=== PATIENT | female | born 1950 | race Caucasian/White ===

== ENCOUNTER 2016-10-19 13:45 | Inpatient (IN) | payer BC ==
[2016-10-19] VITALS (14 sets, daily range): BP systolic 127–164; BP diastolic 66–77; PULSE 88–107; RESP 15–28; TEMP 98.2–99.7; O2SAT 79–98
[~2016-10-19] VITALS: Ht 160 cm; Wt 41.5 kg
[~2016-10-19 13:45] MED LIST: ALBU1AER INH; ASPI81 PO; CALCTAB75 PO; DUONI NEB; HYDR12.56 PO; LEVA750T PO; PRED5 PO; PROT40TA PO; SPIRCAP INH; SYMB80AE INH; TAB-TAB PO; TOPR25TA2 PO
--- NOTE | 2016-10-19 14:00 | PD ---
HPI Chief Complaint: Respiratory Distress Time Seen by Provider: 14:00 Travel History International Travel<30 days: No Contact w/Intl Traveler<30days: No Traveled to known affect area: No History of Present Illness HPI 66-year-old female came to the emergency room brought by her with history of shortness of breath that is progressively worsening for past couple days. Patient requires 4 L of oxygen at home. When she came into the triage with her 4 L of oxygen her oxygen saturation was 65%. Patient appeared to be in significant distress and unable to speak. She was brought back emergently. When I went to see her she was on nonrebreather mask and oxygen saturation was in the low 90s. No history of chest pain or fevers or chills. Rest of the vital signs were within normal limit. [facility] Past Medical History Narrative Medical List of her past medical, surgical, social and family history was reviewed from the nursing note. Arthritis: Yes (back and neck) Asthma: Yes Autoimmune Disease: No Anxiety: No Depression: No Heart Rhythm Problems: No Cancer: No Cardiovascular Problems: Yes High Cholesterol: No Chest Pain: No Congestive Heart Failure: No COPD: Yes (3 L NC AT HOME) Cerebrovascular Accident: No Diabetes: No Endocrine: No Genitourinary: No Headaches: Yes (EVERY NOW ANS THEN) Hypertension: Yes Immune Disorder: No Musculoskeletal: Yes Neurologic: No Psychiatric: No Reproductive: No Respiratory: Yes Migraines: No Myocardial Infarction: Yes (8-10 YEARS AGO) Seizures: No Sleep Apnea: No Thyroid Disease: No Dilation and Curettage (D&C): Yes Tubal Ligation: Yes Past Surgical History Abdominal Surgery: No Cardiac Surgery: No Ear Surgery: No Endocrine Surgery: No Eye Surgery: No Genitourinary Surgery: No Gynecologic Surgery: Yes (D&C) Oral Surgery: No Thoracic Surgery: No Social History Alcohol Use: No Tobacco Use: No Substance Use: No Allergies-Medications (Allergen,Severity, Reaction): Coded Allergies: Bactrim (Verified Allergy, Severe, 10/19/15) Comments List of her allergies reviewed from the nursing note. Reported Meds & Prescriptions Reported Meds & Active Scripts Active Reported Mucinex D Maximum Strength (Pseudoephedrine-Guaifenesin) 120-1,200 Mg Tab Unknown Dose Mucinex Congestion & Cough (Qnfhegbgzhuzu-SO-Ahgyvhdunfm Liq) 2.5-5-100 Mg/5 Ml Liq Vitamin C (Ascorbic Acid) 250 Mg Chew 250 Mg CHEW BID Multi Vitamin Daily (Multiple Vitamin) 1 Tab Tab 1 Tab PO DAILY Probiotic (Lactobacillus Acidophilus) 1 Cap Cap 1 Cap PO BID Aspirin 81 (Aspirin) 81 Mg Tabdr 81 Mg PO DAILY Cipro (Ciprofloxacin HCl) 500 Mg Tab 500 Mg PO BID Metoprolol Tartrate 50 Mg Tab 50 Mg PO BID Symbicort Inh (Budesonide/Formoterol Fumarate) 160-4.5 Mcg/Act Aero 2 Puff INH Q12HR Proair Hfa 8.5 GM Inh (Albuterol Sulfate) 90 Mcg/Act Aer 2 Puff INH Q4-6H PRN 108 mcg/actuation Tobramycin Neb (Tobramycin) 300 Mg/5 Ml Neb 300 Mg NEB TID Sodium Chloride 1 Gm Tab 1 Gm PO BID Sodium Chloride 1 Gm Tab 1 Gm PO BID Spiriva Handihaler (Tiotropium Inh) 18 Mcg Cap 18 Mcg INH DAILY 1 capsule = 18 mcg Albuterol Neb (Albuterol Sulfate) 2.5 Mg/3 Ml Neb 2.5 Mg NEB TID NEB PRN Narrative Medication List of her home medications reviewed from the nursing note. Review of Systems Except as stated in HPI: all other systems reviewed are Neg Physical Exam Narrative GENERAL: Awake, alert, anxious, significant respiratory distress SKIN: Focused skin assessment warm/dry. HEAD: Atraumatic. Normocephalic. EYES: Pupils equal and round. No scleral icterus. No injection or drainage. ENT: No nasal bleeding or discharge. Mucous membranes pink and moist. NECK: Trachea midline. No JVD. CARDIOVASCULAR: Regular rate and rhythm. No murmur appreciated. RESPIRATORY: Respiratory distress with accessory muscles used, tachypnea, significantly diminished air entry bilaterally GASTROINTESTINAL: Abdomen soft, non-tender, nondistended. Hepatic and splenic margins not palpable. MUSCULOSKELETAL: No obvious deformities. No clubbing. No cyanosis. No edema. NEUROLOGICAL: Awake and alert. No obvious cranial nerve deficits. Motor grossly within normal limits. Normal speech. PSYCHIATRIC: Appropriate mood and affect; insight and judgment normal. Data Data Last Documented VS Vital Signs Date Time Temp Pulse Resp B/P Pulse Ox O2 Delivery O2 Flow Rate FiO2 10/19/16 16:11 93 75 10/19/16 16:00 96 28 158/67 BiPAP 10/19/16 14:12 15 10/19/16 13:50 98.2 Orders Albuterol-Ipratropium Neb (Duoneb Neb) (10/19/16 14:08) Complete Blood Count With Diff (10/19/16 14:13) Basic Metabolic Panel (Bmp) (10/19/16 14:13) B-Type Natriuretic Peptide (10/19/16 14:13) Prothrombin Time / Inr (Pt) (10/19/16 14:13) Magnesium (Mg) (10/19/16 14:13) Troponin I (10/19/16 14:13) Urinalysis - C+S If Indicated (10/19/16 14:13) Iv Access Insert/Monitor (10/19/16 14:13) Electrocardiogram (10/19/16 14:13) Ecg Monitoring (10/19/16 14:13) Oximetry (10/19/16 14:13) Oxygen Administration (10/19/16 14:13) Chest, Single Ap (10/19/16 14:13) Sodium Chloride 0.9% Flush (Ns Flush) (10/19/16 14:15) Methylprednisolone So Succ Inj (Solumedr (10/19/16 14:15) Albuterol-Ipratropium Neb (Duoneb Neb) (10/19/16 14:15) Arterial Blood Gas (Abg) (10/19/16 ) Resp Bipap / Cpap Non Invas Vt (10/19/16 ) Arterial Blood Gas (Abg) (10/19/16 15:20) Arterial Blood Gas (Abg) (10/19/16 17:00) Furosemide Inj (Lasix Inj) (10/19/16 16:00) Admit Order (Ed Use Only) (10/19/16 16:45) Labs Laboratory Tests Test 10/19/16 10/19/16 10/19/16 10/19/16 14:10 14:20 15:39 16:20 Blood Gas Puncture Site RT RADIAL RT RADIAL Blood Gas Patient Temperature 98.6 98.6 Blood Gas HCO3 46 mmol/L 46 mmol/L Blood Gas Base Excess 18.4 mmol/L 18.6 mmol/L Blood Gas Oxygen Saturation 93 % 87 % Arterial Blood pH 7.28 7.30 Arterial Blood Partial 101 mmHg 96 mmHg Pressure CO2 Arterial Blood Partial 85 mmHG 62 mmHG Pressure O2 Arterial Blood Oxygen Content 14.0 Vol % 12.3 Vol % Arterial Blood 2.0 % 2.0 % Carboxyhemoglobin Arterial Blood Methemoglobin 0.6 % 0.5 % Blood Gas Hemoglobin 10.6 G/DL 9.9 G/DL Oxygen Delivery Device MASK BiPAP Blood Gas Liter Flow 8 L/M White Blood Count 9.5 TH/MM3 Red Blood Count 4.71 MIL/MM3 Hemoglobin 12.9 GM/DL Hematocrit 41.9 % Mean Corpuscular Volume 89.0 FL Mean Corpuscular Hemoglobin 27.3 PG Mean Corpuscular Hemoglobin 30.7 % Concent Red Cell Distribution Width 16.4 % Platelet Count 155 TH/MM3 Mean Platelet Volume 8.2 FL Neutrophils (%) (Auto) 81.6 % Lymphocytes (%) (Auto) 12.0 % Monocytes (%) (Auto) 4.8 % Eosinophils (%) (Auto) 1.3 % Basophils (%) (Auto) 0.3 % Neutrophils # (Auto) 7.8 TH/MM3 Lymphocytes # (Auto) 1.1 TH/MM3 Monocytes # (Auto) 0.5 TH/MM3 Eosinophils # (Auto) 0.1 TH/MM3 Basophils # (Auto) 0.0 TH/MM3 CBC Comment DIFF FINAL Differential Comment Prothrombin Time 10.1 SEC Prothromb Time International 0.9 RATIO Ratio Sodium Level 143 MEQ/L Potassium Level 4.6 MEQ/L Chloride Level 97 MEQ/L Carbon Dioxide Level GREATER THAN 45.0 MEQ/L Anion Gap 1 MEQ/L Blood Urea Nitrogen 20 MG/DL Creatinine 0.55 MG/DL Estimat Glomerular Filtration 111 ML/MIN Rate Random Glucose 111 MG/DL Calcium Level 9.7 MG/DL Magnesium Level 2.4 MG/DL Troponin I LESS THAN 0.02 NG/ML B-Type Natriuretic Peptide 143 PG/ML Blood Gas Ventilator Setting Blood Gas Inspired Oxygen 50 % Urine Color YELLOW Urine Turbidity CLEAR Urine pH 5.5 Urine Specific [place] 1.023 Urine Protein 30 mg/dL Urine Glucose (UA) NEG mg/dL Urine Ketones 10 mg/dL Urine Occult Blood NEG Urine Nitrite NEG Urine Bilirubin NEG Urine Urobilinogen LESS THAN 2.0 MG/DL Urine Leukocyte Esterase SMALL Urine RBC 4 /hpf Urine WBC 5 /hpf Urine Squamous Epithelial 1 /hpf Cells Urine Bacteria RARE /hpf Urine Hyaline Casts 3 /lpf Urine Mucus FEW /lpf Microscopic Urinalysis Comment CULT NOT INDICATED MDM Medical Decision Making Medical Screen Exam Complete: Yes Emergency Medical Condition: Yes Medical Record Reviewed: Yes Interpretation(s) Twelve-lead EKG was reviewed by me. Normal sinus rhythm, normal axis, nonspecific ST-T wave changes. Heart rate of 89 bpm. Differential Diagnosis COPD exacerbation, pneumonia, pleural effusion, congestive heart failure Narrative Course 4:08 PM patient received duo nebs 3 and IV Solu-Medrol. I put her on a BiPAP based on the initial blood gas which showed significant respiratory acidosis. Blood test results came back and she does have chronic CO2 retention from what it's looks like. Repeat blood gas after being on the BiPAP for 45 minutes or more showed slight improvement. I've made setting changes on the BiPAP and the FiO2 has been increased from 50% to 70%. A repeat blood gas is pending. Chest x-ray suggestive of COPD and some pleural effusion. I've given her 40 mg of IV Lasix. Awaiting for the aquarist to call back to admit her. Critical Care Narrative Aggregate critical care time was 60 minutes. Time to perform other separately billable procedures was not included in the critical care time. My time did not include minutes spent treating any other patients simultaneously or on activities that did not directly contribute to the patient's treatment. The services I provided to this patient were to treat and/or prevent clinically significant deterioration that could result in: Severe respiratory distress, BiPAP, DuoNeb I provided critical care services requiring my management, as noted below: Chart data review, documentation time, medication orders and management, vital sign assessments/reviewing monitor data, ordering and reviewing lab tests, ordering and interpreting/reviewing x-rays and diagnostic studies, care of the patient and discussion of the patient with the admitting physicians. Procedures EKG Prior to Arrival: No Diagnosis Primary Impression: Respiratory distress Additional Impressions: COPD exacerbation Hypoxia Pleural effusion Admitting Information Admitting Physician Requests: Mojgan Turner MD Oct 19, 2016 14:00
[2016-10-19] MEDS ORDERED: RESP: ALBUTEROL 2.5 MG/IPRATROPIUM 0.5 MG NEB (SCH) ONE (14:08)
[2016-10-19] MEDS ORDERED: CIPR-9 PO (14:11)
[2016-10-19] MEDS ORDERED: SODI1TAB PO (14:11)
[2016-10-19] MEDS ORDERED: ASPI-110 PO (14:11)
[2016-10-19] MEDS ORDERED: LACTCAP8 PO (14:11)
[2016-10-19] MEDS ORDERED: MUCI120T (14:11)
[2016-10-19] MEDS ORDERED: METO50TA PO (14:11)
[2016-10-19] MEDS ORDERED: ALBUAER3 INH (14:11)
[2016-10-19] MEDS ORDERED: MULT1TAB46 PO (14:11)
[2016-10-19] MEDS ORDERED: TOBR1NEB NEB (14:11)
[2016-10-19] MEDS ORDERED: VITA250C3 CHEW (14:11)
[2016-10-19] MEDS ORDERED: ALBU0.08 NEB (14:11)
[2016-10-19] MEDS ORDERED: SPIRCAP INH (14:11)
[2016-10-19] MEDS ORDERED: SYMB160A INH (14:11)
[2016-10-19] MEDS ORDERED: PHEN1LIQ (14:11)
[2016-10-19] MEDS ORDERED: SODIUM CHLORIDE 0.9% FLUSH 10 ML FLUSH IVF PRN (14:15)
[2016-10-19] MEDS ORDERED: methylPREDNISolone SOD SUCC 125 MG/2 ML VIAL IVP ONE (14:15)
[2016-10-19] MEDS: RESP: ALBUTEROL 2.5 MG/IPRATROPIUM 0.5 MG NEB (SCH) INH ×5 (14:15→23:11)
[2016-10-19 14:18] LABS: BLOOD GAS BASE EXCESS 18.4 mmol/L (-2-2); BLOOD GAS HCO3 46 mmol/L (22-26); BLOOD GAS METHEMOGLOBIN 0.6 % (0-2); BLOOD GAS O2 HGB SATURATION 93 % (90-100); BLOOD GAS PCO2 101 mmHg (38-42); BLOOD GAS PO2 85 mmHG (61-120); BLOOD GAS TOTAL HGB 10.6 G/DL (12.0-16.0); CRITICAL VALUE YES; DRAW SITE RT RADIAL; LITER FLOW 8 L/M; NUMBER OF ARTERIAL PUNCTURES 1; OXYGEN DEVICE MASK; STAT YES; TEMP CORR TO 98.6; ULNAR PULSE PRESENT
[2016-10-19 14:47] LABS: INTERNATIONAL NORMALIZED RATIO 0.9 RATIO; PROTHROMBIN TIME - PATIENT 10.1 SEC (9.8-11.6)
[2016-10-19 14:50] LABS: BLOOD UREA NITROGEN 20 MG/DL (7-18); CHLORIDE 97 MEQ/L (98-107); GLOMERULAR FILTRATION RATE 111 ML/MIN (>89); MAGNESIUM 2.4 MG/DL (1.5-2.5); POTASSIUM 4.6 MEQ/L (3.5-5.1); SODIUM (NA) 143 MEQ/L (136-145)
[2016-10-19 14:53] LABS: AUTOMATED NEUTROPHIL # 7.8 TH/MM3 (1.8-7.7); BASOPHIL % 0.3 % (0.0-2.0); EOSINOPHIL # 0.1 TH/MM3 (0-0.4); EOSINOPHIL % 1.3 % (0.0-4.0); HEMATOCRIT 41.9 % (35.0-46.0); HEMO FLAGS DIFF FINAL; LYMPHOCYTE # 1.1 TH/MM3 (1.0-4.8); MEAN CORPUSCULAR HEMOGLOBIN 27.3 PG (27.0-34.0); MEAN CORPUSCULAR HGB CONC 30.7 % (32.0-36.0); MONO % 4.8 % (0.0-8.0); NEUT % 81.6 % (16.0-70.0); PLATELET COUNT 155 TH/MM3 (150-450); RED BLOOD COUNT 4.71 MIL/MM3 (4.00-5.30); RED CELL DISTRIBUTION WIDTH 16.4 % (11.6-17.2); WHITE BLOOD COUNT 9.5 TH/MM3 (4.0-11.0)
--- NOTE | 2016-10-19 15:00 | RADRPT ---
EXAM DATE/TIME: 10/19/2016 14:34 [facility] COMPARISON: CHEST SINGLE AP, October 23, 2015, 8:50. INDICATIONS : Shortness of breath. MEDICAL HISTORY : Hypertension. Emphysema. Myocardial infarction. COPD SURGICAL HISTORY : None. ENCOUNTER: Initial ACUITY: 1 day PAIN SCORE: 0/10 LOCATION: Bilateral chest FINDINGS: Haziness and interstitial prominence has developed in the lungs. There are bilateral effusions with s mall to moderate moderate accumulation on the right and small effusion on the left. Heart is mildly enlarged. Bibasilar airspace disease is noted. CONCLUSION: COPD with underlying pulmonary congestion, basilar airspace disease and bilateral pleural effusions. Misbah Anand MD on October 19, 2016 at 14:56 Board Certified Radiologist. This report was verified electronically.
[2016-10-19 15:28] LABS: ANION GAP 1 MEQ/L (5-15); BICARBONATE GREATER THAN 45.0 MEQ/L (21.0-32.0)
[2016-10-19] MEDS ORDERED: FUROSEMIDE 40 MG/4 ML VIAL IV PUSH ONE (16:00)
[2016-10-19 16:09] LABS: BLOOD GAS BASE EXCESS 18.6 mmol/L (-2-2); BLOOD GAS HCO3 46 mmol/L (22-26); BLOOD GAS METHEMOGLOBIN 0.5 % (0-2); BLOOD GAS O2 HGB SATURATION 87 % (90-100); BLOOD GAS OXYGEN CONTENT 12.3 Vol % (12.0-20.0); BLOOD GAS PCO2 96 mmHg (38-42); BLOOD GAS PO2 62 mmHG (61-120); BLOOD GAS TOTAL HGB 9.9 G/DL (12.0-16.0); TEMP CORR TO 98.6
[2016-10-19 16:10] LABS: CRITICAL VALUE YES; DRAW SITE RT RADIAL; FIO2 50 %; NUMBER OF ARTERIAL PUNCTURES 1; OXYGEN DEVICE BiPAP; STAT NO; ULNAR PULSE PRESENT
[2016-10-19 16:39] LABS: BACTERIA, URINE RARE /hpf; BLOOD, URINE NEG (NEG); COMMENT (UR) CULT NOT INDICATED; CULTURE IF INDICATED CULT NOT INDICATED; GLUCOSE,URINE NEG (NEG); HYALINE CAST, URINE 3 /lpf (RARE); KETONE, URINE 10 mg/dL (NEG); MUCUS URINE FEW /lpf (OCC); NITRITE,URINE NEG (NEG); PH, URINE 5.5 (5.0-8.5); SQUAMOUS EPITHELIAL CELL URINE 1 /hpf (0-5); URINE COLOR YELLOW (YELLW/STRAW)
[2016-10-19 17:17] LABS: BLOOD GAS BASE EXCESS 20.6 mmol/L (-2-2); BLOOD GAS CARBOXYHEMOGLOBIN 1.9 % (0-4); BLOOD GAS HCO3 48 mmol/L (22-26); BLOOD GAS METHEMOGLOBIN 0.6 % (0-2); BLOOD GAS O2 HGB SATURATION 94 % (90-100); BLOOD GAS OXYGEN CONTENT 14.3 Vol % (12.0-20.0); BLOOD GAS PCO2 96 mmHg (38-42); BLOOD GAS PO2 87 mmHG (61-120); BLOOD GAS TOTAL HGB 10.7 G/DL (12.0-16.0); CRITICAL VALUE YES; OXYGEN DEVICE BiPAP; TEMP CORR TO 98.6
[2016-10-19 17:18] LABS: DRAW SITE RT RADIAL; FIO2 75 %; NUMBER OF ARTERIAL PUNCTURES 1; STAT NO; ULNAR PULSE PRESENT
--- NOTE | 2016-10-19 17:44 | HHI.HP ---
[facility] Service Critical Care Medicine Primary Care Physician Patricia Acuña MD Admission Diagnosis respiratory distress, hypoxia, respiratory acidosis Diagnosis: (1) Acute exacerbation of chronic obstructive pulmonary disease (COPD) Diagnosis: Principal (2) Atypical pneumonia Diagnosis: Principal (3) Chronic respiratory failure with hypoxia Diagnosis: Principal (4) Hypertension Diagnosis: Principal (5) CAD (coronary artery disease) Diagnosis: Principal (6) Vertical strabismus, left eye Diagnosis: Principal (7) Osteoarthritis Diagnosis: Principal (8) History of myocardial infarction Diagnosis: Principal Chief Complaint: Shortness of breath 2 weeks Travel History International Travel<30 Days: No Contact w/Intl Traveler <30 Da: No Traveled to Known Affected Are: No History of Present Illness 66-year-old female. Date of admission 10/19/2016. Past medical history includes chronic respiratory failure on 3-4 L nasal cannula at home and follows with Dr. Knapp for pulmonology. Past medical history as includes osteoarthritis, history of coronary disease status post [place] 10 years ago and hypertension. Patient resists the [facility] with a two-week history of increasing shortness of breath, sputum production/green to white. No hemoptysis. Review of Systems Constitutional: COMPLAINS OF: Fatigue, Weight loss, DENIES: Weight gain Endocrine: DENIES: Polydipsia, Polyuria Eyes: DENIES: Eye pain, Vision loss Ears, nose, mouth, throat: COMPLAINS OF: Hearing loss, DENIES: Tinnitus Respiratory: COMPLAINS OF: Cough, Sputum production, Shortness of breath, DENIES: Apneas, Wheezing Cardiovascular: DENIES: Chest pain, Lower Extremity Edema Gastrointestinal: COMPLAINS OF: Abdominal pain, Nausea, Vomiting, DENIES: Constipation, Diarrhea, Difficulty Swallowing Genitourinary: DENIES: Urinary incontinence, Urgency Musculoskeletal: DENIES: Joint pain, Joint Swelling Integumentary: DENIES: Pruritus Hematologic/lymphatic: DENIES: Bruising Immunologic/allergic: DENIES: Eczema Neurologic: DENIES: Abnormal gait, Headache Psychiatric: COMPLAINS OF: Anxiety, DENIES: Confusion, Mood changes Past Family Social History Allergies: Coded Allergies: Bactrim (Verified Allergy, Severe, 10/19/15) Past Medical History Left eye strabismus Osteoarthritis Obstructive lung disease Chronic respiratory failure on 3-4 L nasal cannula Coronary artery disease History of myocardial infarction Hypertension Past Surgical History D&C Tubal ligation Reported Medications Mucinex D Maximum Strength (Pseudoephedrine-Guaifenesin) 120-1,200 Mg Tab Unknown Dose Mucinex Congestion & Cough (Aaiovjzpwudfz-WU-Xnpguutaotx Liq) 2.5-5-100 Mg/5 Ml Liq Vitamin C (Ascorbic Acid) 250 Mg Chew 250 Mg CHEW BID Multi Vitamin Daily (Multiple Vitamin) 1 Tab Tab 1 Tab PO DAILY Probiotic (Lactobacillus Acidophilus) 1 Cap Cap 1 Cap PO BID Aspirin 81 (Aspirin) 81 Mg Tabdr 81 Mg PO DAILY Cipro (Ciprofloxacin HCl) 500 Mg Tab 500 Mg PO BID Metoprolol Tartrate 50 Mg Tab 50 Mg PO BID Symbicort Inh (Budesonide/Formoterol Fumarate) 160-4.5 Mcg/Act Aero 2 Puff INH Q12HR Proair Hfa 8.5 GM Inh (Albuterol Sulfate) 90 Mcg/Act Aer 2 Puff INH Q4-6H PRN 108 mcg/actuation Tobramycin Neb (Tobramycin) 300 Mg/5 Ml Neb 300 Mg NEB TID Sodium Chloride 1 Gm Tab 1 Gm PO BID Sodium Chloride 1 Gm Tab 1 Gm PO BID Spiriva Handihaler (Tiotropium Inh) 18 Mcg Cap 18 Mcg INH DAILY 1 capsule = 18 mcg Albuterol Neb (Albuterol Sulfate) 2.5 Mg/3 Ml Neb 2.5 Mg NEB TID NEB PRN Active Ordered Medications Reviewed in EMR Family History Father with prostate cancer with metastases to the bone Mother with brain cancer Social History No tobacco history. nO Alcohol or IV drug use Physical Exam Vital Signs Vital Signs Date Time Temp Pulse Resp B/P Pulse Ox O2 Delivery O2 Flow Rate FiO2 10/19/16 17:00 94 28 154/67 93 BiPAP 50 10/19/16 16:11 93 75 10/19/16 16:00 96 28 158/67 94 BiPAP 50 10/19/16 15:00 90 28 155/66 95 BiPAP 10/19/16 14:38 96 50 10/19/16 14:27 95 BiPAP 50 10/19/16 14:12 88 15 164/72 91 Non-Rebreather 15 10/19/16 13:56 20 68 Nasal Cannula 4 10/19/16 13:56 92 Non-Rebreather 10/19/16 13:56 94 Non-Rebreather 15 10/19/16 13:50 98.2 90 20 127/70 79 Room Air Physical Exam GENERAL: 66-year-old female, currently clear currently resting in bed on BiPAP SKIN: Warm and dry. No rash HEAD: Atraumatic. Normocephalic. EYES: Pupils equal and round about 3 mm bilaterally and reactive. No scleral icterus. No injection or drainage. ENT: No nasal bleeding or discharge. Mucous membranes pink and moist. NECK: Trachea midline. No JVD. CARDIOVASCULAR: Regular rate and rhythm. S1, S2. No S4. Without murmur RESPIRATORY: Ms. breath sounds throughout. Positive straight extremities. Few crackles patient bases bilaterally.. GASTROINTESTINAL: Abdomen soft, non-tender, scaphoid. Hypoactive bowel sounds. MUSCULOSKELETAL: Extremities trace nonpitting lower extremity edema. Negative Homans sign. No obvious deformities. NEUROLOGICAL: Awake and alert. No obvious cranial nerve deficits. Motor grossly within normal limits. Five out of 5 muscle strength in the arms and legs. Normal speech. PSYCHIATRIC: Appropriate mood and affect; insight and judgment normal. Laboratory Laboratory Tests Test 10/19/16 10/19/16 10/19/16 10/19/16 14:10 14:20 15:39 16:20 Blood Gas Puncture Site RT RADIAL RT RADIAL Blood Gas Patient Temperature 98.6 98.6 Blood Gas HCO3 46 46 Blood Gas Base Excess 18.4 18.6 Blood Gas Oxygen Saturation 93 87 Arterial Blood pH 7.28 7.30 Arterial Blood Partial 101 96 Pressure CO2 Arterial Blood Partial 85 62 Pressure O2 Arterial Blood Oxygen Content 14.0 12.3 Arterial Blood 2.0 2.0 Carboxyhemoglobin Arterial Blood Methemoglobin 0.6 0.5 Blood Gas Hemoglobin 10.6 9.9 Oxygen Delivery Device MASK BiPAP Blood Gas Liter Flow 8 White Blood Count 9.5 Red Blood Count 4.71 Hemoglobin 12.9 Hematocrit 41.9 Mean Corpuscular Volume 89.0 Mean Corpuscular Hemoglobin 27.3 Mean Corpuscular Hemoglobin 30.7 Concent Red Cell Distribution Width 16.4 Platelet Count 155 Mean Platelet Volume 8.2 Neutrophils (%) (Auto) 81.6 Lymphocytes (%) (Auto) 12.0 Monocytes (%) (Auto) 4.8 Eosinophils (%) (Auto) 1.3 Basophils (%) (Auto) 0.3 Neutrophils # (Auto) 7.8 Lymphocytes # (Auto) 1.1 Monocytes # (Auto) 0.5 Eosinophils # (Auto) 0.1 Basophils # (Auto) 0.0 CBC Comment DIFF FINAL Differential Comment Prothrombin Time 10.1 Prothromb Time International 0.9 Ratio Sodium Level 143 Potassium Level 4.6 Chloride Level 97 Carbon Dioxide Level GREATER THAN 45.0 Anion Gap 1 Blood Urea Nitrogen 20 Creatinine 0.55 Estimat Glomerular Filtration 111 Rate Random Glucose 111 Calcium Level 9.7 Magnesium Level 2.4 Troponin I LESS THAN 0.02 B-Type Natriuretic Peptide 143 Blood Gas Ventilator Setting Blood Gas Inspired Oxygen 50 Urine Color YELLOW Urine Turbidity CLEAR Urine pH 5.5 Urine Specific [place] 1.023 Urine Protein 30 Urine Glucose (UA) NEG Urine Ketones 10 Urine Occult Blood NEG Urine Nitrite NEG Urine Bilirubin NEG Urine Urobilinogen LESS THAN 2.0 Urine Leukocyte Esterase SMALL Urine RBC 4 Urine WBC 5 Urine Squamous Epithelial 1 Cells Urine Bacteria RARE Urine Hyaline Casts 3 Urine Mucus FEW Microscopic Urinalysis Comment CULT NOT INDICATED Test 10/19/16 17:02 Blood Gas Puncture Site RT RADIAL Blood Gas Patient Temperature 98.6 Blood Gas HCO3 48 Blood Gas Base Excess 20.6 Blood Gas Oxygen Saturation 94 Arterial Blood pH 7.32 Arterial Blood Partial 96 Pressure CO2 Arterial Blood Partial 87 Pressure O2 Arterial Blood Oxygen Content 14.3 Arterial Blood 1.9 Carboxyhemoglobin Arterial Blood Methemoglobin 0.6 Blood Gas Hemoglobin 10.7 Oxygen Delivery Device BiPAP Blood Gas Ventilator Setting Blood Gas Inspired Oxygen 75 Result Diagram: 10/19/16 1420 10/19/16 1420 Imaging Last Impressions Chest X-Ray 10/19/16 1413 Signed Impressions: Service Date/Time: October 14:34 - CONCLUSION: COPD with underlying pulmonary congestion, basilar airspace disease and bilateral pleural effusions. Misbah Anand MD Assessment and Plan Assessment and Plan Neuro/Psych: Acetaminophen for fever [place]/morphine for pain management CV: Coronary artery disease Hypertension Continue metoprolol 50 mill grams by mouth twice a day for essential hypertension 2-D echocardiogram ordered. Troponin less than 0.02 EKG reveals no signs of acute ST elevation. There is left axis deviation/mild LVH appreciated Resp Acute on chronic respiratory failure History of obstructive lung disease. No smoking history. Alpha-1 anti-trypsin workup negative Currently on BiPAP 16/80 at 50% Wean FiO2 to keep saturations around [address] knapp/pulmonology Bronchodilator therapy every 6 hours and albuterol every 2 hours when necessary dyspnea Follow-up chest images AM. GI: Nausea/vomiting LFT/lipase pending Currently nothing by mouth Protonix for GI prophylaxis Alyssa-Colace twice a day for bowel regimen : Coffman catheter if indicated for accurate I's and O's in a critically ill patient Endo: Sliding-scale insulin with Accu-Cheks to maintain euglycemia/low regimen Renal: Creatinine currently within normal limits Accurate I's and O's Monitor urine output closely Heme: CBC essentially within normal limits Recheck in a.m. ID: Day 1 cefepime/Zithromax and vancomycin for community-acquired pneumonia/ICU per [facility] protocol Previously on ciprofloxacin and Terramycin aerosols twice a day Blood cultures 2, urine Legionella pneumococcal/influenza in sputum all pending Previously on tobramycin aerosols and ciprofloxacin MSK: PT to evaluate and treat FEN: Replace electrolytes as clinically indicated Access - Peripheral IV. Central line if indicated Prophylaxis - GI - Protonix - DVT - SCD/heparin subcutaneous Critical Care: The total critical care time was 55 minutes. Time to perform other separately billable procedures was not included in the critical care time. Code Status Full code Discussed Condition With Dr. Shelton/ED physician and patient. at bedside Care plan discussed all questions answered. Problem Qualifiers (1) Hypertension: Qualified Code: I10 - Essential hypertension (2) CAD (coronary artery disease): Qualified Code: I25.10 - Coronary artery disease involving pauma heart without angina pectoris, unspecified vessel or lesion type (3) Osteoarthritis: Qualified Code: M19.90 - Osteoarthritis, unspecified osteoarthritis type, unspecified site Han Alvarez MD Oct 19, 2016 17:44
[2016-10-19] MEDS ORDERED: BISACODYL 10 MG SUPP RECTAL PRN (17:45)
[2016-10-19] MEDS ORDERED: LACTULOSE SYRUP 20 GM/30 ML CUP PO PRN (17:45)
[2016-10-19] MEDS ORDERED: MAGNESIUM HYDROXIDE SUSP 30 ML CUP PO PRN (17:45)
[2016-10-19] MEDS ORDERED: CHLORHEXIDINE GLUCONATE 2 % 1 PACK (2 CLOTHS) TOP PRN (17:45)
[2016-10-19] MEDS ORDERED: RESP: ALBUTEROL 2.5 MG/3 ML NEB (PRN) INH (17:45)
[2016-10-19] MEDS ORDERED: SODIUM CHLORIDE 0.9% FLUSH 10 ML FLUSH IV FLUSH PRN (17:45)
[2016-10-19] MEDS ORDERED: MORPHINE SULFATE 4 MG/ML INJ IV PRN (17:45)
[2016-10-19] MEDS ORDERED: Vancomycin Consult Pharmacy 1 EA OTHER SCH (17:45)
[2016-10-19] MEDS ORDERED: MISCELLANEOUS NURSING INFORMATION XX SCH (17:45)
[2016-10-19] MEDS ORDERED: SENNOSIDES 8.6 MG TAB PO PRN (17:45)
[2016-10-19] MEDS ORDERED: ONDANSETRON HCL 4 MG/2 ML VIAL IV PRN (17:45)
[2016-10-19] MEDS: SODIUM CHLOR 0.9% 1000 ML INJ 1,000 ML IV SCH (18:49)
[2016-10-19] MEDS: ARTIFICIAL TEARS OPTH SOLN 15 ML BTL EACH EYE SCH (18:51)
--- NOTE | 2016-10-19 19:21 | RADRPT ---
EXAM DATE/TIME: 10/19/2016 18:51 [facility] COMPARISON: No previous studies available for comparison. INDICATIONS : Bilateral leg edema. MEDICAL HISTORY : Myocardial infarction. Osteoporosis. Emphysema. COPD. Asthma. Sputum production. Dyspnea. Abdominal p ain. HTN. Arthritis. Anxiety. Shingles. SURGICAL HISTORY : Tubal ligation. D&C. ENCOUNTER: Initial ACUITY: 1 day PAIN SCORE: 0/10 LOCATION: Bilateral leg. TECHNIQUE: Venous ultrasound of the left and right leg was performed from the inguinal ligament to the proximal calf. Real-time, color Doppler and spectral tracing, compression and augmentation techniques were us ed. FINDINGS: RIGHT LEG: There is normal compressibility of the deep venous system from the inguinal region to the proximal ca lf. No echogenic clot is seen in the lumen of the common femoral, femoral, popliteal, and posterior tibial veins. There is a normal response of the venous system to proximal and distal augmentation an d respiration. LEFT LEG: There is normal compressibility of the deep venous system from the inguinal region to the proximal ca lf. No echogenic clot is seen in the lumen of the common femoral, femoral, popliteal, and posterior tibial veins. There is a normal response of the venous system to proximal and distal augmentation an d respiration. CONCLUSION: No DVT of either lower extremity. Negro Rodrigez MD on October 19, 2016 at 19:19 Board Certified Radiologist. This report was verified electronically.
[2016-10-19] MEDS: CEFEPIME INJ 2,000 MG in SODIUM CHLORIDE 0.9% INJ 100 ML IV SCH (19:31)
[2016-10-19] MEDS: VANCOMYCIN INJ 750 MG in SODIUM CHLOR 0.9% 250 ML INJ 250 ML IV SCH (19:53)
[2016-10-19] MEDS: BUDESONIDE-FORMOTEROL 160/4.5 MCG INHALER INH SCH (21:00)
[2016-10-19] MEDS: ENOXAPARIN SODIUM 40 MG/0.4 ML SYRINGE SQ SCH (21:32)
[2016-10-19] MEDS: DOCUSATE SODIUM 50 MG/SENNA 8.6 MG TAB PO SCH (21:32)
[2016-10-19] MEDS: AZITHROMYCIN INJ 500 MG in SODIUM CHLOR 0.9% 250 ML INJ 250 ML IV SCH (21:32)
[2016-10-19] MEDS: METOPROLOL TARTRATE 50 MG TAB PO SCH (21:32)
[2016-10-19] MEDS: CHLORHEXIDINE GLUCONATE 2 % 1 PACK (2 CLOTHS) TOP SCH (21:33)
[2016-10-19] MEDS: SODIUM CHLORIDE 0.9% FLUSH 10 ML FLUSH IV FLUSH SCH (21:38)
[2016-10-20] VITALS (19 sets, daily range): BP systolic 116–141; BP diastolic 54–69; PULSE 77–96; RESP 20–30; TEMP 98.1–98.7; O2SAT 89–100
[2016-10-20 01:00] LABS: INDIRECT BILIRUBIN 0.3 MG/DL (0.0-0.8); TOTAL BILIRUBIN ADULT 0.4 MG/DL (0.2-1.0)
[2016-10-20] MEDS ORDERED: methylPREDNISolone SOD SUCC 40 MG/1 ML VIAL IV SCH (02:00)
[2016-10-20] MEDS: RESP: ALBUTEROL 2.5 MG/IPRATROPIUM 0.5 MG NEB (SCH) INH ×3 (03:17→11:04)
[2016-10-20] MEDS: CEFEPIME INJ 2,000 MG in SODIUM CHLORIDE 0.9% INJ 100 ML IV SCH ×3 (03:40→18:49)
[2016-10-20 05:12] LABS: AUTOMATED NEUTROPHIL # 5.8 TH/MM3 (1.8-7.7); BASOPHIL % 0.1 % (0.0-2.0); HEMATOCRIT 30.3 % (35.0-46.0); LYMPHOCYTE # 0.6 TH/MM3 (1.0-4.8); MEAN CORPUSCULAR HEMOGLOBIN 27.1 PG (27.0-34.0); MEAN CORPUSCULAR HGB CONC 30.9 % (32.0-36.0); MONO % 4.4 % (0.0-8.0); NEUT % 86.5 % (16.0-70.0); PLATELET COUNT 97 TH/MM3 (150-450); RED BLOOD COUNT 3.45 MIL/MM3 (4.00-5.30); RED CELL DISTRIBUTION WIDTH 15.5 % (11.6-17.2); WHITE BLOOD COUNT 6.7 TH/MM3 (4.0-11.0)
[2016-10-20 05:13] LABS: HEMO FLAGS AUTO DIFF
[2016-10-20 05:25] LABS: APTT (PATIENT) 28.9 SEC (24.3-30.1); PROTHROMBIN TIME - PATIENT 11.1 SEC (9.8-11.6)
[2016-10-20 05:43] LABS: ALKALINE PHOSPHATASE 64 U/L (45-117); ALT (GPT) 16 U/L (10-53); AST (GOT) 9 U/L (15-37); BLOOD UREA NITROGEN 20 MG/DL (7-18); CHLORIDE 97 MEQ/L (98-107); GLOMERULAR FILTRATION RATE 156 ML/MIN (>89); MAGNESIUM 2.1 MG/DL (1.5-2.5); POTASSIUM 4.4 MEQ/L (3.5-5.1); SODIUM (NA) 145 MEQ/L (136-145); TOTAL BILIRUBIN ADULT 0.3 MG/DL (0.2-1.0)
[2016-10-20 05:53] LABS: ANION GAP 3 MEQ/L (5-15); BICARBONATE GREATER THAN 45.0 MEQ/L (21.0-32.0)
[2016-10-20 06:04] LABS: SCAN/DIFF AUTO DIFF CONFIRMED
[2016-10-20] MEDS: SODIUM CHLOR 0.9% 1000 ML INJ 1,000 ML IV SCH ×2 (06:36→17:42)
--- NOTE | 2016-10-20 06:53 | HHI.CCPN ---
Subjective Remarks/Hospital Course 66-year-old female. Date of admission 10/19/2016. Past medical history includes chronic respiratory failure on 3-4 L nasal cannula at home and follows with Dr. Knapp for pulmonology. Past medical history as includes osteoarthritis, history of coronary disease status post NC 10 years ago and hypertension. Patient presents to the [facility] ED with a two-week history of increasing shortness of breath, sputum production/green to white. No hemoptysis. She presented to the ED. Initially placed on BiPAP and noted to have an elevated PCO2 greater than 100. After adjustments PCO2 remained above 95 however the patient was awake and alert and oriented to person place time and year. Decision was made to monitor. Subjective 10/20: Afebrile. Taken off BiPAP earlier this evening in currently on 4 L nasal cannula. States she feels subjectively improved. Continues to have cough productive of white sputum. Objective Vital Signs Date Time Temp Pulse Resp B/P Pulse Ox O2 Delivery O2 Flow Rate FiO2 10/20/16 05:00 88 24 134/61 91 10/20/16 04:00 98.6 10/20/16 02:00 Nasal Cannula 5.00 10/19/16 19:30 40 Intake and Output 10/19/16 10/19/16 10/20/16 08:00 16:00 00:00 Intake Total 736 ml Output Total 100 ml Balance 636 ml Result Diagram: 10/20/16 0452 10/20/16 0452 Other Results Microbiology Date/Time Procedure Status Source Growth 10/19/16 18:30 Gram Stain Received Sputum Expectorated Sputum Pending 10/19/16 18:30 Sputum Culture Received Sputum Expectorated Sputum Pending Imaging Last Impressions Chest X-Ray 10/19/16 1413 Signed Impressions: Service Date/Time: October 14:34 - CONCLUSION: COPD with underlying pulmonary congestion, basilar airspace disease and bilateral pleural effusions. Misbah Anand MD Lower Extremity Ultrasound 10/19/16 0000 Signed Impressions: Service Date/Time: October 18:51 - CONCLUSION: No DVT of either lower extremity. Negro Rodrigez MD Objective Remarks GENERAL: 66-year-old female, resting in bed on nasal cannula in no acute distress SKIN: Warm and dry. No rash HEAD: Atraumatic. Normocephalic. EYES: Pupils equal and round about 2-3 mm bilaterally and reactive. No scleral icterus. No injection or drainage. ENT: No nasal bleeding or discharge. Mucous membranes pink and moist. Oropharynx without thrush NECK: Trachea midline. No JVD. CARDIOVASCULAR: Regular rate and rhythm. S1, S2. No S4. Without murmur RESPIRATORY: Few crackles appreciated in the bases bilaterally. Positive end expiratory wheeze. GASTROINTESTINAL: Abdomen soft, non-tender, scaphoid. Hypoactive bowel sounds. MUSCULOSKELETAL: Extremities trace nonpitting lower extremity edema. Negative Homans sign. No obvious deformities. NEUROLOGICAL: Awake and alert. No obvious cranial nerve deficits. Motor grossly within normal limits. Five out of 5 muscle strength in the arms and legs. Normal speech. PSYCHIATRIC: Appropriate mood and affect; insight and judgment normal. A/P Assessment and Plan Neuro/Psych: Acetaminophen for fever [place]/morphine for pain management CV: Coronary artery disease Hypertension Continue metoprolol 50 mill grams by mouth twice a day for essential hypertension 2-D echocardiogram ordered. Results pending Troponin less than 0.02 EKG reveals no signs of acute ST elevation. There is left axis deviation/mild LVH appreciated Resp Acute on chronic respiratory failure History of obstructive lung disease. No smoking history. Alpha-1 anti-trypsin workup negative Currently on nasal cannula to maintain saturations greater than equal to 92% Wean FiO2 to keep saturations around [address] Knapp/pulmonology Bronchodilator therapy every 6 hours and albuterol every 2 hours when necessary dyspnea Continue Symbicort 160/4.5 2 puffs twice a day Continue Spiriva 18 g inhalation daily Follow-up CT chest AM. 1 dose of Diamox due to significant alkalosis GI: Nausea/vomiting LFT/lipase negative Currently nothing by mouth. Will initiate diet Protonix for GI prophylaxis Alyssa-Colace twice a day for bowel regimen : Coffman catheter if indicated for accurate I's and O's in a critically ill patient Endo: Sliding-scale insulin with Accu-Cheks to maintain euglycemia/low regimen Renal: Creatinine currently within normal limits Accurate I's and O's Monitor urine output closely Heme: Normocytic anemia Thrombocytopenia Likely partially dilutional. We'll recheck CBC in AM. Monitor trends ID: Day 2 cefepime/Zithromax and vancomycin for community-acquired pneumonia/ICU per [facility] protocol Previously on ciprofloxacin and Terramycin aerosols twice a day Blood cultures 2, urine Legionella pneumococcal/influenza and sputum all pending Previously on tobramycin aerosols and ciprofloxacin MSK: PT to evaluate and treat FEN: Replace electrolytes as clinically indicated Previous on scheduled sodium chloride 2 g daily Access - Peripheral IV. Central line if indicated Prophylaxis - GI - Protonix - DVT - SCD/Lovenox subcutaneous Critical Care: The total care time was 35 minutes. Time to perform other separately billable procedures was not included in the critical care time. Level II Han Alvarez MD Oct 20, 2016 06:53
[2016-10-20] MEDS ORDERED: PILL SPLITTER OTHER PRN (07:00)
[2016-10-20] MEDS: ARTIFICIAL TEARS OPTH SOLN 15 ML BTL EACH EYE SCH ×3 (07:54→17:42)
[2016-10-20] MEDS: VANCOMYCIN INJ 750 MG in SODIUM CHLOR 0.9% 250 ML INJ 250 ML IV SCH ×2 (07:54→23:04)
[2016-10-20] MEDS: MULTIVITAMIN TAB PO SCH (07:55)
[2016-10-20] MEDS: METOPROLOL TARTRATE 50 MG TAB PO SCH ×2 (07:55→23:02)
[2016-10-20] MEDS: ASCORBIC ACID 500 MG TAB PO SCH (07:55)
[2016-10-20] MEDS: ASPIRIN EC 81 MG TABEC PO SCH (07:55)
[2016-10-20] MEDS: SODIUM CHLORIDE 0.9% FLUSH 10 ML FLUSH IV FLUSH SCH ×2 (07:55→23:04)
[2016-10-20] MEDS: PANTOPRAZOLE SODIUM 40 MG VIAL IV SCH (07:55)
[2016-10-20] MEDS: DOCUSATE SODIUM 50 MG/SENNA 8.6 MG TAB PO SCH ×2 (07:56→23:02)
[2016-10-20] MEDS ORDERED: TIOTROPIUM BROMIDE 18 MCG INH INH SCH (09:00)
[2016-10-20] MEDS: BUDESONIDE-FORMOTEROL 160/4.5 MCG INHALER INH SCH ×2 (11:12→23:04)
--- NOTE | 2016-10-20 11:59 | PD.TRANSFR ---
Transfer Summary Admission Date Oct 19, 2016 at 16:48 Transfer Date: Oct 20, 2016 Admitting Diagnosis respiratory distress, hypoxia, respiratory acidosis Diagnoses: (1) Acute exacerbation of chronic obstructive pulmonary disease (COPD) Diagnosis: Principal (2) Atypical pneumonia Diagnosis: Principal (3) Chronic respiratory failure with hypoxia Diagnosis: Principal (4) Hypertension Diagnosis: Principal (5) CAD (coronary artery disease) Diagnosis: Principal (6) Vertical strabismus, left eye Diagnosis: Principal (7) Osteoarthritis Diagnosis: Principal (8) History of myocardial infarction Diagnosis: Principal Significant Findings Please see orders Transfer Summary/Subjective Please see note Objective Vital Signs Date Time Temp Pulse Resp B/P Pulse Ox O2 Delivery O2 Flow Rate FiO2 10/20/16 10:00 77 10/20/16 08:00 98.3 22 130/60 95 10/20/16 08:00 Nasal Cannula 4.00 10/19/16 19:30 40 Intake and Output 10/19/16 10/19/16 10/20/16 08:00 16:00 00:00 Intake Total 736 ml Output Total 100 ml Balance 636 ml Result Diagram: 10/20/16 0452 10/20/16 0452 Other Results Laboratory Tests Test 10/19/16 10/19/16 10/19/16 14:10 15:39 17:02 Blood Gas Puncture Site RT RADIAL RT RADIAL RT RADIAL Blood Gas Patient Temperature 98.6 98.6 98.6 Blood Gas HCO3 46 mmol/L 46 mmol/L 48 mmol/L (22-26) (22-26) (22-26) Blood Gas Base Excess 18.4 mmol/L 18.6 mmol/L 20.6 mmol/L (-2-2) (-2-2) (-2-2) Blood Gas Oxygen Saturation 93 % (90-100) 87 % (90-100) 94 % (90-100) Arterial Blood pH 7.28 7.30 7.32 (7.380-7.420) (7.380-7.420) (7.380-7.420) Arterial Blood Partial 101 mmHg 96 mmHg (38-42) 96 mmHg (38-42) Pressure CO2 (38-42) Arterial Blood Partial 85 mmHG 62 mmHG 87 mmHG Pressure O2 (61-120) (61-120) (61-120) Arterial Blood Oxygen Content 14.0 Vol % 12.3 Vol % 14.3 Vol % (12.0-20.0) (12.0-20.0) (12.0-20.0) Arterial Blood 2.0 % (0-4) 2.0 % (0-4) 1.9 % (0-4) Carboxyhemoglobin Arterial Blood Methemoglobin 0.6 % (0-2) 0.5 % (0-2) 0.6 % (0-2) Blood Gas Hemoglobin 10.6 G/DL 9.9 G/DL 10.7 G/DL (12.0-16.0) (12.0-16.0) (12.0-16.0) Oxygen Delivery Device MASK BiPAP BiPAP Blood Gas Liter Flow 8 L/M Blood Gas Ventilator Setting Blood Gas Inspired Oxygen 50 % 75 % Imaging Last Impressions Chest X-Ray 10/19/16 1413 Signed Impressions: Service Date/Time: October 14:34 - CONCLUSION: COPD with underlying pulmonary congestion, basilar airspace disease and bilateral pleural effusions. Misbah Anand MD Lower Extremity Ultrasound 10/19/16 0000 Signed Impressions: Service Date/Time: October 18:51 - CONCLUSION: No DVT of either lower extremity. Negro Rodrigez MD Objective Remarks GENERAL: 66-year-old female, resting in bed on nasal cannula in no acute distress SKIN: Warm and dry. No rash HEAD: Atraumatic. Normocephalic. EYES: Pupils equal and round about 2-3 mm bilaterally and reactive. No scleral icterus. No injection or drainage. ENT: No nasal bleeding or discharge. Mucous membranes pink and moist. Oropharynx without thrush NECK: Trachea midline. No JVD. CARDIOVASCULAR: Regular rate and rhythm. S1, S2. No S4. Without murmur RESPIRATORY: Few crackles appreciated in the bases bilaterally. Positive end expiratory wheeze. GASTROINTESTINAL: Abdomen soft, non-tender, scaphoid. Hypoactive bowel sounds. MUSCULOSKELETAL: Extremities trace nonpitting lower extremity edema. Negative Homans sign. No obvious deformities. NEUROLOGICAL: Awake and alert. No obvious cranial nerve deficits. Motor grossly within normal limits. Five out of 5 muscle strength in the arms and legs. Normal speech. PSYCHIATRIC: Appropriate mood and affect; insight and judgment normal. A/P Assessment and Plan Neuro/Psych: Acetaminophen for fever [place]/morphine for pain management CV: Coronary artery disease Hypertension Continue metoprolol 50 mill grams by mouth twice a day for essential hypertension 2-D echocardiogram ordered. Results pending Troponin less than 0.02 EKG reveals no signs of acute ST elevation. There is left axis deviation/mild LVH appreciated Resp Acute on chronic respiratory failure History of obstructive lung disease. No smoking history. Alpha-1 anti-trypsin workup negative Currently on nasal cannula to maintain saturations greater than equal to 92% Wean FiO2 to keep saturations around [address] Knapp/pulmonology Bronchodilator therapy every 6 hours and albuterol every 2 hours when necessary dyspnea Continue Symbicort 160/4.5 2 puffs twice a day Continue Spiriva 18 g inhalation daily Follow-up CT chest AM. 1 dose of Diamox due to significant alkalosis GI: Nausea/vomiting LFT/lipase negative Currently nothing by mouth. Will initiate diet Protonix for GI prophylaxis Alyssa-Colace twice a day for bowel regimen : Coffman catheter if indicated for accurate I's and O's in a critically ill patient Endo: Sliding-scale insulin with Accu-Cheks to maintain euglycemia/low regimen Renal: Creatinine currently within normal limits Accurate I's and O's Monitor urine output closely Heme: Normocytic anemia Thrombocytopenia Likely partially dilutional. We'll recheck CBC in AM. Monitor trends ID: Day 2 cefepime/Zithromax and vancomycin for community-acquired pneumonia/ICU per [place] protocol Previously on ciprofloxacin and Terramycin aerosols twice a day Blood cultures 2, urine Legionella pneumococcal/influenza and sputum all pending Previously on tobramycin aerosols and ciprofloxacin MSK: PT to evaluate and treat FEN: Replace electrolytes as clinically indicated Previous on scheduled sodium chloride 2 g daily Access - Peripheral IV. Central line if indicated Prophylaxis - GI - Protonix - DVT - SCD/Lovenox subcutaneous Critical Care: The total care time was 35 minutes. Time to perform other separately billable procedures was not included in the critical care time. Level II Han Alvarez MD Oct 20, 2016 11:58
--- NOTE | 2016-10-20 13:07 | MB ---
cc: ANDREI LEYVA DATE OF CONSULTATION 10/20/2016 REASON FOR CONSULTATION COPD and respiratory distress. HISTORY OF PRESENT ILLNESS This 66-year-old white female with a prior history of COPD on home O2 was brought with a history of progressive dyspnea, cough and congestion over the past three days. The patient recently was seen by Dr. Knapp and was doing quite well about two weeks ago, but over the past five days, she started to have increasing chest congestion, wheezing and cough and was brought to the emergency room for evaluation. The patient's chest x-ray was done which showed bibasilar infiltrates. She was hypoxic and the blood gases demonstrated a pCO2 of 101, CO2 of 85 on a mask oxygen. The patient was subsequently placed on BiPap and blood gases did improve with the pCO2 dropping to 96. She was then started on IV steroids, antibiotics and bronchodilators with a nebulizer and now she is on a nasal cannula at three liters and doing much better. Denies chest pain, chest x-ray showed basilar infiltrates and the ultrasound of the legs was negative for clots. CT scan is pending. PAST HISTORY The past history includes a history of: 1. Coronary artery disease and previous myocardial infarct 2. History of COPD and oxygen dependency 3. History of osteoarthritis 4. History of strabismus 5. Prior history of hypertension 6. A previous myocardial infarct. 7. She had a tubal ligation and D&C in the past. MEDICATION LIST 1. Mucinex one b.i.d. 2. Cipro 500 mg b.i.d. 3. Aspirin one daily. 4. Symbicort 160 x 12.5 two puffs b.i.d. 5. Tobramycin nebs 300 mg t.i.d. 6. Spiriva one capsule a day. FAMILY HISTORY Father had a history of prostate cancer. Mother with brain cancer. HABITS The patient does not smoke. No history of significant alcohol. REVIEW OF SYSTEMS The patient is orthopneic. She has lost weight. She has cough with expectoration. She has epigastric distress and reflux. Denies any fevers or chills. She does have mild ankle swelling and no skin rash. Other system review as per present complaint. ALLERGIES BACTRIM PHYSICAL EXAMINATION This thinly built middle-aged white female is pale in no acute distress. VITAL SIGNS: Blood pressure 130/68, pulse 88, respirations 20, temperature 98. HEENT: Head normocephalic. Pupils are reactive. Tongue is moist. Throat was clear. Nasal mucosa injected. NECK: Supple without venous distension or thyromegaly or lymphadenopathy. CHEST: Decreased excursions with occasional basilar crackles with expiratory wheezes bilaterally, prolonged expiration. HEART: The heart sounds irregular S1-S2. No murmur S3 gallop. ABDOMEN: Soft and protuberant with mild epigastric tenderness. No organomegaly. The bowel sounds are active. EXTREMITIES: Varicosities and minimal edema of the ankles. Peripheral pulses are felt. NEUROLOGIC: Nonfocal deficits noted. RECTAL: Exam is deferred. IMPRESSION 1. Acute on chronic respiratory failure 2. Severe COPD and chronic bronchitis 3. History of coronary artery disease. 4. Hypertension 5. Probable basilar pneumonia PLAN The patient been placed on cefepime 2 grams IV b.i.d. and continue with Zithromax 250 mg IV daily, as well as Vancomycin one gram IV daily, nebulized DuoNeb solution added q6h, Symbicort continued at 160 x 4.5 two puffs twice a day, Solu-Medrol 40 mg IV q6h, BiPap at night at 5/5 and nasal cannula during the day at [address] scan to be done today. I will follow the case with you, Dr. Alvarez. Thank you for this consultation. MD DEWAYNE Adler/RAFAEL /12:25 PM /12:59 PM
[2016-10-20] MEDS: RESP: ALBUTEROL 2.5 MG/IPRATROPIUM 0.5 MG NEB (SCH) NEB ×2 (15:22→20:08)
--- NOTE | 2016-10-20 17:16 | ECHRPT ---
Indication: HEART FAILURE CONCLUSIONS Normal left ventricular size. Wall thickness is normal. The left ventricular systolic function is hyperdynamic with an estimated ejection fraction in the ra nge of 65- 70%. No regional wall motion abnormalities are present. Doppler parameters are consistent with impaired left ventricular relaxtion (grade 1 diastolic dysfun ction). Large left and right pleural effusions. Mild prolapse of the anterior leaflet of the mitral valve. Flattening of the posterior leaflet of the mitral valve. BP: 154 / 67 HR: 94 Rhythm: Sinus MEASUREMENTS (Male / Female) Normal Values Technical Quality:Fair 2D ECHO LV Diastolic Diameter PLAX 4.5 cm 4.2 - 5.9 / 3.9 - 5.3 cm LV Systolic Diameter PLAX 2.8 cm IVS Diastolic Thickness 0.9 cm 0.6 - 1.0 / 0.6 - 0.9 cm LVPW Diastolic Thickness 0.9 cm 0.6 - 1.0 / 0.6 - 0.9 cm LV Relative Wall Thickness 0.4 LVOT Diameter 1.8 cm Aortic Root Diameter 2.2 cm LA Systolic Diameter LX 2.1 cm 3.0 - 4.0 / 2.7 - 3.8 cm M-MODE AV Cusp Separation MM 2.1 cm DOPPLER AV Peak Velocity 163.0 cm/s AV Peak Gradient 10.6 mmHg AV Mean Gradient 6.0 mmHg AV Velocity Time Integral 30.6 cm LVOT Peak Velocity 98.5 cm/s LVOT Peak Gradient 3.9 mmHg LVOT Velocity Time Integral 18.1 cm LVOT Cardiac Index 3171.3 cm/minm AV Area Cont Eq vti 1.5 cm AV Area Cont Eq pk 1.5 cm Mitral E Point Velocity 72.1 cm/s Mitral A Point Velocity 89.3 cm/s Mitral E to A Ratio 0.8 LV E' Lateral Velocity 11.8 cm/s Mitral E to LV E' Lateral Ratio 6.1 LV E' Septal Velocity 6.1 cm/s Mitral E to LV E' Septal Ratio 11.7 TR Peak Velocity 372.0 cm/s TR Peak Gradient 55.4 mmHg PV Peak Velocity 79.0 cm/s PV Peak Gradient 2.5 mmHg FINDINGS LEFT VENTRICLE Normal left ventricular size. Wall thickness is normal. The left ventricular systolic function is hyperdynamic with an estimated ejection fraction in the ra nge of 65- 70%. No regional wall motion abnormalities are present. Doppler parameters are consistent with impaired left ventricular relaxtion (grade 1 diastolic dysfun ction). RIGHT VENTRICLE Normal right ventricular size and systolic function. LEFT ATRIUM The left atrial size is normal. RIGHT ATRIUM The right atrial size is mildly dilated. ATRIAL SEPTUM Normal atrial septal thickness without atrial level shunting by limited color doppler interrogation. AORTA Mildly dilated proximal ascending aorta. MITRAL VALVE Mild prolapse of the anterior leaflet of the mitral valve. Flattening of the posterior leaflet of the mitral valve. AORTIC VALVE Aortic valve sclerosis is present. No aortic valve regurgitation. No aortic valve stenosis. TRICUSPID VALVE Structurally normal tricuspid valve. There is trace tricuspid valve regurgitation. Normal estimated pulmonary pressures. PULMONARY VALVE Normal pulmonary valve without stenosis or insufficiency PERICARDIUM No pericardial effusion. OTHER FINDINGS Large left and right pleural effusions. Siddhartha Zamorano MD, FACC, [facility] (Electronically Signed) Final Date:20 October 2016 17:15
--- NOTE | 2016-10-20 17:40 | RADRPT ---
EXAM DATE/TIME: 10/20/2016 16:55 [facility] COMPARISON: CT THORAX W CONTRAST, August 26, 2015, 14:35. INDICATIONS : Evaluate for shortness of breath. RADIATION DOSE: 3.28 CTDIvol (mGy) MEDICAL HISTORY : Cardiovascular disease. Hypertension. Chronic obstructive pulmonary disease. Asthma, Emphysema. SURGICAL HISTORY : None. ENCOUNTER: Initial ACUITY: 1 day PAIN SCALE: 0/10 LOCATION: Bilateral chest TECHNIQUE: Volumetric scanning of the chest was performed. Using automated exposure control and adjustment of t he mA and/or kV according to patient size, radiation dose was kept as low as reasonably achievable to obtain optimal diagnostic quality images. FINDINGS: Moderate sized bilateral pleural effusions are noted. Bibasilar compressive atelectasis and/or infil trates are noted. Ground-glass densities are noted within both lungs. The heart is enlarged. The f indings raise the possibility of pulmonary vascular congestion with pleural effusions. Clinical reza elation is recommended. There is evidence of pretracheal, AP window and subcarinal mediastinal lympha denopathy which is unchanged compared to 08/26/15 and is nonspecific. Calcified granuloma is noted wi thin the left lower lobe. No new pulmonary nodule or mass is noted. Degenerative changes and scolio sis of the thoracic spine are noted. CONCLUSION: 1. Moderate-sized bilateral pleural effusions with adjacent compressive atelectasis and/or infiltrate s. Clinical correlation is recommended. 2. Diffuse ground-glass densities within the aerated portions of both lungs raising the possibility o f pulmonary vascular congestion. 3. Cardiomegaly. 4. Stable mediastinal lymphadenopathy which is nonspecific. 5. Degenerative changes and scoliosis of the thoracic spine. 6. Stable calcified granuloma within the left lower lobe. Shaw Mancini MD on October 20, 2016 at 17:22 Board Certified Radiologist. This report was verified electronically.
[2016-10-20] MEDS: methylPREDNISolone SOD SUCC 40 MG/1 ML VIAL IV SCH ×2 (17:42→23:03)
--- NOTE | 2016-10-20 21:08 | HHI.PR ---
Addendum to Inpatient Note Addendum Reason: Additional Documentation Additional Information Subjective Residents paged regarding patient with respiratory distress and O2 saturation of 55% on 4L NC. O2 saturation had been in the low 90s on 4L until patient exerted herself to position on a bed root. At that time she developed severe SOB. She said she had mild chest pain which resolved quickly (i.e., by time of bedside evaluation). No leg pain or abdominal pain. Objective Vitals: O2 99% on non-rebreather mask. RR normal. Gen: Thin elderly white woman sitting up in bed with O2 mask in place appearing tired but in no acute distress Lungs: CTAB. No respiratory distress. No use of accessory muscles. Heart: NRRR, normal S1/S2, no MRG MSK: Extremities without cyanosis or edema Neuro: Awake and alert. A&P 66 year old female with PMH of COPD, coronary artery disease with [place] 10 years ago, and HTN admitted for COPD exacerbation now with hypoxia. - Primary team notified and en route to evaluate patient - Foreign Languages Department Chair Dr. Knpap to evaluate patient in morning - EKG to assess for ST/T wave changes - Oxygen titrated to keep SpO2 89-92 (Respiratory to administer BiPAP) - Continue monitoring on floor (currently too stable for ICU) sheriew Dylan Lemus MD R1 Oct 20, 2016 21:08
--- NOTE | 2016-10-20 22:03 | RADRPT ---
EXAM DATE/TIME: 10/20/2016 21:42 [facility] COMPARISON: CHEST SINGLE AP, October 19, 2016, 14:34. INDICATIONS : Evaluate lung status. MEDICAL HISTORY : Myocardial infarction. Emphysema. COPD. Asthma. SURGICAL HISTORY : None. ENCOUNTER: Initial ACUITY: 1 day PAIN SCORE: 0/10 LOCATION: Bilateral chest FINDINGS: Single AP view of the chest. Bilateral pleural effusions unchanged. Increased medial left lower lobe atelectasis versus consolidation. New mild hazy opacity in the right upper lung. No evidence of pneum othorax. CONCLUSION: Persistent bilateral pleural effusions. Increased left lower lobe atelectasis versus consolidation an d new mild right upper lung hazy opacity. Ajit Luna MD on October 20, 2016 at 22:00 Board Certified Radiologist. This report was verified electronically.
[2016-10-20] MEDS ORDERED: LORazepam 2 MG/ML VIAL IV PUSH ONE (22:15)
--- NOTE | 2016-10-20 22:49 | EKG ---
Date Performed: 10/19/2016 Time Performed: 14:25:30 PTAGE: 66 years EKG: Sinus rhythm LEFT ATRIAL ENLARGEMENT ABNORMAL ECG PREVIOUS TRACING : 10/19/2015 15.45 DOCTOR: Jamie Peterson Interpretating Date/Time 10/20/2016 22:47:07
[2016-10-20] MEDS: ENOXAPARIN SODIUM 40 MG/0.4 ML SYRINGE SQ SCH (23:01)
[2016-10-20] MEDS: AZITHROMYCIN INJ 500 MG in SODIUM CHLOR 0.9% 250 ML INJ 250 ML IV SCH (23:02)
[2016-10-21] VITALS (16 sets, daily range): BP systolic 134–150; BP diastolic 61–102; PULSE 72–97; RESP 20–30; TEMP 97.3–99.2; O2SAT 92–100
[2016-10-21] MEDS: CHLORHEXIDINE GLUCONATE 2 % 1 PACK (2 CLOTHS) TOP SCH (03:57)
[2016-10-21] MEDS: CEFEPIME INJ 2,000 MG in SODIUM CHLORIDE 0.9% INJ 100 ML IV SCH ×3 (04:03→17:33)
[2016-10-21] MEDS: RESP: ALBUTEROL 2.5 MG/IPRATROPIUM 0.5 MG NEB (SCH) NEB ×4 (04:55→21:41)
[2016-10-21] MEDS: SODIUM CHLOR 0.9% 1000 ML INJ 1,000 ML IV SCH (05:37)
[2016-10-21] MEDS: methylPREDNISolone SOD SUCC 40 MG/1 ML VIAL IV SCH ×3 (05:38→17:33)
[2016-10-21] MEDS ORDERED: PHARMACY ORDERED LAB ONE (07:45)
[2016-10-21 08:00] LABS: HEMATOCRIT 28.6 % (35.0-46.0); MEAN CELL VOLUME 88.3 FL (80.0-100.0); MEAN CORPUSCULAR HEMOGLOBIN 28.1 PG (27.0-34.0); MEAN CORPUSCULAR HGB CONC 31.8 % (32.0-36.0); PLATELET COUNT 102 TH/MM3 (150-450); RED BLOOD COUNT 3.24 MIL/MM3 (4.00-5.30); RED CELL DISTRIBUTION WIDTH 15.9 % (11.6-17.2); REVIEW FLAG FINAL; WHITE BLOOD COUNT 6.8 TH/MM3 (4.0-11.0)
[2016-10-21 08:54] LABS: BICARBONATE 42.7 MEQ/L (21.0-32.0); POTASSIUM 4.5 MEQ/L (3.5-5.1)
[2016-10-21 09:13] LABS: VANCOMYCIN TROUGH 4.2 MCG/ML (5.0-10.0)
--- NOTE | 2016-10-21 09:36 | HHI.PR ---
Subjective Remarks The patient recently was going to the commode and per her pulse oximeter was saturating in the 40s. Currently saturating in the high 90s. Family at the bedside and their questions were answered. Discussed with nursing at the bedside. Objective Vitals Vital Signs Date Time Temp Pulse Resp B/P Pulse Ox O2 Delivery O2 Flow Rate FiO2 10/21/16 04:57 93 BiPAP 40 10/21/16 04:10 98 50 10/21/16 04:00 98.2 72 20 137/61 98 10/21/16 00:00 97.9 91 22 134/63 98 10/20/16 23:45 90 50 10/20/16 21:15 Bi-Pap 10/20/16 20:50 92 50 10/20/16 20:45 Non-Rebreather 10/20/16 20:25 93 40 10/20/16 20:25 90 10/20/16 20:08 93 Nasal Cannula 4.00 10/20/16 20:00 Nasal Cannula 4.00 Humidified 10/20/16 20:00 92 10/20/16 20:00 98.5 88 20 141/69 91 10/20/16 16:21 90 Nasal Cannula 4.00 10/20/16 15:44 98.1 89 20 133/61 90 10/20/16 14:00 89 10/20/16 12:00 98.6 86 24 123/68 95 10/20/16 12:00 86 10/20/16 12:00 95 Nasal Cannula 4.00 10/20/16 10:00 77 I/O 10/20/16 10/20/16 10/20/16 10/21/16 10/21/16 10/21/16 07:00 15:00 23:00 07:00 15:00 23:00 Intake Total 630 ml 1619 ml 340 ml 1227 ml Output Total 250 ml Balance 380 ml 1619 ml 340 ml 1227 ml Intake Oral 600 ml 340 ml IV Total 630 ml 1019 ml 1227 ml Output Urine Total 250 ml # Voids 2 2 Result Diagram: 10/21/16 0704 10/21/16 0704 Imaging Last Impressions Chest X-Ray 10/20/16 0000 Signed Impressions: Service Date/Time: Thursday, October 20, 2016 21:42 - CONCLUSION: Persistent bilateral pleural effusions. Increased left lower lobe atelectasis versus consolidation and new mild right upper lung hazy opacity. Ajit Luna MD Chest CT 10/20/16 0000 Signed Impressions: Service Date/Time: Thursday, October 20, 2016 16:55 - CONCLUSION: 1. Moderate- sized bilateral pleural effusions with adjacent compressive atelectasis and/or infiltrates. Clinical correlation is recommended. 2. Diffuse ground-glass densities within the aerated portions of both lungs raising the possibility of pulmonary vascular congestion. 3. Cardiomegaly. 4. Stable mediastinal lymphadenopathy which is nonspecific. 5. Degenerative changes and scoliosis of the thoracic spine. 6. Stable calcified granuloma within the left lower lobe. Shaw Mancini MD Lower Extremity Ultrasound 10/19/16 0000 Signed Impressions: Service Date/Time: October 18:51 - CONCLUSION: No DVT of either lower extremity. Negro Rodrigez MD Objective Remarks GENERAL: Resting in bed, on NRB. SKIN: Warm and dry. No rash. HEAD: Atraumatic. Normocephalic. EYES: Pupils equal and round about 2-3 mm bilaterally and reactive. No scleral icterus. No injection or drainage. ENT: No nasal bleeding or discharge. Mucous membranes pink and moist. Oropharynx without thrush NECK: Trachea midline. No JVD. CARDIOVASCULAR: Tachycardic. S1, S2. No S4. Without murmur. RESPIRATORY: Diffuse rhonchi. GASTROINTESTINAL: Abdomen soft, non-tender, scaphoid. MUSCULOSKELETAL: Extremities trace nonpitting lower extremity edema. No obvious deformities. NEUROLOGICAL: Awake and alert. No obvious cranial nerve deficits. Motor grossly within normal limits. Five out of 5 muscle strength in the arms and legs. Normal speech. PSYCHIATRIC: Appropriate mood and affect; insight and judgment normal. Medications and IVs Current Medications Medications (Trade) Dose Ordered Sig/Ramon Route Start Time Stop Time Status Last Admin (NS Flush) 2 ml UNSCH PRN IVF 10/19/16 14:15 (Ecotrin Ec) 81 mg DAILY PO 10/20/16 09:00 10/20/16 07:55 (Symbicort 160-4.5 Inh) 2 puff Q12HR INH 10/19/16 21:00 10/20/16 23:04 (Lopressor) 50 mg BID PO 10/19/16 21:00 6/16/17 23:02 (Spiriva Inh) 18 mcg DAILY INH 10/20/16 09:00 10/20/16 11:12 Multivitamins 1 tab 1 tab DAILY PO 10/20/16 09:00 10/20/16 07:55 (NS 1000 ml Inj) 1,000 ml @ 84 mls/hr [id number] IV 10/19/16 17:38 10/21/16 05:37 (NS Flush) 2 ml UNSCH PRN IV FLUSH 10/19/16 17:45 (NS Flush) 2 ml BID IV FLUSH 10/19/16 21:00 10/20/16 23:04 (Tylenol) 650 mg Q6H PRN PO 10/19/16 17:45 (Aurora 5-325 Mg) 1 tab Q4H PRN PO 10/19/16 17:45 (Morphine Inj) 2 mg Q2H PRN IV 10/19/16 17:45 (Protonix Inj) 40 mg DAILY IV 10/20/16 09:00 10/20/16 07:55 (Tears Naturale Opth Soln) 1 drop TID EACH EYE 10/19/16 18:00 10/20/16 17:42 (Zofran Inj) 4 mg Q6H PRN IV 10/19/16 17:45 (Lovenox Inj) 40 mg Q24H SQ 10/19/16 21:00 10/20/16 23:01 Miscellaneous Information 1 Q361D XX 10/19/16 17:45 10/19/16 17:45 (Chlorhexidine 2% Cloth) 3 pack Taper DAILY@04 TOP 10/20/16 04:00 10/16/17 03:59 10/19/16 21:33 (Chlorhexidine 2% Cloth) 3 pack UNSCH PRN TOP 10/19/16 17:45 (Alyssa-Colace) 1 tab BID PO 10/19/16 21:00 10/20/16 23:02 (Milk Of Magnesia Liq) 30 ml Q12H PRN PO 10/19/16 17:45 (Senokot) 17.2 mg Q12H PRN PO 10/19/16 17:45 (Dulcolax Supp) 10 mg DAILY PRN RECTAL 10/19/16 17:45 Lactulose 30 ml 30 ml DAILY PRN PO 10/19/16 17:45 Cefepime HCl 2000 mg/Sodium Chloride 100 ml @ 200 mls/hr Q8H IV 10/19/16 19:00 10/21/16 04:03 Azithromycin 500 mg/Sodium Chloride 250 ml @ 250 mls/hr Q24H IV 10/19/16 20:00 10/20/16 23:02 Pharmacy Profile Note 0 ml @ 0 mls/hr UNSCH OTHER 10/19/16 17:45 (Vancomycin Inj/ NS 250 ml Inj) 257.5 ml @ 250 mls/hr Q12H IV 10/19/16 20:00 10/21/16 11:01 10/20/16 23:04 (Vitamin C) 250 mg DAILY PO 10/20/16 09:00 10/20/16 07:55 (Pill Splitter) 1 ea UNSCH PRN OTHER 10/20/16 07:00 Methylprednisolone Sodium Succinate 40 mg 40 mg Q6HR IV 10/20/16 18:00 10/21/16 05:38 (Vancomycin Inj/ NS 250 ml Inj) 257.5 ml @ 250 mls/hr Q8H IV 10/21/16 18:00 Miscellaneous Information SPECIFIC LAB TO BE DRAWN:VANCO TROUGH DATE TO... ONCE ONCE .XX 10/22/16 09:45 10/22/16 09:46 (Lasix Inj) 40 mg BID@,18 IV PUSH 10/21/16 10:00 UNV A/P Problem List: (1) Acute exacerbation of chronic obstructive pulmonary disease (COPD) ICD Code: J44.1 Status: Acute (2) Atypical pneumonia ICD Code: J18.9 Status: Acute (3) Chronic respiratory failure with hypoxia ICD Code: J96.11 Status: Chronic (4) Hypertension ICD Code: I10 Status: Acute (5) CAD (coronary artery disease) ICD Code: I25.10 Status: Acute (6) Vertical strabismus, left eye ICD Code: H50.22 Status: Acute (7) Osteoarthritis ICD Code: M19.90 Status: Acute (8) History of myocardial infarction ICD Code: I25.2 Status: Acute Assessment and Plan Acute on chronic hypercarbic respiratory failure/ COPD History of obstructive lung disease. No smoking history. Alpha-1 anti-trypsin workup negative. Pulmonology consult appreciated. CT chest showed: Moderate- sized bilateral pleural effusions with adjacent compressive atelectasis and/or infiltrates; Diffuse ground-glass densities within the aerated portions of both lungs raising the possibility of pulmonary vascular congestion; Stable mediastinal lymphadenopathy which is nonspecific; Stable calcified granuloma within the left lower lobe. - oxygen as needed to keep saturations around 90%. - follow up with pulmonology. - Bronchodilator therapy every 6 hours and albuterol every 2 hours when necessary. Hold Spiriva. - Continue Symbicort 160/4.5 2 puffs twice a day. - transfer to ICU for BiPAP. - PT. Acute grade 1 diastolic CHF/ Coronary artery disease Echo with normal EF, grade 1 diastolic CHF. EKG reveals no signs of acute ST elevation; There is left axis deviation/mild LVH appreciated. Trops flat. - Continue metoprolol 50 mill grams by mouth twice a day. - initiate diuresis with Lasix 40 mg IV BID. - d/c IVFs. - consult cardiology. - strict Is ans Os. Normocytic anemia/ Thrombocytopenia Likely partially dilutional. - Monitor trends. CAP Previously on ciprofloxacin and Terramycin aerosols twice a day. Sputum culture with normal thalia. - continue cefepime/Zithromax and vancomycin for community-acquired pneumonia. - follow blood cultures. Hypernatremia The pt was on NS. - d/c NS. - monitor BMP while diuresing. PPx: SCD/Lovenox subcutaneous Discharge Planning Transfer back to ICU. Reconsult carpenter mine if does not improve. Problem Qualifiers (1) Hypertension: Qualified Code: I10 - Essential hypertension (2) CAD (coronary artery disease): Qualified Code: I25.10 - Coronary artery disease involving [place] heart without angina pectoris, unspecified vessel or lesion type (3) Osteoarthritis: Qualified Code: M19.90 - Osteoarthritis, unspecified osteoarthritis type, unspecified site Conor Conte DO Oct 21, 2016 09:36
[2016-10-21] MEDS: VANCOMYCIN INJ 750 MG in SODIUM CHLOR 0.9% 250 ML INJ 250 ML IV SCH ×2 (10:08→17:05)
[2016-10-21] MEDS: PANTOPRAZOLE SODIUM 40 MG VIAL IV SCH (10:09)
[2016-10-21] MEDS: ASCORBIC ACID 500 MG TAB PO SCH (10:09)
[2016-10-21] MEDS: ASPIRIN EC 81 MG TABEC PO SCH (10:09)
[2016-10-21] MEDS: MULTIVITAMIN TAB PO SCH (10:09)
[2016-10-21] MEDS: ARTIFICIAL TEARS OPTH SOLN 15 ML BTL EACH EYE SCH ×3 (10:09→17:05)
[2016-10-21] MEDS: BUDESONIDE-FORMOTEROL 160/4.5 MCG INHALER INH SCH ×2 (10:09→20:58)
[2016-10-21] MEDS: METOPROLOL TARTRATE 50 MG TAB PO SCH (10:09)
[2016-10-21] MEDS: SODIUM CHLORIDE 0.9% FLUSH 10 ML FLUSH IV FLUSH SCH ×2 (10:10→21:00)
[2016-10-21] MEDS: DOCUSATE SODIUM 50 MG/SENNA 8.6 MG TAB PO SCH ×2 (10:12→20:58)
[2016-10-21] MEDS: FUROSEMIDE 40 MG/4 ML VIAL IV PUSH SCH ×2 (11:40→17:33)
--- NOTE | 2016-10-21 13:10 | EKG ---
Date Performed: 10/20/2016 Time Performed: 23:23:00 PTAGE: 66 years EKG: Sinus rhythm Possible left atrial abnormality Septal T wave changes are nonspecific Tall T waves - consider acute ischemia or hyperkalemia Borderline ECG PREVIOUS TRACING : 10/19/2016 14.25 Compared to prior tracing no significant change DOCTOR: Sanya Sorto Interpretating Date/Time 10/21/2016 13:08:24
[2016-10-21] MEDS ORDERED: FUROSEMIDE 20 MG/2 ML VIAL IV PUSH SCH (15:00)
--- NOTE | 2016-10-21 15:04 | HHI.PR ---
Subjective Remarks She was sent to 4 th Floor and now back to [facility] for respiratory distress. Alert and on a NRB mask. Objective Vital Signs Date Time Temp Pulse Resp B/P Pulse Ox O2 Delivery O2 Flow Rate FiO2 10/21/16 12:00 81 10/21/16 12:00 97.4 81 26 150/67 100 10/21/16 12:00 96 Non-Rebreather 10/21/16 10:25 97 10/21/16 10:25 Non-Rebreather 10.00 10/21/16 10:11 96 40 10/21/16 08:15 95 Non-Rebreather 10.00 10/21/16 08:00 97.3 84 21 149/76 92 10/21/16 08:00 Nasal Cannula 5.00 10/21/16 04:57 93 BiPAP 40 10/21/16 04:10 98 50 10/21/16 04:00 98.2 72 20 137/61 98 10/21/16 00:00 97.9 91 22 134/63 98 10/20/16 23:45 90 50 10/20/16 21:15 Bi-Pap 10/20/16 20:50 92 50 10/20/16 20:45 Non-Rebreather 10/20/16 20:25 93 40 10/20/16 20:25 90 10/20/16 20:08 93 Nasal Cannula 4.00 10/20/16 20:00 Nasal Cannula 4.00 Humidified 10/20/16 20:00 92 10/20/16 20:00 98.5 88 20 141/69 91 10/20/16 16:21 90 Nasal Cannula 4.00 10/20/16 15:44 98.1 89 20 133/61 90 I/O 10/20/16 10/20/16 10/20/16 10/21/16 10/21/16 10/21/16 07:00 15:00 23:00 07:00 15:00 23:00 Intake Total 630 ml 1619 ml 340 ml 1227 ml 1495 ml Output Total 250 ml 1300 ml Balance 380 ml 1619 ml 340 ml 1227 ml 195 ml Intake Oral 600 ml 340 ml 720 ml IV Total 630 ml 1019 ml 1227 ml 775 ml Output Urine Total 250 ml 1300 ml # Voids 2 2 # Bowel Movements 0 Result Diagram: 10/21/16 0704 10/21/16 0704 Objective Remarks This thinly built middle-aged white female is pale in mild distress. HEENT: Head normocephalic. Pupils are reactive. Tongue is moist. Throat was clear. Nasal mucosa injected. NECK: Supple without venous distension or thyromegaly or lymphadenopathy. CHEST: Decreased excursions with occasional basilar crackles with expiratory wheezes bilaterally, prolonged expiration. HEART: The heart sounds irregular S1-S2. No murmur S3 gallop. ABDOMEN: Soft and protuberant with no tenderness. No organomegaly. The bowel sounds are active. EXTREMITIES: Varicosities and minimal edema of the ankles. Peripheral pulses are felt. NEUROLOGIC: Nonfocal deficits noted. RECTAL: Exam is deferred. Assessment and Plan Assessment and Plan IMPRESSION 1. Acute on chronic respiratory failure 2. Severe COPD and chronic bronchitis 3. History of coronary artery disease. 4. Hypertension 5. Probable basilar pneumonia 6. CHF Plan : 1. Place on a Ventimask at 40 %. 2. Bipap at HS 12/5, FIo2 35 % 3. Nebs qid , duoneb 4. Lasix 20 mg IV daily. 5. Continue antibiotics 6. CXR ,BMP in am Dony Pineda MD Oct 21, 2016 15:04
--- NOTE | 2016-10-21 17:25 | MB ---
cc: DUNCAN NIELSEN MD DATE OF CONSULTATION 10/21/16 REASON FOR CONSULTATION Congestive heart failure HISTORY OF PRESENT ILLNESS Ms. Pinedo is a 66-year-old female who has end-stage COPD on home O2. She has had progressive congestion, wheezing, coughing and presented to the emergency room. Cardiology was requested to evaluate her for CHF given her remote history of myocardial infarction. The patient denies any recent episodes of chest pain. She obviously has had some progressive shortness of breath. PAST MEDICAL HISTORY 1. Chronic obstructive pulmonary disease 2. Hypertension, 3. CAD, 4. Arthritis, 5. Hypertension. MEDICATIONS Current medications per the record. FAMILY HISTORY Noncontributory. ALLERGIES BACTRIM SOCIAL HISTORY The patient does not drink or smoke. REVIEW OF SYSTEMS The patient has had weight loss and does have sputum production. PHYSICAL EXAMINATION VITAL SIGNS: 97, 21, 149/76. GENERAL: An emaciated female who is in mild respiratory distress. ONSET LUNGS: Decreased in the bases. CARDIOVASCULAR: She is mildly tachycardiac. ABDOMEN: Soft. EXTREMITIES: Free from edema. CARDIOLOGY STUDIES Echocardiogram shows an ejection fraction of 65%. There is no significant valvular abnormalities. There is no pericardial effusion. IMAGING STUDIES CT chest - She has moderate sized bilateral pleural effusions. IMPRESSION 1. CHF - the patient's symptoms and presentation is more consistent with a pulmonary etiology to her shortness of breath. There certainly could be a diastolic component, although her blood pressure has been under reasonable control. 2. Hypertension - the patient is on a moderate dose of metoprolol. As her COPD situation is so pronounced, I believe she would likely benefit from weaning and stopping the metoprolol and utilizing calcium channel blockers for her hypertension and any rate control. 3. Pneumonia - this will be managed by critical care medicine and pulmonary. 4. Severe COPD - per pulmonary. Duncan Nielsen M.D. JACE/ /2:30 PM /5:17 PM
[2016-10-21] MEDS: AZITHROMYCIN INJ 500 MG in SODIUM CHLOR 0.9% 250 ML INJ 250 ML IV SCH (19:33)
[2016-10-21] MEDS: ENOXAPARIN SODIUM 40 MG/0.4 ML SYRINGE SQ SCH (20:58)
[2016-10-21] MEDS: LORazepam 2 MG/ML VIAL IV PRN (22:08)
[2016-10-22] VITALS (15 sets, daily range): BP systolic 118–148; BP diastolic 56–69; PULSE 92–117; RESP 18–24; TEMP 97.4–99.7; O2SAT 94–100
[2016-10-22] MEDS: methylPREDNISolone SOD SUCC 40 MG/1 ML VIAL IV SCH ×4 (00:53→16:16)
[2016-10-22] MEDS: VANCOMYCIN INJ 750 MG in SODIUM CHLOR 0.9% 250 ML INJ 250 ML IV SCH ×3 (00:55→16:16)
[2016-10-22] MEDS: RESP: ALBUTEROL 2.5 MG/IPRATROPIUM 0.5 MG NEB (SCH) NEB ×4 (03:35→22:36)
[2016-10-22] MEDS: CEFEPIME INJ 2,000 MG in SODIUM CHLORIDE 0.9% INJ 100 ML IV SCH ×3 (04:09→18:11)
--- NOTE | 2016-10-22 04:45 | RADRPT ---
EXAM DATE/TIME: 10/22/2016 02:51 [place] COMPARISON: CHEST SINGLE AP, October 20, 2016, 21:42. INDICATIONS : Evaluate effusions, shortness of breath. MEDICAL HISTORY : Myocardial infarction. Emphysema. COPD. Asthma. SURGICAL HISTORY : None. ENCOUNTER: Subsequent ACUITY: 2 days PAIN SCORE: 7/10 LOCATION: Bilateral chest FINDINGS: Single AP view of the chest. Bilateral pleural effusions and bilateral pulmonary parenchymal opacity most prominent at the medial lung bases unchanged. No evidence of pneumothorax. CONCLUSION: No significant interval change. Ajit Luna MD on October 22, 2016 at 4:43 Board Certified Radiologist. This report was verified electronically.
[2016-10-22 05:42] LABS: HEMATOCRIT 27.5 % (35.0-46.0); MEAN CELL VOLUME 87.9 FL (80.0-100.0); MEAN CORPUSCULAR HEMOGLOBIN 28.1 PG (27.0-34.0); MEAN CORPUSCULAR HGB CONC 31.9 % (32.0-36.0); PLATELET COUNT 93 TH/MM3 (150-450); RED BLOOD COUNT 3.13 MIL/MM3 (4.00-5.30); RED CELL DISTRIBUTION WIDTH 15.8 % (11.6-17.2); WHITE BLOOD COUNT 5.6 TH/MM3 (4.0-11.0)
[2016-10-22 05:50] LABS: REVIEW FLAG FINAL
[2016-10-22 06:04] LABS: BLOOD UREA NITROGEN 27 MG/DL (7-18); CHLORIDE 97 MEQ/L (98-107); GLOMERULAR FILTRATION RATE 170 ML/MIN (>89); MAGNESIUM 2.3 MG/DL (1.5-2.5); POTASSIUM 4.1 MEQ/L (3.5-5.1); SODIUM (NA) 145 MEQ/L (136-145)
[2016-10-22 06:20] LABS: ANION GAP 3 MEQ/L (5-15); BICARBONATE GREATER THAN 45.0 MEQ/L (21.0-32.0)
[2016-10-22] MEDS: DILTIAZEM-CD 180 MG CAP ER PO SCH (08:32)
[2016-10-22] MEDS: PANTOPRAZOLE SODIUM 40 MG VIAL IV SCH (08:32)
[2016-10-22] MEDS: ASCORBIC ACID 500 MG TAB PO SCH (08:32)
[2016-10-22] MEDS: MULTIVITAMIN TAB PO SCH (08:33)
[2016-10-22] MEDS: ASPIRIN EC 81 MG TABEC PO SCH (08:33)
[2016-10-22] MEDS: SODIUM CHLORIDE 0.9% FLUSH 10 ML FLUSH IV FLUSH SCH ×2 (08:33→20:59)
[2016-10-22] MEDS: DOCUSATE SODIUM 50 MG/SENNA 8.6 MG TAB PO SCH ×2 (08:33→20:58)
[2016-10-22] MEDS: POTASSIUM CHLORIDE 20 MEQ CONTROLLED RELEASE TAB PO SCH (08:33)
[2016-10-22] MEDS: ARTIFICIAL TEARS OPTH SOLN 15 ML BTL EACH EYE SCH ×3 (08:34→16:16)
[2016-10-22] MEDS: FUROSEMIDE 40 MG/4 ML VIAL IV PUSH SCH (08:34)
[2016-10-22] MEDS: BUDESONIDE-FORMOTEROL 160/4.5 MCG INHALER INH SCH ×2 (08:34→20:59)
[2016-10-22] MEDS ORDERED: PHARMACY ORDERED LAB ONE (09:45)
--- NOTE | 2016-10-22 12:07 | PD.CARD.PN ---
Subjective Subjective Remarks SHOB Objective Medications Current Medications Medications (Trade) Dose Ordered Sig/Ramon Route Start Time Stop Time Status Last Admin (Ecotrin Ec) 81 mg DAILY PO 10/20/16 09:00 10/22/16 08:33 (Symbicort 160-4.5 Inh) 2 puff Q12HR INH 10/19/16 21:00 10/22/16 08:34 (Theragran) 1 tab DAILY PO 10/20/16 09:00 10/22/16 08:33 (NS Flush) 2 ml UNSCH PRN IV FLUSH 10/19/16 17:45 (NS Flush) 2 ml BID IV FLUSH 10/19/16 21:00 10/22/16 08:33 (Tylenol) 650 mg Q6H PRN PO 10/19/16 17:45 ([place]iboll 5-325 Mg) 1 tab Q4H PRN PO 10/19/16 17:45 (Morphine Inj) 2 mg Q2H PRN IV 10/19/16 17:45 (Protonix Inj) 40 mg DAILY IV 10/20/16 09:00 10/22/16 08:32 (Tears Naturale Opth Soln) 1 drop TID EACH EYE 10/19/16 18:00 10/22/16 11:37 (Zofran Inj) 4 mg Q6H PRN IV 10/19/16 17:45 (Lovenox Inj) 40 mg Q24H SQ 10/19/16 21:00 10/21/16 20:58 Miscellaneous Information 1 Q361D XX 10/19/16 17:45 10/19/16 17:45 (Alyssa-Colace) 1 tab BID PO 10/19/16 21:00 10/22/16 08:33 (Milk Of Magnesia Liq) 30 ml Q12H PRN PO 10/19/16 17:45 10/21/16 11:40 (Senokot) 17.2 mg Q12H PRN PO 10/19/16 17:45 (Dulcolax Supp) 10 mg DAILY PRN RECTAL 10/19/16 17:45 Lactulose 30 ml 30 ml DAILY PRN PO 10/19/16 17:45 Cefepime HCl 2000 mg/Sodium Chloride 100 ml @ 200 mls/hr Q8H IV 10/19/16 19:00 10/22/16 11:37 Azithromycin 500 mg/Sodium Chloride 250 ml @ 250 mls/hr Q24H IV 10/19/16 20:00 10/21/16 19:33 (Vancomycin Consult Pharmacy) 0 ml @ 0 mls/hr UNSCH OTHER 10/19/16 17:45 (Vitamin C) 250 mg DAILY PO 10/20/16 09:00 10/22/16 08:32 (Pill Splitter) 1 ea UNSCH PRN OTHER 10/20/16 07:00 Methylprednisolone Sodium Succinate 40 mg 40 mg Q6HR IV 10/20/16 18:00 10/22/16 11:36 (Vancomycin Inj/ NS 250 ml Inj) 257.5 ml @ 250 mls/hr Q8H IV 10/21/16 18:00 10/22/16 10:36 (Lasix Inj) 40 mg BID@09,18 IV PUSH 10/21/16 11:00 10/22/16 08:34 (Cardizem Cd) 180 mg DAILY PO 10/22/16 09:00 10/22/16 08:32 (KCl) 20 meq DAILY PO 10/22/16 09:00 10/22/16 08:33 (Ativan Inj) 1 mg HS PRN IV 10/21/16 22:15 10/21/16 22:08 Miscellaneous Information SPECIFIC LAB TO BE DRAWN:VANCO TROUGH DATE TO... ONCE ONCE .XX 10/23/16 09:45 10/23/16 09:46 Vital Signs / I&O Vital Signs Date Time Temp Pulse Resp B/P Pulse Ox O2 Delivery O2 Flow Rate FiO2 10/22/16 12:00 98 Partial Non-Rebreather 10/22/16 10:00 117 10/22/16 09:06 100 Partial Rebreather 10.00 10/22/16 08:00 97.6 108 24 137/62 98 10/22/16 08:00 107 10/22/16 08:00 98 Partial Non-Rebreather 10/22/16 06:00 96 10/22/16 04:00 99 Bi-Pap 10/22/16 04:00 96 10/22/16 04:00 98.6 96 21 121/57 99 10/22/16 03:36 94 55 10/22/16 02:00 99 10/22/16 00:00 97 Bi-Pap 10/22/16 00:00 109 10/22/16 00:00 98.7 109 20 118/56 97 10/21/16 22:00 88 10/21/16 21:45 93 55 10/21/16 20:41 100 Non-Rebreather 10.00 100 10/21/16 20:00 100 Non-Rebreather 10/21/16 20:00 96 10/21/16 20:00 99.2 96 30 141/102 100 10/21/16 18:00 84 10/21/16 16:00 Partial Non-Rebreather 10/21/16 16:00 97.6 81 20 147/66 100 10/21/16 16:00 81 10/21/16 15:29 100 Partial Rebreather 10.00 10/21/16 15:29 96 Venturi Mask 6.00 50 10/21/16 14:00 75 I/O 10/21/16 10/21/16 10/21/16 10/22/16 10/22/16 10/22/16 07:00 15:00 23:00 07:00 15:00 23:00 Intake Total 1227 ml 1495 ml 826 ml 394 ml Output Total 1300 ml 2200 ml 400 ml 950 ml Balance 1227 ml 195 ml -1374 ml -6 ml -950 ml Intake Oral 720 ml 240 ml IV Total 1227 ml 775 ml 586 ml 394 ml Output Urine Total 1300 ml 2200 ml 400 ml 950 ml # Bowel Movements 0 0 0 Physical Exam GENERAL: Well developed, well nourished. No acute distress. HEENT: Jugular venous pressure is normal. CHEST: Lungs rhonchi to auscultation bilaterally. Unlabored respiratory effort. CARDIAC: Regular rate and rhythm without S3, S4, or murmur. ABDOMEN: Soft, nontender, no hepatosplenomegaly. Bowel sounds present. EXTREMITIES: No clubbing, cyanosis, or edema. Laboratory Laboratory Tests Test 10/22/16 10/22/16 04:41 08:00 White Blood Count 5.6 TH/MM3 Red Blood Count 3.13 MIL/MM3 Hemoglobin 8.8 GM/DL Hematocrit 27.5 % Mean Corpuscular Volume 87.9 FL Mean Corpuscular Hemoglobin 28.1 PG Mean Corpuscular Hemoglobin 31.9 % Concent Red Cell Distribution Width 15.8 % Platelet Count 93 TH/MM3 Mean Platelet Volume 8.3 FL Sodium Level 145 MEQ/L Potassium Level 4.1 MEQ/L Chloride Level 97 MEQ/L Carbon Dioxide Level GREATER THAN 45.0 MEQ/L Anion Gap 3 MEQ/L Blood Urea Nitrogen 27 MG/DL Creatinine 0.38 MG/DL Estimat Glomerular Filtration 170 ML/MIN Rate Random Glucose 144 MG/DL Calcium Level 7.8 MG/DL Magnesium Level 2.3 MG/DL Vancomycin Level Trough 19.6 MCG/ML Assessment and Plan Assessment and Plan 1. CHF - no overt evidence for CHF -stop lasix; 2. Hypertension - on cardizem -avoid BB with severe COPD 3. Pneumonia - antibiotics per medicine and pulmonary. 4. Severe COPD - per pulmonary. 5. Anemia- per primary Available Ekaterina Quiroz MD Oct 22, 2016 12:07
--- NOTE | 2016-10-22 12:25 | HHI.PR ---
Subjective Remarks Follow-up for acute on chronic respiratory failure Patient stated that she has some improvement in her breathing today. She continues complaint of shortness of breathing. Patient is urinating about every 20 minutes. She stated that BiPAP does help her. She is on BiPAP at night. She remains afebrile. Her is at the bedside. Objective Vitals Vital Signs Date Time Temp Pulse Resp B/P Pulse Ox O2 Delivery O2 Flow Rate FiO2 10/22/16 12:00 98 Partial Non-Rebreather 10/22/16 10:00 117 10/22/16 09:06 100 Partial Rebreather 10.00 10/22/16 08:00 97.6 108 24 137/62 98 10/22/16 08:00 107 10/22/16 08:00 98 Partial Non-Rebreather 10/22/16 06:00 96 10/22/16 04:00 99 Bi-Pap 10/22/16 04:00 96 10/22/16 04:00 98.6 96 21 121/57 99 10/22/16 03:36 94 55 10/22/16 02:00 99 10/22/16 00:00 97 Bi-Pap 10/22/16 00:00 109 10/22/16 00:00 98.7 109 20 118/56 97 10/21/16 22:00 88 10/21/16 21:45 93 55 10/21/16 20:41 100 Non-Rebreather 10.00 100 10/21/16 20:00 100 Non-Rebreather 10/21/16 20:00 96 10/21/16 20:00 99.2 96 30 141/102 100 10/21/16 18:00 84 10/21/16 16:00 Partial Non-Rebreather 10/21/16 16:00 97.6 81 20 147/66 100 10/21/16 16:00 81 10/21/16 15:29 100 Partial Rebreather 10.00 10/21/16 15:29 96 Venturi Mask 6.00 50 10/21/16 14:00 75 I/O 10/21/16 10/21/16 10/21/16 10/22/16 10/22/16 10/22/16 07:00 15:00 23:00 07:00 15:00 23:00 Intake Total 1227 ml 1495 ml 826 ml 394 ml Output Total 1300 ml 2200 ml 400 ml 950 ml Balance 1227 ml 195 ml -1374 ml -6 ml -950 ml Intake Oral 720 ml 240 ml IV Total 1227 ml 775 ml 586 ml 394 ml Output Urine Total 1300 ml 2200 ml 400 ml 950 ml # Bowel Movements 0 0 0 Result Diagram: 10/22/1644010/22/16440 Objective Remarks GENERAL: Resting in bed, on NRB. CARDIOVASCULAR: Tachycardic. S1, S2. No S4. Without murmur. RESPIRATORY: Distant lung sounds. GASTROINTESTINAL: Abdomen soft, non-tender, scaphoid. MUSCULOSKELETAL: Negative for any lower extremity edema.. No obvious deformities. NEUROLOGICAL: Awake and alert. No obvious cranial nerve deficits. Motor grossly within normal limits. Five out of 5 muscle strength in the arms and legs. Normal speech. PSYCHIATRIC: Appropriate mood and affect; insight and judgment normal. Medications and IVs Current Medications Albuterol/ Ipratropium (Duoneb Neb) 3 ampule STK-MED ONCE .ROUTE ; Start at 14:08; Stop 10/19/16 at 14:09; Status DC Sodium Chloride (NS Flush) 2 ml UNSCH PRN IVF FLUSH AFTER USING IV ACCESS; Start 10/19/16 at 14:15; Stop 10/21/16 at 22:04; Status DC Methylprednisolone Sodium Succinate (SoluMEDROL INJ) 125 mg ONCE ONCE IVP Last administered on 10/19/16 14:26; Start 10/19/16 at 14:15; Stop 10/19/16 at 14:16; Status DC Albuterol/ Ipratropium (Duoneb Neb) 1 ampule Q15M INH Last administered on 10/19 14:36; Start 10/19/16 at 14:15; Stop 10/19/16 at 14:46; Status DC Furosemide (Lasix Inj) 40 mg ONCE ONCE IV PUSH Last administered on 10/19/16 16:19; Start 10/19/16 at 16:00; Stop 10/19/16 at 16:01; Status DC Aspirin (Ecotrin Ec) 81 mg DAILY PO Last administered on 10/22/16 08:33; Start 10/20/16 at 09:00 Budesonide/ Formoterol Fumarate (Symbicort 160-4.5 Inh) 2 puff Q12HR INH Last administered on 10/22/16 08:34; Start 10/19/16 at 21:00 Metoprolol Tartrate (Lopressor) 50 mg BID PO Last administered on 10/21/16 10: 09; Start 10/19/16 at 21:00; Stop 10/21/16 at 14:31; Status DC Tiotropium Louisa (Spiriva Inh) 18 mcg DAILY INH Last administered on 11:12; Start 10/20/16 at 09:00; Stop 10/21/16 at 10:10; Status DC Multivitamins 1 tab 1 tab DAILY PO Last administered on 10/22/16 08:33; Start 10/20/16 at 09:00 Sodium Chloride (NS 1000 ml Inj) 1,000 ml @ 84 mls/hr [id number] IV Last administered on 10/21/16 05:37; Start 10/19/16 at 17:38; Stop 10/21/16 at 10:03 ; Status DC Sodium Chloride (NS Flush) 2 ml UNSCH PRN IV FLUSH FLUSH AFTER USING IV ACCESS ; Start 10/19/16 at 17:45 Sodium Chloride (NS Flush) 2 ml BID IV FLUSH Last administered on 10/22/16 08: 33; Start 10/19/16 at 21:00 Acetaminophen (Tylenol) 650 mg Q6H PRN PO FEVER >101F; Start 10/19/16 at 17:45 Acetaminophen/ Hydrocodone Bitart (Firth 5-325 Mg) 1 tab Q4H PRN PO PAIN SCALE 1 TO 5; Start 10/19/16 at 17:45 Morphine Sulfate (Morphine Inj) 2 mg Q2H PRN IV PAIN SCALE 6 TO 10; Start 10/19 at 17:45 Pantoprazole Sodium (Protonix Inj) 40 mg DAILY IV Last administered on 08:32; Start 10/20/16 at 09:00 Artificial Tears (Tears Naturale Opth Soln) 1 drop TID EACH EYE Last administered on 10/22/16 11:37; Start 10/19/16 at 18:00 Ondansetron HCl (Zofran Inj) 4 mg Q6H PRN IV NAUSEA OR VOMITING; Start at 17:45 Albuterol/ Ipratropium (Duoneb Neb) 1 ampule Q4HR NEB INH Last administered on 10/20/16 11:04; Start 10/19/16 at 20:00; Stop 10/20/16 at 12:17; Status DC Albuterol Sulfate (Albuterol Neb) 2.5 mg Q2HR NEB PRN INH SOB/WHEEZING; Start 10/19/16 at 17:45 Enoxaparin Sodium (Lovenox Inj) 40 mg Q24H SQ Last administered on 10/21/16 20 :58; Start 10/19/16 at 21:00 Miscellaneous Information 1 [id number] XX Last administered on 10/19/16 17:45; Start 10/19/16 at 17:45 Chlorhexidine Gluconate (Chlorhexidine 2% Cloth) 3 pack Taper DAILY@04 TOP Last administered on 10/19/16 21:33; Start 10/20/16 at 04:00; Stop 10/21/16 at 10:03; Status DC Chlorhexidine Gluconate (Chlorhexidine 2% Cloth) 3 pack UNSCH PRN TOP HYGIENIC CARE; Start 10/19/16 at 17:45; Stop 10/21/16 at 10:03; Status DC Senna/Docusate Sodium (Alyssa-Colace) 1 tab BID PO Last administered on 08:33; Start 10/19/16 at 21:00 Magnesium Hydroxide (Milk Of Magnesia Liq) 30 ml Q12H PRN PO MILD - MODERATE CONSTIPATION Last administered on 10/21/16 11:40; Start 10/19/16 at 17:45 Sennosides (Senokot) 17.2 mg Q12H PRN PO MODERATE - SEVERE CONSTIPATION; Start 10/19/16 at 17:45 Bisacodyl (Dulcolax Supp) 10 mg DAILY PRN RECTAL SEVERE CONSITIPATION; Start at 17:45 Lactulose 30 ml 30 ml DAILY PRN PO SEVERE CONSITIPATION; Start 10/19/16 at 17: 45 Cefepime HCl 2000 mg/Sodium Chloride 100 ml @ 200 mls/hr Q8H IV Last administered on 10/22/16 11:37; Start 10/19/16 at 19:00 Azithromycin 500 mg/Sodium Chloride 250 ml @ 250 mls/hr Q24H IV Last administered on 10/21/16 19:33; Start 10/19/16 at 20:00 Pharmacy Profile Note (Vancomycin Consult Pharmacy) 0 ml @ 0 mls/hr UNSCH OTHER ; Start 10/19/16 at 17:45 Methylprednisolone Sodium Succinate 40 mg 40 mg Q12H IV Last administered on 03:40; Start 10/20/16 at 02:00; Stop 10/20/16 at 12:17; Status DC Vancomycin HCl/ Sodium Chloride (Vancomycin Inj/ NS 250 ml Inj) 257.5 ml @ 250 mls/hr Q12H IV Last administered on 10/21/16 10:08; Start 10/19/16 at 20:00; Stop 10/21/16 at 11:01; Status DC Miscellaneous Information SPECIFIC LAB TO BE DRAWN:VANCO TROUGH DATE TO... ONCE ONCE .XX ; Start 10/21/16 at 07:45; Stop 10/21/16 at 07:46; Status DC Ascorbic Acid (Vitamin C) 250 mg DAILY PO Last administered on 10/22/16 08:32 ; Start 10/20/16 at 09:00 Acetazolamide Sodium (Diamox Inj) 250 mg ONCE ONCE IV PUSH ; Start 10/20/16 at 07:00; Stop 10/20/16 at 07:01; Status UNV Miscellaneous (Pill Splitter) 1 ea UNSCH PRN OTHER SEE LABEL COMMENTS; Start at 07:00 Albuterol/ Ipratropium (Duoneb Neb) 1 ampule Q6HR NEB NEB Last administered on 10/22/16 09:06; Start 10/20/16 at 16:00 Methylprednisolone Sodium Succinate (SoluMEDROL INJ) 40 mg Q6HR IV Last administered on 10/22/16 11:36; Start 10/20/16 at 18:00 Lorazepam 0.5 mg 0.5 mg ONCE ONCE IV PUSH Last administered on 10/20/16 23:03 ; Start 10/20/16 at 22:15; Stop 10/20/16 at 22:16; Status DC Vancomycin HCl/ Sodium Chloride (Vancomycin Inj/ NS 250 ml Inj) 257.5 ml @ 250 mls/hr Q8H IV Last administered on 10/22/16 10:36; Start 10/21/16 at 18:00 Miscellaneous Information SPECIFIC LAB TO BE DRAWN:VANCO TROUGH DATE TO... ONCE ONCE .XX ; Start 10/22/16 at 09:45; Stop 10/22/16 at 09:46; Status DC Furosemide (Lasix Inj) 40 mg BID@,18 IV PUSH Last administered on 10/22/16 08:34; Start 10/21/16 at 11:00 Diltiazem HCl (Cardizem Cd) 180 mg DAILY PO Last administered on 10/22/16 08: 32; Start 10/22/16 at 09:00 Furosemide (Lasix Inj) 20 mg DAILY IV PUSH Last administered on 10/21/16 15:38 ; Start 10/21/16 at 15:00; Stop 10/22/16 at 07:48; Status DC Potassium Chloride (KCl) 20 meq DAILY PO Last administered on 10/22/16 08:33; Start 10/22/16 at 09:00 Lorazepam (Ativan Inj) 1 mg HS PRN IV ANXIETY Last administered on 10/21/16 22 :08; Start 10/21/16 at 22:15 Miscellaneous Information SPECIFIC LAB TO BE DRAWN:VANCO TROUGH DATE TO... ONCE ONCE .XX ; Start 10/23/16 at 09:45; Stop 10/23/16 at 09:46 A/P Problem List: (1) Acute exacerbation of chronic obstructive pulmonary disease (COPD) ICD Code: J44.1 Status: Acute (2) Atypical pneumonia ICD Code: J18.9 Status: Acute (3) Chronic respiratory failure with hypoxia ICD Code: J96.11 Status: Chronic (4) Hypertension ICD Code: I10 Status: Acute (5) CAD (coronary artery disease) ICD Code: I25.10 Status: Acute (6) Vertical strabismus, left eye ICD Code: H50.22 Status: Acute (7) Osteoarthritis ICD Code: M19.90 Status: Acute (8) History of myocardial infarction ICD Code: I25.2 Status: Acute Assessment and Plan Acute on chronic hypercarbic respiratory failure/ COPD History of obstructive lung disease. No smoking history. Alpha-1 anti-trypsin workup negative. Pulmonology consult appreciated. CT chest showed: Moderate- sized bilateral pleural effusions with adjacent compressive atelectasis and/or infiltrates; Diffuse ground-glass densities within the aerated portions of both lungs raising the possibility of pulmonary vascular congestion; Stable mediastinal lymphadenopathy which is nonspecific; Stable calcified granuloma within the left lower lobe. - oxygen as needed to keep saturations around 90%. - follow up with pulmonology. - Bronchodilator therapy every 6 hours and albuterol every 2 hours when necessary. Hold Spiriva. - Continue Symbicort 160/4.5 2 puffs twice a day. - continue with management per pie maker machine. -COPD seems severe with multiple admissions to the hospital. ? Poor prognosis. Acute grade 1 diastolic CHF/ Coronary artery disease Echo with normal EF, grade 1 diastolic CHF. EKG reveals no signs of acute ST elevation; There is left axis deviation/mild LVH appreciated. Trops flat. - Team Member was consulted. Recommend to discontinue metoprolol due to severe COPD which was DC'd yesterday and to start patient on calcium channel miguel angel. Patient is on Cardizem 180 mg by mouth daily. - Patient on Lasix 40 mg IV twice a day with very good urine output. Over 3 L of output yesterday Will decrease Lasix to 20 mg IV daily. -Strict ins and outs. Normocytic anemia/ Thrombocytopenia Likely partially dilutional. - Monitor trends. CAP Previously on ciprofloxacin and Terramycin aerosols twice a day. Sputum culture with normal thalia. - continue cefepime/Zithromax and vancomycin for community-acquired pneumonia. - follow blood cultures. Hypernatremia The pt was on NS. - d/c NS. - monitor BMP while diuresing. PPx: SCD/Lovenox subcutaneous Discharge Planning Patient is on nonrebreather will need to remain in the ICU. Problem Qualifiers (1) Hypertension: Qualified Code: I10 - Essential hypertension (2) CAD (coronary artery disease): Qualified Code: I25.10 - Coronary artery disease involving [place] heart without angina pectoris, unspecified vessel or lesion type (3) Osteoarthritis: Qualified Code: M19.90 - Osteoarthritis, unspecified osteoarthritis type, unspecified site Elvia Hair MD Oct 22, 2016 12:25
--- NOTE | 2016-10-22 12:39 | HHI.PR ---
Subjective Remarks She is feeling tired. Alert and on a NRB mask. Was on Bipap at HS Objective Vital Signs Date Time Temp Pulse Resp B/P Pulse Ox O2 Delivery O2 Flow Rate FiO2 10/22/16 12:00 98 Partial Non-Rebreather 10/22/16 10:00 117 10/22/16 09:06 100 Partial Rebreather 10.00 10/22/16 08:00 97.6 108 24 137/62 98 10/22/16 08:00 107 10/22/16 08:00 98 Partial Non-Rebreather 10/22/16 06:00 96 10/22/16 04:00 99 Bi-Pap 10/22/16 04:00 96 10/22/16 04:00 98.6 96 21 121/57 99 10/22/16 03:36 94 55 10/22/16 02:00 99 10/22/16 00:00 97 Bi-Pap 10/22/16 00:00 109 10/22/16 00:00 98.7 109 20 118/56 97 10/21/16 22:00 88 10/21/16 21:45 93 55 10/21/16 20:41 100 Non-Rebreather 10.00 100 10/21/16 20:00 100 Non-Rebreather 10/21/16 20:00 96 10/21/16 20:00 99.2 96 30 141/102 100 10/21/16 18:00 84 10/21/16 16:00 Partial Non-Rebreather 10/21/16 16:00 97.6 81 20 147/66 100 10/21/16 16:00 81 10/21/16 15:29 100 Partial Rebreather 10.00 10/21/16 15:29 96 Venturi Mask 6.00 50 10/21/16 14:00 75 I/O 10/21/16 10/21/16 10/21/16 10/22/16 10/22/16 10/22/16 07:00 15:00 23:00 07:00 15:00 23:00 Intake Total 1227 ml 1495 ml 826 ml 394 ml Output Total 1300 ml 2200 ml 400 ml 950 ml Balance 1227 ml 195 ml -1374 ml -6 ml -950 ml Intake Oral 720 ml 240 ml IV Total 1227 ml 775 ml 586 ml 394 ml Output Urine Total 1300 ml 2200 ml 400 ml 950 ml # Bowel Movements 0 0 0 Result Diagram: 10/22/1644010/22/16440 Objective Remarks This thinly built middle-aged white female is pale in mild distress. HEENT: Head normocephalic. Pupils are reactive. Tongue is moist. Throat was clear. Nasal mucosa injected. NECK: Supple without venous distension or thyromegaly or lymphadenopathy. CHEST: Decreased excursions with occasional basilar crackles with expiratory wheezes bilaterally. HEART: The heart sounds irregular S1-S2. No murmur S3 gallop. ABDOMEN: Soft and protuberant with no tenderness. No organomegaly. The bowel sounds are active. EXTREMITIES: minimal edema of the ankles. Peripheral pulses are felt. NEUROLOGIC: No focal deficits noted. RECTAL: Exam is deferred. Assessment and Plan Assessment and Plan IMPRESSION 1. Acute on chronic respiratory failure 2. Severe COPD and chronic bronchitis 3. History of coronary artery disease. 4. Hypertension 5. Probable basilar pneumonia 6. CHF Plan : 1. Place on a Ventimask at 40 %. 2. Bipap at HS 12/5, FIo2 35 % 3. Nebs qid , duoneb 4. Lasix 20 mg IV daily. 5. Continue antibiotics 6. CBC ,BMP in am Dony Pineda MD Oct 22, 2016 12:39
[2016-10-22] MEDS: ACETAMINOPHEN 325 MG TAB PO PRN (14:03)
[2016-10-22] MEDS ORDERED: LORazepam 0.5 MG TAB PO ONE (17:45)
[2016-10-22] MEDS: AZITHROMYCIN INJ 500 MG in SODIUM CHLOR 0.9% 250 ML INJ 250 ML IV SCH (20:59)
[2016-10-22] MEDS: ENOXAPARIN SODIUM 40 MG/0.4 ML SYRINGE SQ SCH (20:59)
[2016-10-22] MEDS: LORazepam 2 MG/ML VIAL IV PRN (22:44)
[2016-10-23] VITALS (16 sets, daily range): BP systolic 120–149; BP diastolic 57–74; PULSE 83–102; RESP 20–22; TEMP 97.4–98.7; O2SAT 93–100
[2016-10-23] MEDS: VANCOMYCIN INJ 750 MG in SODIUM CHLOR 0.9% 250 ML INJ 250 ML IV SCH ×2 (02:01→09:37)
[2016-10-23] MEDS: methylPREDNISolone SOD SUCC 40 MG/1 ML VIAL IV SCH ×4 (02:01→17:00)
[2016-10-23] MEDS: RESP: ALBUTEROL 2.5 MG/IPRATROPIUM 0.5 MG NEB (SCH) NEB ×4 (04:53→21:41)
[2016-10-23] MEDS: CEFEPIME INJ 2,000 MG in SODIUM CHLORIDE 0.9% INJ 100 ML IV SCH ×3 (05:13→17:01)
[2016-10-23 06:23] LABS: HEMATOCRIT 28.8 % (35.0-46.0); MEAN CELL VOLUME 88.1 FL (80.0-100.0); MEAN CORPUSCULAR HEMOGLOBIN 27.8 PG (27.0-34.0); MEAN CORPUSCULAR HGB CONC 31.5 % (32.0-36.0); PLATELET COUNT 90 TH/MM3 (150-450); RED BLOOD COUNT 3.26 MIL/MM3 (4.00-5.30); RED CELL DISTRIBUTION WIDTH 15.5 % (11.6-17.2); WHITE BLOOD COUNT 5.3 TH/MM3 (4.0-11.0)
[2016-10-23 06:36] LABS: REVIEW FLAG FINAL
[2016-10-23 06:54] LABS: ANION GAP 3 MEQ/L (5-15); BICARBONATE GREATER THAN 45.0 MEQ/L (21.0-32.0); BLOOD UREA NITROGEN 26 MG/DL (7-18); CHLORIDE 94 MEQ/L (98-107); GLOMERULAR FILTRATION RATE 156 ML/MIN (>89); MAGNESIUM 2.5 MG/DL (1.5-2.5); POTASSIUM 4.3 MEQ/L (3.5-5.1); SODIUM (NA) 142 MEQ/L (136-145)
[2016-10-23] MEDS: ASPIRIN EC 81 MG TABEC PO SCH (07:53)
[2016-10-23] MEDS: DOCUSATE SODIUM 50 MG/SENNA 8.6 MG TAB PO SCH ×2 (07:53→20:25)
[2016-10-23] MEDS: DILTIAZEM-CD 180 MG CAP ER PO SCH (07:53)
[2016-10-23] MEDS: MULTIVITAMIN TAB PO SCH (07:53)
[2016-10-23] MEDS: ASCORBIC ACID 500 MG TAB PO SCH (07:54)
[2016-10-23] MEDS: POTASSIUM CHLORIDE 20 MEQ CONTROLLED RELEASE TAB PO SCH (07:54)
[2016-10-23] MEDS: PANTOPRAZOLE SODIUM 40 MG VIAL IV SCH (07:55)
[2016-10-23] MEDS: SODIUM CHLORIDE 0.9% FLUSH 10 ML FLUSH IV FLUSH SCH ×2 (07:55→20:30)
[2016-10-23] MEDS: FUROSEMIDE 20 MG/2 ML VIAL IV PUSH SCH ×2 (07:56→20:25)
[2016-10-23] MEDS: BUDESONIDE-FORMOTEROL 160/4.5 MCG INHALER INH SCH ×2 (07:56→20:30)
[2016-10-23] MEDS: ARTIFICIAL TEARS OPTH SOLN 15 ML BTL EACH EYE SCH ×3 (07:56→17:00)
[2016-10-23] MEDS ORDERED: FUROSEMIDE 20 MG/2 ML VIAL IV PUSH SCH (09:00)
[2016-10-23] MEDS ORDERED: PHARMACY ORDERED LAB ONE ×2 (09:45→17:45)
--- NOTE | 2016-10-23 13:20 | HHI.PR ---
Subjective Remarks Follow-up for respiratory failure Patient able to tolerate nasal cannula only for a few hours. Did not have to use Ativan yesterday because anxiety resolved. Patient stated that her breathing has improved today. Patient is coughing but nothing is coming out. Patient has good urine output. Her is at the bedside. No other complaints. Objective Vitals Vital Signs Date Time Temp Pulse Resp B/P Pulse Ox O2 Delivery O2 Flow Rate FiO2 10/23/16 12:00 98.2 95 21 132/60 97 10/23/16 12:00 95 Partial Non-Rebreather 10/23/16 12:00 95 10/23/16 11:50 Partial Non-Rebreather 10/23/16 11:32 93 Nasal Cannula 6.00 10/23/16 10:45 Partial Non-Rebreather 10/23/16 10:09 93 Nasal Cannula 5.00 10/23/16 10:00 101 10/23/16 08:15 94 Nasal Cannula 6.00 10/23/16 08:00 100 Partial Non-Rebreather 10/23/16 08:00 98 10/23/16 08:00 97.4 98 22 149/67 100 10/23/16 06:00 100 10/23/16 04:53 96 55 10/23/16 04:00 83 10/23/16 04:00 96 Bi-Pap 10/23/16 04:00 98.5 83 20 129/62 96 10/23/16 02:44 97 55 10/23/16 02:00 86 10/23/16 00:00 97 10/23/16 00:00 98.4 97 20 120/57 95 10/23/16 00:00 95 Bi-Pap 10/22/16 22:40 96 Nasal Cannula 5.00 10/22/16 22:40 95 55 10/22/16 22:00 106 10/22/16 20:00 99.7 100 18 136/64 99 10/22/16 20:00 100 10/22/16 20:00 99 Nasal Cannula 6.00 10/22/16 18:00 93 10/22/16 18:00 93 Nasal Cannula 6.00 10/22/16 16:48 Non-Rebreather 10/22/16 16:00 97.4 92 24 132/62 94 10/22/16 16:00 92 10/22/16 15:30 92 Nasal Cannula 4.00 10/22/16 14:30 97 Nasal Cannula 5.00 10/22/16 14:00 98 I/O 10/22/16 10/22/16 10/22/16 10/23/16 10/23/16 10/23/16 07:00 15:00 23:00 07:00 15:00 23:00 Intake Total 394 ml 840 ml 422 ml 380 ml Output Total 400 ml 1500 ml 575 ml 300 ml 200 ml Balance -6 ml -660 ml -153 ml 80 ml -200 ml Intake Oral 480 ml 100 ml 100 ml IV Total 394 ml 360 ml 322 ml 280 ml Output Urine Total 400 ml 1500 ml 575 ml 300 ml 200 ml # Bowel Movements 0 0 0 1 Result Diagram: 10/23/1652310/23/16523 Objective Remarks GENERAL: Resting in bed, on NRB. CARDIOVASCULAR: Tachycardic. S1, S2. No S4. Without murmur. RESPIRATORY: Distant lung sounds. GASTROINTESTINAL: Abdomen soft, non-tender, scaphoid. MUSCULOSKELETAL: Negative for any lower extremity edema.. No obvious deformities. NEUROLOGICAL: Awake and alert. No obvious cranial nerve deficits. Motor grossly within normal limits. Five out of 5 muscle strength in the arms and legs. Normal speech. PSYCHIATRIC: Appropriate mood and affect; insight and judgment normal. Medications and IVs Current Medications Albuterol/ Ipratropium (Duoneb Neb) 3 ampule STK-MED ONCE .ROUTE ; Start at 14:08; Stop 10/19/16 at 14:09; Status DC Sodium Chloride (NS Flush) 2 ml UNSCH PRN IVF FLUSH AFTER USING IV ACCESS; Start 10/19/16 at 14:15; Stop 10/21/16 at 22:04; Status DC Methylprednisolone Sodium Succinate (SoluMEDROL INJ) 125 mg ONCE ONCE IVP Last administered on 10/19/16 14:26; Start 10/19/16 at 14:15; Stop 10/19/16 at 14:16; Status DC Albuterol/ Ipratropium (Duoneb Neb) 1 ampule Q15M INH Last administered on 10/19 14:36; Start 10/19/16 at 14:15; Stop 10/19/16 at 14:46; Status DC Furosemide (Lasix Inj) 40 mg ONCE ONCE IV PUSH Last administered on 10/19/16 16:19; Start 10/19/16 at 16:00; Stop 10/19/16 at 16:01; Status DC Aspirin (Ecotrin Ec) 81 mg DAILY PO Last administered on 10/22/16 08:33; Start 10/20/16 at 09:00 Budesonide/ Formoterol Fumarate (Symbicort 160-4.5 Inh) 2 puff Q12HR INH Last administered on 10/23/16 07:56; Start 10/19/16 at 21:00 Metoprolol Tartrate (Lopressor) 50 mg BID PO Last administered on 10/21/16 10: 09; Start 10/19/16 at 21:00; Stop 10/21/16 at 14:31; Status DC Tiotropium [place] (Spiriva Inh) 18 mcg DAILY INH Last administered on 11:12; Start 10/20/16 at 09:00; Stop 10/21/16 at 10:10; Status DC Multivitamins 1 tab 1 tab DAILY PO Last administered on 10/23/16 07:53; Start 10/20/16 at 09:00 Sodium Chloride (NS 1000 ml Inj) 1,000 ml @ 84 mls/hr [id number] IV Last administered on 10/21/16 05:37; Start 10/19/16 at 17:38; Stop 10/21/16 at 10:03 ; Status DC Sodium Chloride (NS Flush) 2 ml UNSCH PRN IV FLUSH FLUSH AFTER USING IV ACCESS ; Start 10/19/16 at 17:45 Sodium Chloride (NS Flush) 2 ml BID IV FLUSH Last administered on 10/23/16 07: 55; Start 10/19/16 at 21:00 Acetaminophen (Tylenol) 650 mg Q6H PRN PO FEVER >101F Last administered on 10/22 14:03; Start 10/19/16 at 17:45 Acetaminophen/ Hydrocodone Bitart ([place] 5-325 Mg) 1 tab Q4H PRN PO PAIN SCALE 1 TO 5; Start 10/19/16 at 17:45 Morphine Sulfate (Morphine Inj) 2 mg Q2H PRN IV PAIN SCALE 6 TO 10; Start 10/19 at 17:45 Pantoprazole Sodium (Protonix Inj) 40 mg DAILY IV Last administered on 07:55; Start 10/20/16 at 09:00 Artificial Tears (Tears Naturale Opth Soln) 1 drop TID EACH EYE Last administered on 10/23/16 11:20; Start 10/19/16 at 18:00 Ondansetron HCl (Zofran Inj) 4 mg Q6H PRN IV NAUSEA OR VOMITING; Start at 17:45 Albuterol/ Ipratropium (Duoneb Neb) 1 ampule Q4HR NEB INH Last administered on 10/20/16 11:04; Start 10/19/16 at 20:00; Stop 10/20/16 at 12:17; Status DC Albuterol Sulfate (Albuterol Neb) 2.5 mg Q2HR NEB PRN INH SOB/WHEEZING; Start 10/19/16 at 17:45 Enoxaparin Sodium (Lovenox Inj) 40 mg Q24H SQ Last administered on 10/22/16 20 :59; Start 10/19/16 at 21:00 Miscellaneous Information 1 [id number] XX Last administered on 10/19/16 17:45; Start 10/19/16 at 17:45 Chlorhexidine Gluconate (Chlorhexidine 2% Cloth) 3 pack Taper DAILY@04 TOP Last administered on 10/19/16 21:33; Start 10/20/16 at 04:00; Stop 10/21/16 at 10:03; Status DC Chlorhexidine Gluconate (Chlorhexidine 2% Cloth) 3 pack UNSCH PRN TOP HYGIENIC CARE; Start 10/19/16 at 17:45; Stop 10/21/16 at 10:03; Status DC Senna/Docusate Sodium (Alyssa-Colace) 1 tab BID PO Last administered on 07:53; Start 10/19/16 at 21:00 Magnesium Hydroxide (Milk Of Magnesia Liq) 30 ml Q12H PRN PO MILD - MODERATE CONSTIPATION Last administered on 10/21/16 11:40; Start 10/19/16 at 17:45 Sennosides (Senokot) 17.2 mg Q12H PRN PO MODERATE - SEVERE CONSTIPATION; Start 10/19/16 at 17:45 Bisacodyl (Dulcolax Supp) 10 mg DAILY PRN RECTAL SEVERE CONSITIPATION; Start at 17:45 Lactulose 30 ml 30 ml DAILY PRN PO SEVERE CONSITIPATION Last administered on 16:16; Start 10/19/16 at 17:45 Cefepime HCl 2000 mg/Sodium Chloride 100 ml @ 200 mls/hr Q8H IV Last administered on 10/23/16 11:19; Start 10/19/16 at 19:00 Azithromycin 500 mg/Sodium Chloride 250 ml @ 250 mls/hr Q24H IV Last administered on 10/22/16 20:59; Start 10/19/16 at 20:00 Pharmacy Profile Note (Vancomycin Consult Pharmacy) 0 ml @ 0 mls/hr UNSCH OTHER ; Start 10/19/16 at 17:45 Methylprednisolone Sodium Succinate 40 mg 40 mg Q12H IV Last administered on 03:40; Start 10/20/16 at 02:00; Stop 10/20/16 at 12:17; Status DC Vancomycin HCl/ Sodium Chloride (Vancomycin Inj/ NS 250 ml Inj) 257.5 ml @ 250 mls/hr Q12H IV Last administered on 10/21/16 10:08; Start 10/19/16 at 20:00; Stop 10/21/16 at 11:01; Status DC Miscellaneous Information SPECIFIC LAB TO BE DRAWN:VANCO TROUGH DATE TO... ONCE ONCE .XX ; Start 10/21/16 at 07:45; Stop 10/21/16 at 07:46; Status DC Ascorbic Acid (Vitamin C) 250 mg DAILY PO Last administered on 10/23/16 07:54 ; Start 10/20/16 at 09:00 Acetazolamide Sodium (Diamox Inj) 250 mg ONCE ONCE IV PUSH ; Start 10/20/16 at 07:00; Stop 10/20/16 at 07:01; Status UNV Miscellaneous (Pill Splitter) 1 ea UNSCH PRN OTHER SEE LABEL COMMENTS; Start at 07:00 Albuterol/ Ipratropium (Duoneb Neb) 1 ampule Q6HR NEB NEB Last administered on 10/23/16 10:09; Start 10/20/16 at 16:00 Methylprednisolone Sodium Succinate (SoluMEDROL INJ) 40 mg Q6HR IV Last administered on 10/23/16 11:19; Start 10/20/16 at 18:00 Lorazepam 0.5 mg 0.5 mg ONCE ONCE IV PUSH Last administered on 10/20/16 23:03 ; Start 10/20/16 at 22:15; Stop 10/20/16 at 22:16; Status DC Vancomycin HCl/ Sodium Chloride (Vancomycin Inj/ NS 250 ml Inj) 257.5 ml @ 250 mls/hr Q8H IV Last administered on 10/23/16 09:37; Start 10/21/16 at 18:00; Stop 10/23/16 at 12:40; Status DC Miscellaneous Information SPECIFIC LAB TO BE DRAWN:VANCO TROUGH DATE TO... ONCE ONCE .XX ; Start 10/22/16 at 09:45; Stop 10/22/16 at 09:46; Status DC Furosemide (Lasix Inj) 40 mg BID@09,18 IV PUSH Last administered on 10/22/16 08:34; Start 10/21/16 at 11:00; Stop 10/22/16 at 12:25; Status DC Diltiazem HCl (Cardizem Cd) 180 mg DAILY PO Last administered on 10/23/16 07: 53; Start 10/22/16 at 09:00 Furosemide (Lasix Inj) 20 mg DAILY IV PUSH Last administered on 10/21/16 15:38 ; Start 10/21/16 at 15:00; Stop 10/22/16 at 07:48; Status DC Potassium Chloride (KCl) 20 meq DAILY PO Last administered on 10/23/16 07:54; Start 10/22/16 at 09:00 Lorazepam (Ativan Inj) 1 mg HS PRN IV ANXIETY Last administered on 10/22/16 22 :44; Start 10/21/16 at 22:15 Miscellaneous Information SPECIFIC LAB TO BE DRAWN:VANCO TROUGH DATE TO... ONCE ONCE .XX ; Start 10/23/16 at 09:45; Stop 10/23/16 at 09:46; Status DC Furosemide (Lasix Inj) 20 mg DAILY IV PUSH ; Start 10/23/16 at 09:00; Stop 10/23 at 09:00; Status DC Furosemide (Lasix Inj) 20 mg BID IV PUSH Last administered on 10/23/16t 07:56; Start 10/23/16 at 09:00 Lorazepam (Ativan) 0.5 mg ONCE ONCE PO ; Start 10/22/16 at 17:45; Stop at 17:48; Status DC Miscellaneous Information SPECIFIC LAB TO BE PRABHU... ONCE ONCE .XX ; Start 10/23 at 17:45; Stop 10/23/16 at 17:46 A/P Problem List: (1) Acute exacerbation of chronic obstructive pulmonary disease (COPD) ICD Code: J44.1 Status: Acute (2) Atypical pneumonia ICD Code: J18.9 Status: Acute (3) Chronic respiratory failure with hypoxia ICD Code: J96.11 Status: Chronic (4) Hypertension ICD Code: I10 Status: Acute (5) CAD (coronary artery disease) ICD Code: I25.10 Status: Acute (6) Vertical strabismus, left eye ICD Code: H50.22 Status: Acute (7) Osteoarthritis ICD Code: M19.90 Status: Acute (8) History of myocardial infarction ICD Code: I25.2 Status: Acute Assessment and Plan Acute on chronic hypercarbic respiratory failure/ COPD History of obstructive lung disease. No smoking history. Alpha-1 anti-trypsin workup negative. Pulmonology consult appreciated. CT chest showed: Moderate- sized bilateral pleural effusions with adjacent compressive atelectasis and/or infiltrates; Diffuse ground-glass densities within the aerated portions of both lungs raising the possibility of pulmonary vascular congestion; Stable mediastinal lymphadenopathy which is nonspecific; Stable calcified granuloma within the left lower lobe. - oxygen as needed to keep saturations around 90%. - follow up with pulmonology. - Bronchodilator therapy every 6 hours and albuterol every 2 hours when necessary. Hold Spiriva. - Continue Symbicort 160/4.5 2 puffs twice a day. - continue with management per camp manager. -COPD seems severe with multiple admissions to the hospital. ? Poor prognosis. Acute grade 1 diastolic CHF/ Coronary artery disease Echo with normal EF, grade 1 diastolic CHF. EKG reveals no signs of acute ST elevation; There is left axis deviation/mild LVH appreciated. Trops flat. - Production Recovery Operator was consulted. Recommend to discontinue metoprolol due to severe COPD which was DC'd yesterday and to start patient on calcium channel miguel angel. Patient is on Cardizem 180 mg by mouth daily. - Production Recovery Operator does not think patient isn't CHF. Production Recovery Operator discontinue Lasix. Lasix was restarted by camp manager at 20 mg IV twice a day. Normocytic anemia/ Thrombocytopenia Likely partially dilutional. - Monitor trends. CAP Previously on ciprofloxacin and Terramycin aerosols twice a day. Sputum culture with normal thalia. - continue cefepime/Zithromax and vancomycin for community-acquired pneumonia. - Like cultures and sputum cultures are negative. Hypernatremia The pt was on NS. - d/c NS. - monitor BMP while diuresing. PPx: SCD/Lovenox subcutaneous Discharge Planning Patient is intermittently switching from nonrebreather to nasal cannula. Will need to continue to monitor in the ICU. Problem Qualifiers (1) Hypertension: Qualified Code: I10 - Essential hypertension (2) CAD (coronary artery disease): Qualified Code: I25.10 - Coronary artery disease involving [place] heart without angina pectoris, unspecified vessel or lesion type (3) Osteoarthritis: Qualified Code: M19.90 - Osteoarthritis, unspecified osteoarthritis type, unspecified site Elvia Hair MD Oct 23, 2016 13:20
[2016-10-23] MEDS ORDERED: PILL SPLITTER OTHER PRN (13:45)
[2016-10-23] MEDS: ENOXAPARIN SODIUM 40 MG/0.4 ML SYRINGE SQ SCH (20:26)
[2016-10-23] MEDS: AZITHROMYCIN INJ 500 MG in SODIUM CHLOR 0.9% 250 ML INJ 250 ML IV SCH (20:28)
[2016-10-23] MEDS: LORazepam 2 MG/ML VIAL IV PRN (21:30)
[2016-10-24] VITALS (14 sets, daily range): BP systolic 141–154; BP diastolic 62–72; PULSE 86–104; RESP 20–22; TEMP 97.8–98.8; O2SAT 94–98
[2016-10-24] MEDS: methylPREDNISolone SOD SUCC 40 MG/1 ML VIAL IV SCH ×5 (00:04→21:28)
[2016-10-24] MEDS: CEFEPIME INJ 2,000 MG in SODIUM CHLORIDE 0.9% INJ 100 ML IV SCH ×3 (03:09→17:17)
[2016-10-24] MEDS: RESP: ALBUTEROL 2.5 MG/IPRATROPIUM 0.5 MG NEB (SCH) NEB ×3 (04:17→16:00)
[2016-10-24 05:49] LABS: HEMATOCRIT 26.4 % (35.0-46.0); MEAN CELL VOLUME 87.9 FL (80.0-100.0); MEAN CORPUSCULAR HEMOGLOBIN 27.1 PG (27.0-34.0); MEAN CORPUSCULAR HGB CONC 30.8 % (32.0-36.0); PLATELET COUNT 72 TH/MM3 (150-450); RED CELL DISTRIBUTION WIDTH 15.2 % (11.6-17.2); WHITE BLOOD COUNT 5.4 TH/MM3 (4.0-11.0)
[2016-10-24 05:52] LABS: REVIEW FLAG FINAL
[2016-10-24 06:08] LABS: ANION GAP 3 MEQ/L (5-15); BICARBONATE GREATER THAN 45.0 MEQ/L (21.0-32.0); BLOOD UREA NITROGEN 26 MG/DL (7-18); CHLORIDE 95 MEQ/L (98-107); GLOMERULAR FILTRATION RATE 140 ML/MIN (>89); POTASSIUM 4.2 MEQ/L (3.5-5.1); SODIUM (NA) 143 MEQ/L (136-145)
[2016-10-24] MEDS: DILTIAZEM-CD 180 MG CAP ER PO SCH (08:08)
[2016-10-24] MEDS: MULTIVITAMIN TAB PO SCH (08:08)
[2016-10-24] MEDS: ASPIRIN EC 81 MG TABEC PO SCH (08:08)
[2016-10-24] MEDS: POTASSIUM CHLORIDE 20 MEQ CONTROLLED RELEASE TAB PO SCH (08:08)
[2016-10-24] MEDS: ARTIFICIAL TEARS OPTH SOLN 15 ML BTL EACH EYE SCH ×3 (08:09→17:16)
[2016-10-24] MEDS: ASCORBIC ACID 500 MG TAB PO SCH (08:09)
[2016-10-24] MEDS: BUDESONIDE-FORMOTEROL 160/4.5 MCG INHALER INH SCH ×2 (08:09→21:30)
[2016-10-24] MEDS: DOCUSATE SODIUM 50 MG/SENNA 8.6 MG TAB PO SCH ×2 (08:09→21:30)
[2016-10-24] MEDS: PANTOPRAZOLE SODIUM 40 MG VIAL IV SCH (08:09)
[2016-10-24] MEDS: FUROSEMIDE 20 MG/2 ML VIAL IV PUSH SCH (08:10)
[2016-10-24] MEDS: SODIUM CHLORIDE 0.9% FLUSH 10 ML FLUSH IV FLUSH SCH ×2 (08:10→21:28)
[2016-10-24] MEDS: ACETAMINOPHEN/HYDROcodone 325 MG/5 MG TAB PO PRN (10:50)
[2016-10-24] MEDS ORDERED: CYCLOBENZAPRINE HCL 10 MG TAB PO ONE (12:45)
[2016-10-24] MEDS ORDERED: CYCLOBENZAPRINE HCL 10 MG TAB PO PRN (12:45)
--- NOTE | 2016-10-24 16:07 | HHI.PR ---
Subjective Remarks Follow-up for respiratory failure Patient has been doing a lot better today. She stated that she has been on nasal cannula since 6 AM and has been doing well. Shortness of breathing has improved. Deny cough. Patient now complaining of calf cramping. Patient asking to ambulate. Otherwise no complaints. Her is at the bedside. Objective Vitals Vital Signs Date Time Temp Pulse Resp B/P Pulse Ox O2 Delivery O2 Flow Rate FiO2 10/24/16 16:00 86 10/24/16 16:00 95 Nasal Cannula 4.00 Bi-Pap 10/24/16 14:00 99 10/24/16 12:00 98.4 98 20 141/62 94 10/24/16 12:00 100 10/24/16 12:00 95 Nasal Cannula 4.00 Bi-Pap 10/24/16 10:44 95 Nasal Cannula 4.50 10/24/16 10:00 104 10/24/16 08:00 92 Nasal Cannula 4.00 Bi-Pap 10/24/16 08:00 97.8 93 22 152/70 95 10/24/16 08:00 93 10/24/16 06:00 91 10/24/16 04:00 Nasal Cannula 5.00 Bi-Pap 10/24/16 04:00 99 10/24/16 04:00 98.5 99 20 152/72 94 10/24/16 02:00 90 10/24/16 00:00 93 10/24/16 00:00 96 Nasal Cannula 35 Bi-Pap 10/24/16 00:00 98.8 93 20 144/66 96 10/23/16 22:00 102 10/23/16 21:43 95 55 10/23/16 20:00 100 10/23/16 20:00 98.7 100 22 145/74 96 10/23/16 20:00 100 Nasal Cannula 6.00 10/23/16 18:00 100 10/23/16 17:00 94 Nasal Cannula 6.00 I/O 10/23/16 10/23/16 10/23/16 10/24/16 10/24/16 10/24/16 07:00 15:00 23:00 07:00 15:00 23:00 Intake Total 380 ml 1191 ml 728 ml 121 ml 900 ml Output Total 300 ml 700 ml 1450 ml 400 ml 975 ml Balance 80 ml 491 ml -722 ml -279 ml -75 ml Intake Oral 100 ml 720 ml 300 ml 800 ml IV Total 280 ml 471 ml 428 ml 121 ml 100 ml Output Urine Total 300 ml 700 ml 1450 ml 400 ml 975 ml # Bowel Movements 0 4 1 0 Result Diagram: 10/24/1642810/24/16428 Objective Remarks GENERAL: Resting in bed, on NC. CARDIOVASCULAR: Normal sinus rhythm. S1, S2. No S4. Without murmur. RESPIRATORY: Distant lung sounds. GASTROINTESTINAL: Abdomen soft, non-tender, scaphoid. MUSCULOSKELETAL: Negative for any lower extremity edema.. No obvious deformities. Positive for muscle spasms in the calf. NEUROLOGICAL: Awake and alert. No obvious cranial nerve deficits. Motor grossly within normal limits. Five out of 5 muscle strength in the arms and legs. Normal speech. PSYCHIATRIC: Appropriate mood and affect; insight and judgment normal. Medications and IVs Current Medications Albuterol/ Ipratropium (Duoneb Neb) 3 ampule STK-MED ONCE .ROUTE ; Start at 14:08; Stop 10/19/16 at 14:09; Status DC Sodium Chloride (NS Flush) 2 ml UNSCH PRN IVF FLUSH AFTER USING IV ACCESS; Start 10/19/16 at 14:15; Stop 10/21/16 at 22:04; Status DC Methylprednisolone Sodium Succinate (SoluMEDROL INJ) 125 mg ONCE ONCE IVP Last administered on 10/19/16 14:26; Start 10/19/16 at 14:15; Stop 10/19/16 at 14:16; Status DC Albuterol/ Ipratropium (Duoneb Neb) 1 ampule Q15M INH Last administered on 10/19 14:36; Start 10/19/16 at 14:15; Stop 10/19/16 at 14:46; Status DC Furosemide (Lasix Inj) 40 mg ONCE ONCE IV PUSH Last administered on 10/19/16 16:19; Start 10/19/16 at 16:00; Stop 10/19/16 at 16:01; Status DC Aspirin (Ecotrin Ec) 81 mg DAILY PO Last administered on 10/24/16 08:08; Start 10/20/16 at 09:00 Budesonide/ Formoterol Fumarate (Symbicort 160-4.5 Inh) 2 puff Q12HR INH Last administered on 10/24/16 08:09; Start 10/19/16 at 21:00 Metoprolol Tartrate (Lopressor) 50 mg BID PO Last administered on 10/21/16 10: 09; Start 10/19/16 at 21:00; Stop 10/21/16 at 14:31; Status DC Tiotropium [place] (Spiriva Inh) 18 mcg DAILY INH Last administered on 11:12; Start 10/20/16 at 09:00; Stop 10/21/16 at 10:10; Status DC Multivitamins 1 tab 1 tab DAILY PO Last administered on 10/24/16 08:08; Start 10/20/16 at 09:00 Sodium Chloride (NS 1000 ml Inj) 1,000 ml @ 84 mls/hr [id number] IV Last administered on 10/21/16 05:37; Start 10/19/16 at 17:38; Stop 10/21/16 at 10:03 ; Status DC Sodium Chloride (NS Flush) 2 ml UNSCH PRN IV FLUSH FLUSH AFTER USING IV ACCESS ; Start 10/19/16 at 17:45 Sodium Chloride (NS Flush) 2 ml BID IV FLUSH Last administered on 10/24/16 08: 10; Start 10/19/16 at 21:00 Acetaminophen (Tylenol) 650 mg Q6H PRN PO FEVER >101F Last administered on 10/22 14:03; Start 10/19/16 at 17:45 Acetaminophen/ Hydrocodone Bitart ([place] 5-325 Mg) 1 tab Q4H PRN PO PAIN SCALE 1 TO 5 Last administered on 10/24/16 10:50; Start 10/19/16 at 17:45 Morphine Sulfate (Morphine Inj) 2 mg Q2H PRN IV PAIN SCALE 6 TO 10; Start 10/19 at 17:45 Pantoprazole Sodium (Protonix Inj) 40 mg DAILY IV Last administered on 08:09; Start 10/20/16 at 09:00 Artificial Tears (Tears Naturale Opth Soln) 1 drop TID EACH EYE Last administered on 10/24/16 12:24; Start 10/19/16 at 18:00 Ondansetron HCl (Zofran Inj) 4 mg Q6H PRN IV NAUSEA OR VOMITING; Start at 17:45 Albuterol/ Ipratropium (Duoneb Neb) 1 ampule Q4HR NEB INH Last administered on 10/20/16 11:04; Start 10/19/16 at 20:00; Stop 10/20/16 at 12:17; Status DC Albuterol Sulfate (Albuterol Neb) 2.5 mg Q2HR NEB PRN INH SOB/WHEEZING; Start 10/19/16 at 17:45 Enoxaparin Sodium (Lovenox Inj) 40 mg Q24H SQ Last administered on 10/22/16 20 :59; Start 10/19/16 at 21:00 Miscellaneous Information 1 [id number] XX Last administered on 10/19/16 17:45; Start 10/19/16 at 17:45 Chlorhexidine Gluconate (Chlorhexidine 2% Cloth) 3 pack Taper DAILY@04 TOP Last administered on 10/19/16 21:33; Start 10/20/16 at 04:00; Stop 10/21/16 at 10:03; Status DC Chlorhexidine Gluconate (Chlorhexidine 2% Cloth) 3 pack UNSCH PRN TOP HYGIENIC CARE; Start 10/19/16 at 17:45; Stop 10/21/16 at 10:03; Status DC Senna/Docusate Sodium (Alyssa-Colace) 1 tab BID PO Last administered on 08:09; Start 10/19/16 at 21:00 Magnesium Hydroxide (Milk Of Magnesia Liq) 30 ml Q12H PRN PO MILD - MODERATE CONSTIPATION Last administered on 10/21/16 11:40; Start 10/19/16 at 17:45 Sennosides (Senokot) 17.2 mg Q12H PRN PO MODERATE - SEVERE CONSTIPATION; Start 10/19/16 at 17:45 Bisacodyl (Dulcolax Supp) 10 mg DAILY PRN RECTAL SEVERE CONSITIPATION; Start at 17:45 Lactulose 30 ml 30 ml DAILY PRN PO SEVERE CONSITIPATION Last administered on 16:16; Start 10/19/16 at 17:45 Cefepime HCl 2000 mg/Sodium Chloride 100 ml @ 200 mls/hr Q8H IV Last administered on 10/24/16 10:07; Start 10/19/16 at 19:00 Azithromycin 500 mg/Sodium Chloride 250 ml @ 250 mls/hr Q24H IV Last administered on 10/23/16 20:28; Start 10/19/16 at 20:00 Pharmacy Profile Note (Vancomycin Consult Pharmacy) 0 ml @ 0 mls/hr UNSCH OTHER ; Start 10/19/16 at 17:45; Stop 10/23/16 at 15:49; Status DC Methylprednisolone Sodium Succinate 40 mg 40 mg Q12H IV Last administered on 03:40; Start 10/20/16 at 02:00; Stop 10/20/16 at 12:17; Status DC Vancomycin HCl/ Sodium Chloride (Vancomycin Inj/ NS 250 ml Inj) 257.5 ml @ 250 mls/hr Q12H IV Last administered on 10/21/16 10:08; Start 10/19/16 at 20:00; Stop 10/21/16 at 11:01; Status DC Miscellaneous Information SPECIFIC LAB TO BE DRAWN:VANCO TROUGH DATE TO... ONCE ONCE .XX ; Start 10/21/16 at 07:45; Stop 10/21/16 at 07:46; Status DC Ascorbic Acid (Vitamin C) 250 mg DAILY PO Last administered on 10/24/16 08:09 ; Start 10/20/16 at 09:00 Acetazolamide Sodium (Diamox Inj) 250 mg ONCE ONCE IV PUSH ; Start 10/20/16 at 07:00; Stop 10/20/16 at 07:01; Status UNV Miscellaneous (Pill Splitter) 1 ea UNSCH PRN OTHER SEE LABEL COMMENTS; Start at 07:00 Albuterol/ Ipratropium (Duoneb Neb) 1 ampule Q6HR NEB NEB Last administered on 10/24/16 10:20; Start 10/20/16 at 16:00; Stop 10/24/16 at 16:00; Status DC Methylprednisolone Sodium Succinate (SoluMEDROL INJ) 40 mg Q6HR IV Last administered on 10/24/16 12:00; Start 10/20/16 at 18:00 Lorazepam 0.5 mg 0.5 mg ONCE ONCE IV PUSH Last administered on 10/20/16 23:03 ; Start 10/20/16 at 22:15; Stop 10/20/16 at 22:16; Status DC Vancomycin HCl/ Sodium Chloride (Vancomycin Inj/ NS 250 ml Inj) 257.5 ml @ 250 mls/hr Q8H IV Last administered on 10/23/16 09:37; Start 10/21/16 at 18:00; Stop 10/23/16 at 12:40; Status DC Miscellaneous Information SPECIFIC LAB TO BE DRAWN:VANCO TROUGH DATE TO... ONCE ONCE .XX ; Start 10/22/16 at 09:45; Stop 10/22/16 at 09:46; Status DC Furosemide (Lasix Inj) 40 mg BID@,18 IV PUSH Last administered on 10/22/16 08:34; Start 10/21/16 at 11:00; Stop 10/22/16 at 12:25; Status DC Diltiazem HCl (Cardizem Cd) 180 mg DAILY PO Last administered on 10/24/16 08: 08; Start 10/22/16 at 09:00 Furosemide (Lasix Inj) 20 mg DAILY IV PUSH Last administered on 10/21/16 15:38 ; Start 10/21/16 at 15:00; Stop 10/22/16 at 07:48; Status DC Potassium Chloride (KCl) 20 meq DAILY PO Last administered on 10/24/16 08:08; Start 10/22/16 at 09:00 Lorazepam (Ativan Inj) 1 mg HS PRN IV ANXIETY Last administered on 10/23/16 21 :30; Start 10/21/16 at 22:15 Miscellaneous Information SPECIFIC LAB TO BE DRAWN:VANCO TROUGH DATE TO... ONCE ONCE .XX ; Start 10/23/16 at 09:45; Stop 10/23/16 at 09:46; Status DC Furosemide (Lasix Inj) 20 mg DAILY IV PUSH ; Start 10/23/16 at 09:00; Stop 10/23 at 09:00; Status DC Furosemide (Lasix Inj) 20 mg BID IV PUSH Last administered on 10/24/16 08:10; Start 10/23/16 at 09:00; Stop 10/24/16 at 09:51; Status DC Lorazepam (Ativan) 0.5 mg ONCE ONCE PO ; Start 10/22/16 at 17:45; Stop at 17:48; Status DC Miscellaneous Information SPECIFIC LAB TO BE PRABHU... ONCE ONCE .XX ; Start 10/23 at 17:45; Stop 10/23/16 at 17:46; Status Cancel Lorazepam (Ativan) 0.25 mg Q12HR PRN PO anxiety; Start 10/23/16 at 13:30 Miscellaneous (Pill Splitter) 1 ea UNSCH PRN OTHER SEE LABEL COMMENTS; Start at 13:45; Status Cancel Furosemide (Lasix) 20 mg DAILY PO ; Start 10/25/16 at 09:00 Cyclobenzaprine HCl (Flexeril) 5 mg ONCE ONCE PO Last administered on t 12:45; Start 10/24/16 at 12:45; Stop 10/24/16 at 12:46; Status DC Cyclobenzaprine HCl (Flexeril) 5 mg Q8H PRN PO muscle spasm; Start 10/24/16 at 12:45 A/P Problem List: (1) Acute exacerbation of chronic obstructive pulmonary disease (COPD) ICD Code: J44.1 Status: Acute (2) Atypical pneumonia ICD Code: J18.9 Status: Acute (3) Chronic respiratory failure with hypoxia ICD Code: J96.11 Status: Chronic (4) Hypertension ICD Code: I10 Status: Acute (5) CAD (coronary artery disease) ICD Code: I25.10 Status: Acute (6) Vertical strabismus, left eye ICD Code: H50.22 Status: Acute (7) Osteoarthritis ICD Code: M19.90 Status: Acute (8) History of myocardial infarction ICD Code: I25.2 Status: Acute Assessment and Plan Acute on chronic hypercarbic respiratory failure/ COPD History of obstructive lung disease. No smoking history. Alpha-1 anti-trypsin workup negative. Pulmonology consult appreciated. CT chest showed: Moderate- sized bilateral pleural effusions with adjacent compressive atelectasis and/or infiltrates; Diffuse ground-glass densities within the aerated portions of both lungs raising the possibility of pulmonary vascular congestion; Stable mediastinal lymphadenopathy which is nonspecific; Stable calcified granuloma within the left lower lobe. - oxygen as needed to keep saturations around 90%. - follow up with pulmonology. - Bronchodilator therapy every 6 hours and albuterol every 2 hours when necessary. Hold Spiriva. - Continue Symbicort 160/4.5 2 puffs twice a day. - continue with management per organ installer. -COPD seems severe with multiple admissions to the hospital. ? Poor prognosis. -Improving patients now on nasal cannula. Acute grade 1 diastolic CHF/ Coronary artery disease Echo with normal EF, grade 1 diastolic CHF. EKG reveals no signs of acute ST elevation; There is left axis deviation/mild LVH appreciated. Trops flat. - Dance Instructor was consulted. Recommend to discontinue metoprolol due to severe COPD which was DC'd yesterday and to start patient on calcium channel miguel angel. Patient is on Cardizem 180 mg by mouth daily. - Dance Instructor does not think patient is CHF. Dance Instructor discontinue Lasix. Lasix was restarted by organ installer at 20 mg IV twice a day. -Patient is urinating every 25 minutes so we will discontinue Lasix. Will resume Lasix at 20 mg by mouth daily. Normocytic anemia/ Thrombocytopenia Likely partially dilutional. - Monitor trends. CAP Previously on ciprofloxacin and Terramycin aerosols twice a day. Sputum culture with normal thalia. - continue cefepime/Zithromax and vancomycin for community-acquired pneumonia. - Like cultures and sputum cultures are negative. Muscle spasms -Most likely secondary to dehydration from severe diuresing. -Lasix was changed. -Will give Flexeril when necessary. Hypernatremia The pt was on NS. - d/c NS. - monitor BMP while diuresing. Deconditioned -Will consult physical therapist. PPx: SCD/Lovenox subcutaneous Discharge Planning Patient so far is doing well on nasal cannula. Will continue to monitor in the [facility] and if she continues to well she can be transferred to the floor tomorrow. Problem Qualifiers (1) Hypertension: Qualified Code: I10 - Essential hypertension (2) CAD (coronary artery disease): Qualified Code: I25.10 - Coronary artery disease involving [place] heart without angina pectoris, unspecified vessel or lesion type (3) Osteoarthritis: Qualified Code: M19.90 - Osteoarthritis, unspecified osteoarthritis type, unspecified site Elvia Hair MD Oct 24, 2016 16:07
[2016-10-24] MEDS: RESP: ALBUTEROL 2.5 MG/IPRATROPIUM 0.5 MG NEB (SCH) INH (20:06)
[2016-10-24] MEDS: ENOXAPARIN SODIUM 40 MG/0.4 ML SYRINGE SQ SCH (21:00)
[2016-10-24] MEDS: AZITHROMYCIN INJ 500 MG in SODIUM CHLOR 0.9% 250 ML INJ 250 ML IV SCH (21:29)
[2016-10-25] VITALS (19 sets, daily range): BP systolic 143–167; BP diastolic 67–91; PULSE 83–116; RESP 19–42; TEMP 97.9–98.5; O2SAT 91–100
[2016-10-25] MEDS: CEFEPIME INJ 2,000 MG in SODIUM CHLORIDE 0.9% INJ 100 ML IV SCH ×3 (04:02→20:53)
[2016-10-25 04:53] LABS: POTASSIUM 4.4 MEQ/L (3.5-5.1)
[2016-10-25 05:04] LABS: CALCIUM-PROTEIN CORRECTED 8.4 MG/DL (8.5-10.1)
[2016-10-25] MEDS: RESP: ALBUTEROL 2.5 MG/IPRATROPIUM 0.5 MG NEB (SCH) INH ×4 (07:57→19:56)
[2016-10-25] MEDS: MULTIVITAMIN TAB PO SCH (08:47)
[2016-10-25] MEDS: FUROSEMIDE 20 MG TAB PO SCH (08:47)
[2016-10-25] MEDS: PANTOPRAZOLE SODIUM 40 MG VIAL IV SCH (08:47)
[2016-10-25] MEDS: DOCUSATE SODIUM 50 MG/SENNA 8.6 MG TAB PO SCH ×2 (08:47→20:55)
[2016-10-25] MEDS: methylPREDNISolone SOD SUCC 40 MG/1 ML VIAL IV SCH ×2 (08:47→20:53)
[2016-10-25] MEDS: SODIUM CHLORIDE 0.9% FLUSH 10 ML FLUSH IV FLUSH SCH ×2 (08:48→20:55)
[2016-10-25] MEDS: ASCORBIC ACID 500 MG TAB PO SCH (08:48)
[2016-10-25] MEDS: DILTIAZEM-CD 180 MG CAP ER PO SCH (08:48)
[2016-10-25] MEDS: BUDESONIDE-FORMOTEROL 160/4.5 MCG INHALER INH SCH ×2 (08:48→20:55)
[2016-10-25] MEDS: ASPIRIN EC 81 MG TABEC PO SCH (08:48)
[2016-10-25] MEDS: POTASSIUM CHLORIDE 20 MEQ CONTROLLED RELEASE TAB PO SCH (08:48)
[2016-10-25] MEDS: ARTIFICIAL TEARS OPTH SOLN 15 ML BTL EACH EYE SCH ×3 (08:48→18:00)
[2016-10-25] MEDS: ACETAMINOPHEN 325 MG TAB PO PRN ×2 (08:58→16:54)
--- NOTE | 2016-10-25 10:50 | HHI.PR ---
Subjective Remarks Pt denies any CP/N/V/ SOB much improved. at bedside. Pt apparently yesterday night was a bit confused thought her dog was in the room. Discussed w RN, no concerns at this time. Objective Vitals Vital Signs Date Time Temp Pulse Resp B/P Pulse Ox O2 Delivery O2 Flow Rate FiO2 10/25/16 10:00 98 10/25/16 08:00 93 10/25/16 08:00 99 Nasal Cannula 4.00 10/25/16 08:00 98.3 86 24 165/83 99 10/25/16 07:58 97 Nasal Cannula 4.00 10/25/16 06:00 83 10/25/16 04:00 95 Nasal Cannula 4.00 Bi-Pap 10/25/16 04:00 84 10/25/16 04:00 98.1 84 20 166/80 95 10/25/16 02:00 86 10/25/16 00:00 96 Nasal Cannula 4.00 Bi-Pap 10/25/16 00:00 85 10/25/16 00:00 98.5 99 20 152/72 94 10/24/16 22:00 99 10/24/16 20:05 96 Nasal Cannula 5.00 10/24/16 20:00 91 10/24/16 20:00 97 Nasal Cannula 4.00 Bi-Pap 10/24/16 20:00 98.1 91 20 154/72 97 10/24/16 18:00 96 10/24/16 16:00 86 10/24/16 16:00 98.4 88 20 143/65 98 10/24/16 16:00 95 Nasal Cannula 4.00 Bi-Pap 10/24/16 14:00 99 10/24/16 12:00 98.4 98 20 141/62 94 10/24/16 12:00 100 10/24/16 12:00 95 Nasal Cannula 4.00 Bi-Pap I/O 10/24/16 10/24/16 10/24/16 10/25/16 10/25/16 10/25/16 06:59 14:59 22:59 06:59 14:59 22:59 Intake Total 121 ml 900 ml 549 ml 98 ml Output Total 400 ml 975 ml 400 ml 600 ml Balance -279 ml -75 ml 149 ml -502 ml Intake Oral 800 ml 200 ml IV Total 121 ml 100 ml 349 ml 98 ml Output Urine Total 400 ml 975 ml 400 ml 600 ml # Bowel Movements 0 0 0 Result Diagram: 10/24/16 0429 10/25/16 0336 Imaging Last Impressions Chest X-Ray 10/22/16 0600 Signed Impressions: Service Date/Time: Saturday, October 22, 2016 02:51 - CONCLUSION: No significant interval change. Ajit Luna MD Chest CT 10/20/16 0000 Signed Impressions: Service Date/Time: Thursday, October 20, 2016 16:55 - CONCLUSION: 1. Moderate- sized bilateral pleural effusions with adjacent compressive atelectasis and/or infiltrates. Clinical correlation is recommended. 2. Diffuse ground-glass densities within the aerated portions of both lungs raising the possibility of pulmonary vascular congestion. 3. Cardiomegaly. 4. Stable mediastinal lymphadenopathy which is nonspecific. 5. Degenerative changes and scoliosis of the thoracic spine. 6. Stable calcified granuloma within the left lower lobe. Shaw Mancini MD Lower Extremity Ultrasound 10/19/16 0000 Signed Impressions: Service Date/Time: October 18:51 - CONCLUSION: No DVT of either lower extremity. Negro Rodrigez MD Objective Remarks GENERAL: Resting in bed, on NC. CARDIOVASCULAR: Normal sinus rhythm. Without murmur. RESPIRATORY: Distant lung sounds. faint expiratory wheezes GASTROINTESTINAL: Abdomen soft, non-tender, scaphoid. MUSCULOSKELETAL: Negative for any lower extremity edema.. No obvious deformities. Positive for muscle spasms in the calf. NEUROLOGICAL: Awake and alert. No obvious cranial nerve deficits. Normal speech. knows where she is, year and month, confused about the day, recognizes her A/P Problem List: (1) Acute exacerbation of chronic obstructive pulmonary disease (COPD) ICD Code: J44.1 Status: Acute (2) Atypical pneumonia ICD Code: J18.9 Status: Acute (3) Chronic respiratory failure with hypoxia ICD Code: J96.11 Status: Chronic (4) Hypertension ICD Code: I10 Status: Acute (5) CAD (coronary artery disease) ICD Code: I25.10 Status: Acute (6) Vertical strabismus, left eye ICD Code: H50.22 Status: Acute (7) Osteoarthritis ICD Code: M19.90 Status: Acute (8) History of myocardial infarction ICD Code: I25.2 Status: Acute Assessment and Plan Acute on chronic hypercarbic respiratory failure/ COPD History of obstructive lung disease. No smoking history. Alpha-1 anti-trypsin workup negative. Pulmonology consult appreciated. CT chest showed: Moderate- sized bilateral pleural effusions with adjacent compressive atelectasis and/or infiltrates; Diffuse ground-glass densities within the aerated portions of both lungs raising the possibility of pulmonary vascular congestion; Stable mediastinal lymphadenopathy which is nonspecific; Stable calcified granuloma within the left lower lobe. - oxygen as needed to keep saturations around 90% and Bipap as needed - Dr. Knapp, pulmonology following. Pt on duoneb QID, symbicort and solu-medrol IV BID. also on cefepime and azithro - continue with management per machined parts metal sprayer. -COPD seems severe with multiple admissions to the hospital. ? Poor prognosis. -currently on nasal cannula. Acute grade 1 diastolic CHF/ Coronary artery disease Echo with normal EF, grade 1 diastolic CHF. EKG reveals no signs of acute ST elevation; There is left axis deviation/mild LVH appreciated. Trops flat. - Assistant Auditor was consulted. Recommended to discontinue metoprolol due to severe COPD which was done and started patient on a calcium channel miguel angel ( Cardizem 180 mg by mouth daily). - Assistant Auditor does not think patient is CHF. Assistant Auditor discontinue Lasix. Lasix was restarted by machined parts metal sprayer at 20 mg IV twice a day but now on lasix 20mg po daily. Normocytic anemia/ Thrombocytopenia Likely partially dilutional. - Monitor trends. CAP Previously on ciprofloxacin and Terramycin aerosols twice a day. Sputum culture with normal thalia. - continue cefepime/Zithromax. s/p vancomycin (discontinued on 10/23/16) - blood cultures and sputum cultures are negative. Muscle spasms -Most likely secondary to dehydration from severe diuresing. -Lasix was changed. -on Flexeril when necessary. hypocalcemia noted: replace w tums, monitor Hypernatremia The pt was on NS. resolved. - off NS. - sodium level stable at 141 (10/25/16) Deconditioned - physical therapist consulted. thrombocytopenia plts 155 on admission now down to 72. check heparin induced plt ab. monitor PPx: SCD/Lovenox was held due to thrombocytopenia Discharge Planning transfer to a regular floor. continue to wean steroids Problem Qualifiers (1) Hypertension: Qualified Code: I10 - Essential hypertension (2) CAD (coronary artery disease): Qualified Code: I25.10 - Coronary artery disease involving [place] heart without angina pectoris, unspecified vessel or lesion type (3) Osteoarthritis: Qualified Code: M19.90 - Osteoarthritis, unspecified osteoarthritis type, unspecified site Anjali Casas MD Oct 25, 2016 10:50
[2016-10-25] MEDS ORDERED: CALCIUM CARBONATE 500 MG CHEWABLE TAB CHEW ONE (11:15)
[2016-10-25] MEDS: CALCIUM CARBONATE 500 MG CHEWABLE TAB CHEW SCH (20:52)
[2016-10-25] MEDS: AZITHROMYCIN INJ 500 MG in SODIUM CHLOR 0.9% 250 ML INJ 250 ML IV SCH (20:52)
[2016-10-25] MEDS: ENOXAPARIN SODIUM 40 MG/0.4 ML SYRINGE SQ SCH (20:57)
[2016-10-26] VITALS (41 sets, daily range): BP systolic 123–181; BP diastolic 60–100; PULSE 87–114; RESP 17–37; TEMP 97.5–99.1; O2SAT 81–100
[2016-10-26] MEDS: ENALAPRILAT 2.5 MG/2 ML VIAL IV PUSH PRN ×2 (05:45→08:44)
[2016-10-26] MEDS: CEFEPIME INJ 2,000 MG in SODIUM CHLORIDE 0.9% INJ 100 ML IV SCH ×3 (05:45→18:20)
[2016-10-26 06:03] LABS: AUTOMATED NEUTROPHIL # 7.3 TH/MM3 (1.8-7.7); HEMATOCRIT 30.3 % (35.0-46.0); LYMPH % 4.9 % (9.0-44.0); LYMPHOCYTE # 0.4 TH/MM3 (1.0-4.8); MEAN CELL VOLUME 86.1 FL (80.0-100.0); MEAN CORPUSCULAR HEMOGLOBIN 27.6 PG (27.0-34.0); MONO % 3.3 % (0.0-8.0); NEUT % 91.8 % (16.0-70.0); PLATELET COUNT 90 TH/MM3 (150-450); RED BLOOD COUNT 3.52 MIL/MM3 (4.00-5.30); RED CELL DISTRIBUTION WIDTH 15.7 % (11.6-17.2); WHITE BLOOD COUNT 7.9 TH/MM3 (4.0-11.0)
[2016-10-26 06:12] LABS: HEMO FLAGS AUTO DIFF
[2016-10-26] MEDS: RESP: ALBUTEROL 2.5 MG/IPRATROPIUM 0.5 MG NEB (SCH) INH ×4 (07:42→20:02)
[2016-10-26 08:00] LABS: SCAN/DIFF AUTO DIFF CONFIRMED
[2016-10-26] MEDS: ASCORBIC ACID 500 MG TAB PO SCH (08:32)
[2016-10-26] MEDS: FUROSEMIDE 20 MG TAB PO SCH (08:32)
[2016-10-26] MEDS: CALCIUM CARBONATE 500 MG CHEWABLE TAB CHEW SCH ×2 (08:32→20:28)
[2016-10-26] MEDS: MULTIVITAMIN TAB PO SCH (08:32)
[2016-10-26] MEDS: ASPIRIN EC 81 MG TABEC PO SCH (08:32)
[2016-10-26] MEDS: methylPREDNISolone SOD SUCC 40 MG/1 ML VIAL IV SCH (08:33)
[2016-10-26] MEDS: POTASSIUM CHLORIDE 20 MEQ CONTROLLED RELEASE TAB PO SCH (08:33)
[2016-10-26] MEDS: PANTOPRAZOLE SODIUM 40 MG VIAL IV SCH (08:33)
[2016-10-26] MEDS: DILTIAZEM-CD 180 MG CAP ER PO SCH (08:34)
[2016-10-26] MEDS: DOCUSATE SODIUM 50 MG/SENNA 8.6 MG TAB PO SCH ×2 (08:34→20:29)
[2016-10-26] MEDS: ARTIFICIAL TEARS OPTH SOLN 15 ML BTL EACH EYE SCH ×3 (08:44→18:00)
--- NOTE | 2016-10-26 08:55 | HHI.PR ---
Subjective Remarks Pt states SOB is somewhat better today. She has been using IS and been coughing up some more. denies any CP/SOB/N/V. still complaining of burning sensation on her legs. the pain has improved some but still present. about to eat breakfast at bedside, not opposed for her to go to rehab but concerned about financial component. per , pt still confused at times, still talking about her dog and at times laughing about "non laughable things". Objective Vitals Vital Signs Date Time Temp Pulse Resp B/P Pulse Ox O2 Delivery O2 Flow Rate FiO2 10/26/16 07:42 98 Nasal Cannula 4.00 10/26/16 05:50 95 21 166/82 97 10/26/16 05:50 95 10/26/16 05:09 102 23 164/81 90 10/26/16 05:09 102 10/26/16 05:00 105 10/26/16 05:00 105 21 177/100 98 10/26/16 04:00 98.8 96 23 172/82 97 10/26/16 04:00 96 10/26/16 04:00 97 Nasal Cannula 4.00 10/26/16 03:00 90 17 167/80 98 10/26/16 03:00 90 10/26/16 02:00 98 27 174/83 90 10/26/16 02:00 98 10/26/16 01:00 101 21 164/77 96 10/26/16 01:00 101 10/26/16 00:00 98 Nasal Cannula 4.00 10/26/16 00:00 98.7 92 19 161/81 98 10/26/16 00:00 92 10/25/16 23:30 98 Nasal Cannula 4.00 10/25/16 23:00 94 10/25/16 23:00 94 28 167/91 95 10/25/16 22:00 101 10/25/16 22:00 101 42 157/80 94 10/25/16 21:24 96 45 10/25/16 21:00 100 22 155/74 96 10/25/16 21:00 100 10/25/16 20:00 105 10/25/16 20:00 99 Nasal Cannula 4.00 10/25/16 20:00 98.5 105 20 157/83 99 10/25/16 19:56 97 Nasal Cannula 4.00 10/25/16 19:00 102 10/25/16 19:00 102 25 150/76 95 10/25/16 18:00 95 19 147/67 97 10/25/16 18:00 95 10/25/16 17:00 101 10/25/16 17:00 101 22 143/67 98 10/25/16 16:00 93 Nasal Cannula 4.00 10/25/16 16:00 97.9 106 22 147/70 100 10/25/16 16:00 116 10/25/16 12:00 93 Nasal Cannula 4.00 10/25/16 12:00 116 10/25/16 12:00 98.1 114 24 147/68 91 10/25/16 10:00 98 I/O 10/25/16 10/25/16 10/25/16 10/26/16 10/26/16 10/26/16 07:00 15:00 23:00 07:00 15:00 23:00 Intake Total 98 ml 900 ml 682 ml 276 ml Output Total 600 ml 800 ml Balance -502 ml 100 ml 682 ml 276 ml Intake Oral 800 ml 480 ml 120 ml IV Total 98 ml 100 ml 202 ml 156 ml Output Urine Total 600 ml 800 ml # Voids 2 7 # Bowel Movements 0 1 1 0 Result Diagram: 10/26/16 0527 10/25/16 0336 Imaging Last Impressions Chest X-Ray 10/22/16 0600 Signed Impressions: Service Date/Time: Saturday, October 22, 2016 02:51 - CONCLUSION: No significant interval change. Ajit Luna MD Chest CT 10/20/16 0000 Signed Impressions: Service Date/Time: Thursday, October 20, 2016 16:55 - CONCLUSION: 1. Moderate- sized bilateral pleural effusions with adjacent compressive atelectasis and/or infiltrates. Clinical correlation is recommended. 2. Diffuse ground-glass densities within the aerated portions of both lungs raising the possibility of pulmonary vascular congestion. 3. Cardiomegaly. 4. Stable mediastinal lymphadenopathy which is nonspecific. 5. Degenerative changes and scoliosis of the thoracic spine. 6. Stable calcified granuloma within the left lower lobe. Shaw Mancini MD Lower Extremity Ultrasound 10/19/16 0000 Signed Impressions: Service Date/Time: October 18:51 - CONCLUSION: No DVT of either lower extremity. Negro Rodrigez MD Objective Remarks GENERAL: Resting in bed, on NC. CARDIOVASCULAR: Normal sinus rhythm. Without murmur. RESPIRATORY: Distant lung sounds. faint expiratory wheezes GASTROINTESTINAL: Abdomen soft, non-tender, scaphoid. MUSCULOSKELETAL: Negative for any lower extremity edema.. No obvious deformities. NEUROLOGICAL: Awake and alert. No obvious cranial nerve deficits. Normal speech. answers questions appropriately A/P Problem List: (1) Acute exacerbation of chronic obstructive pulmonary disease (COPD) ICD Code: J44.1 Status: Acute (2) Atypical pneumonia ICD Code: J18.9 Status: Acute (3) Chronic respiratory failure with hypoxia ICD Code: J96.11 Status: Chronic (4) Hypertension ICD Code: I10 Status: Acute (5) CAD (coronary artery disease) ICD Code: I25.10 Status: Acute (6) Vertical strabismus, left eye ICD Code: H50.22 Status: Acute (7) Osteoarthritis ICD Code: M19.90 Status: Acute (8) History of myocardial infarction ICD Code: I25.2 Status: Acute Assessment and Plan Acute on chronic hypercarbic respiratory failure/ COPD History of obstructive lung disease. No smoking history. Alpha-1 anti-trypsin workup negative. Pulmonology consult appreciated. CT chest showed: Moderate- sized bilateral pleural effusions with adjacent compressive atelectasis and/or infiltrates; Diffuse ground-glass densities within the aerated portions of both lungs raising the possibility of pulmonary vascular congestion; Stable mediastinal lymphadenopathy which is nonspecific; Stable calcified granuloma within the left lower lobe. - oxygen as needed to keep saturations around 90% and Bipap as needed - Dr. Knapp, pulmonology following. Pt on duoneb QID, symbicort and solu-medrol IV BID. also on cefepime and azithro - continue with management per assessment specialist. -COPD seems severe with multiple admissions to the hospital. ? Poor prognosis. -currently on nasal cannula. Acute grade 1 diastolic CHF/ Coronary artery disease Echo with normal EF, grade 1 diastolic CHF. EKG reveals no signs of acute ST elevation; There is left axis deviation/mild LVH appreciated. Trops flat. - Elevator Technician was consulted. Recommended to discontinue metoprolol due to severe COPD which was done and started patient on a calcium channel miguel angel ( Cardizem 180 mg by mouth daily). added lisinopril 20mg po daily due to elevated BP's - Elevator Technician does not think patient is CHF. Elevator Technician discontinue Lasix. Lasix was restarted by assessment specialist at 20 mg IV twice a day but now on lasix 20mg po daily. Normocytic anemia/ Thrombocytopenia plts 155 on admission now down to 72 yesterday now going up 90 today. checking heparin induced plt ab. monitor CAP Previously on ciprofloxacin and Terramycin aerosols twice a day. Sputum culture with normal thalia. - continue cefepime/Zithromax. s/p vancomycin (discontinued on 10/23/16) - blood cultures and sputum cultures are negative. Muscle spasms -Most likely secondary to dehydration from severe diuresing. -Lasix was changed. -on Flexeril when necessary. will add gabapentin 100mg po tid as i suspect there is a component of neuropathy hypocalcemia noted: replace w tums, monitor Hypernatremia The pt was on NS. resolved. - off NS. - sodium level stable at 141 (10/25/16) Deconditioned - physical therapist following. interested in rehab however concerned about the financial component. PPx: SCD/Lovenox was held due to thrombocytopenia Discharge Planning transfer to a regular floor. continue to wean steroids awaiting final recs from pul as well. CM to assist w d/c planning Problem Qualifiers (1) Hypertension: Qualified Code: I10 - Essential hypertension (2) CAD (coronary artery disease): Qualified Code: I25.10 - Coronary artery disease involving craig heart without angina pectoris, unspecified vessel or lesion type (3) Osteoarthritis: Qualified Code: M19.90 - Osteoarthritis, unspecified osteoarthritis type, unspecified site Anjali Casas MD Oct 26, 2016 08:54
[2016-10-26] MEDS: SODIUM CHLORIDE 0.9% FLUSH 10 ML FLUSH IV FLUSH SCH ×2 (09:00→20:29)
[2016-10-26] MEDS: LISINOPRIL 20 MG TAB PO SCH (09:00)
[2016-10-26] MEDS: GABAPENTIN 100 MG CAP PO SCH ×3 (09:00→18:00)
[2016-10-26] MEDS: BUDESONIDE-FORMOTEROL 160/4.5 MCG INHALER INH SCH ×2 (09:00→20:29)
[2016-10-26 12:48] LABS: BLOOD GAS BASE EXCESS 13.6 mmol/L (-2-2); BLOOD GAS CARBOXYHEMOGLOBIN 1.8 % (0-4); BLOOD GAS HCO3 39 mmol/L (22-26); BLOOD GAS O2 HGB SATURATION 95 % (90-100); BLOOD GAS OXYGEN CONTENT 13.8 Vol % (12.0-20.0); BLOOD GAS PCO2 60 mmHg (38-42); BLOOD GAS PO2 89 mmHg (61-120); BLOOD GAS TOTAL HGB 10.3 G/DL (12.0-16.0); CRITICAL VALUE YES; DRAW SITE RT RADIAL; LITER FLOW 3 L/M; NUMBER OF ARTERIAL PUNCTURES 1; OXYGEN DEVICE NASAL CANNULA; STAT NO; TEMP CORR TO 98.6; ULNAR PULSE Y
[2016-10-26] MEDS: ACETAMINOPHEN/HYDROcodone 325 MG/5 MG TAB PO PRN (14:14)
[2016-10-26] MEDS: LORazepam 0.5 MG TAB PO PRN (14:14)
[2016-10-26 14:32] LABS: HEPARIN AB OD 0.051 O.D. (0.000-0.300); HEPARIN INDUCED PLATELET AB NEGATIVE (NEGATIVE)
[2016-10-26] MEDS ORDERED: AZITHROMYCIN 250 MG TAB PO SCH (20:00)
[2016-10-26] MEDS: ENOXAPARIN SODIUM 40 MG/0.4 ML SYRINGE SQ SCH (20:29)
[2016-10-27] VITALS (12 sets, daily range): BP systolic 119–149; BP diastolic 55–74; PULSE 94–105; RESP 18–22; TEMP 97.7–99.3; O2SAT 91–100
[2016-10-27] MEDS: CEFEPIME INJ 2,000 MG in SODIUM CHLORIDE 0.9% INJ 100 ML IV SCH ×2 (03:09→12:35)
[2016-10-27 08:18] LABS: AUTOMATED NEUTROPHIL # 8.2 TH/MM3 (1.8-7.7); EOSINOPHIL # 0.1 TH/MM3 (0-0.4); EOSINOPHIL % 0.7 % (0.0-4.0); HEMATOCRIT 29.9 % (35.0-46.0); LYMPH % 10.1 % (9.0-44.0); MEAN CELL VOLUME 85.9 FL (80.0-100.0); MEAN CORPUSCULAR HEMOGLOBIN 27.8 PG (27.0-34.0); MEAN CORPUSCULAR HGB CONC 32.3 % (32.0-36.0); MONO % 7.2 % (0.0-8.0); PLATELET COUNT 93 TH/MM3 (150-450); RED BLOOD COUNT 3.48 MIL/MM3 (4.00-5.30); RED CELL DISTRIBUTION WIDTH 16.1 % (11.6-17.2)
[2016-10-27 08:21] LABS: HEMO FLAGS AUTO DIFF
[2016-10-27] MEDS: MULTIVITAMIN TAB PO SCH (08:23)
[2016-10-27] MEDS: LISINOPRIL 20 MG TAB PO SCH (08:23)
[2016-10-27] MEDS: ASCORBIC ACID 500 MG TAB PO SCH (08:23)
[2016-10-27] MEDS: CALCIUM CARBONATE 500 MG CHEWABLE TAB CHEW SCH ×2 (08:23→21:12)
[2016-10-27] MEDS: DOCUSATE SODIUM 50 MG/SENNA 8.6 MG TAB PO SCH ×2 (08:23→21:12)
[2016-10-27] MEDS: ASPIRIN EC 81 MG TABEC PO SCH (08:23)
[2016-10-27] MEDS: POTASSIUM CHLORIDE 20 MEQ CONTROLLED RELEASE TAB PO SCH (08:23)
[2016-10-27] MEDS: FUROSEMIDE 20 MG TAB PO SCH (08:23)
[2016-10-27] MEDS: DILTIAZEM-CD 180 MG CAP ER PO SCH (08:24)
[2016-10-27] MEDS: PANTOPRAZOLE SODIUM 40 MG VIAL IV SCH (08:24)
[2016-10-27] MEDS: ARTIFICIAL TEARS OPTH SOLN 15 ML BTL EACH EYE SCH ×3 (08:25→18:00)
[2016-10-27] MEDS: BUDESONIDE-FORMOTEROL 160/4.5 MCG INHALER INH SCH ×2 (08:25→21:15)
[2016-10-27] MEDS: RESP: ALBUTEROL 2.5 MG/IPRATROPIUM 0.5 MG NEB (SCH) INH ×4 (08:35→19:13)
[2016-10-27] MEDS: GABAPENTIN 100 MG CAP PO SCH ×3 (08:39→18:00)
[2016-10-27] MEDS: ACETAMINOPHEN 325 MG TAB PO PRN (08:52)
[2016-10-27] MEDS ORDERED: methylPREDNISolone SOD SUCC 40 MG/1 ML VIAL IV SCH (09:00)
[2016-10-27] MEDS: SODIUM CHLORIDE 0.9% FLUSH 10 ML FLUSH IV FLUSH SCH ×2 (09:00→21:13)
[2016-10-27 09:10] LABS: OVALOCYTES 1+ (NORMAL); SCAN/DIFF AUTO DIFF CONFIRMED
[2016-10-27 09:11] LABS: PLATELET ESTIMATE SMEAR LOW (NORMAL); PLATELET MORPHOLOGY NORMAL (NORMAL)
--- NOTE | 2016-10-27 10:52 | HHI.PR ---
Subjective Remarks Pt states she feels a little bit better today, Denies any CP/SOB/n/v. discussed w RN, pt required BiPAP overnight. She also had one 11 run of Vtach noted on TELE prior to removing Bipap but pt was asymptomatic. No other concerns at this time. Objective Vitals Vital Signs Date Time Temp Pulse Resp B/P Pulse Ox O2 Delivery O2 Flow Rate FiO2 10/27/16 08:39 98 Nasal Cannula 4.00 10/27/16 08:00 97.7 97 22 144/69 91 10/27/16 08:00 Bi-Pap 4.00 40 10/27/16 07:15 Bi-Pap 10/27/16 05:10 95 40 10/27/16 04:40 97.8 95 20 149/74 96 10/27/16 00:02 97 40 10/26/16 23:25 97.6 92 20 123/60 99 10/26/16 22:25 87 10/26/16 22:20 95 Nasal Cannula 4.00 10/26/16 22:00 97.5 95 20 167/78 93 10/26/16 21:00 101 21 154/72 90 10/26/16 20:02 98 Nasal Cannula 3.00 10/26/16 20:00 98 Nasal Cannula 4.00 10/26/16 20:00 98 Nasal Cannula 4.00 10/26/16 20:00 99 10/26/16 20:00 99.1 99 21 143/69 98 10/26/16 19:01 104 25 144/67 81 10/26/16 19:00 104 37 87 10/26/16 18:00 100 21 145/75 96 10/26/16 17:00 103 22 145/70 96 10/26/16 16:00 98.6 101 23 156/74 97 10/26/16 16:00 97 Nasal Cannula 4.00 10/26/16 16:00 96 10/26/16 12:15 110 23 98 10/26/16 12:00 97 Nasal Cannula 4.00 10/26/16 12:00 96 10/26/16 12:00 98.6 109 23 156/74 97 10/26/16 12:00 109 21 156/74 98 10/26/16 11:45 104 22 100 10/26/16 11:30 107 23 99 10/26/16 11:15 108 27 97 10/26/16 11:00 109 24 160/78 96 I/O 10/26/16 10/26/16 10/26/16 10/27/16 10/27/16 10/27/16 07:00 15:00 23:00 07:00 15:00 23:00 Intake Total 276 ml 470 ml 340 ml 250 ml Output Total 800 ml 950 ml Balance 276 ml -330 ml 340 ml -700 ml Intake Oral 120 ml 320 ml 240 ml 250 ml IV Total 156 ml 150 ml 100 ml Output Urine Total 800 ml 950 ml # Voids 7 6 1 4 # Bowel Movements 0 2 0 Result Diagram: 10/27/16 0615 10/25/16 0336 Imaging Last Impressions Chest X-Ray 10/22/16 0600 Signed Impressions: Service Date/Time: Saturday, October 22, 2016 02:51 - CONCLUSION: No significant interval change. Ajit Luna MD Chest CT 10/20/16 0000 Signed Impressions: Service Date/Time: Thursday, October 20, 2016 16:55 - CONCLUSION: 1. Moderate- sized bilateral pleural effusions with adjacent compressive atelectasis and/or infiltrates. Clinical correlation is recommended. 2. Diffuse ground-glass densities within the aerated portions of both lungs raising the possibility of pulmonary vascular congestion. 3. Cardiomegaly. 4. Stable mediastinal lymphadenopathy which is nonspecific. 5. Degenerative changes and scoliosis of the thoracic spine. 6. Stable calcified granuloma within the left lower lobe. Shaw Mancini MD Lower Extremity Ultrasound 10/19/16 0000 Signed Impressions: Service Date/Time: October 18:51 - CONCLUSION: No DVT of either lower extremity. Negro Rodrigez MD Objective Remarks GENERAL: Resting in bed, on NC. CARDIOVASCULAR: Normal sinus rhythm. Without murmur. RESPIRATORY: Distant lung sounds. faint expiratory wheezes but seemed improved compared to yesterday GASTROINTESTINAL: Abdomen soft, non-tender MUSCULOSKELETAL: Negative for any lower extremity edema.. No obvious deformities. NEUROLOGICAL: Awake and alert. No obvious cranial nerve deficits. Normal speech. answers questions appropriately A/P Problem List: (1) Acute exacerbation of chronic obstructive pulmonary disease (COPD) ICD Code: J44.1 Status: Acute (2) Atypical pneumonia ICD Code: J18.9 Status: Acute (3) Chronic respiratory failure with hypoxia ICD Code: J96.11 Status: Chronic (4) Hypertension ICD Code: I10 Status: Acute (5) CAD (coronary artery disease) ICD Code: I25.10 Status: Acute (6) Vertical strabismus, left eye ICD Code: H50.22 Status: Acute (7) Osteoarthritis ICD Code: M19.90 Status: Acute (8) History of myocardial infarction ICD Code: I25.2 Status: Acute Assessment and Plan Acute on chronic hypercarbic respiratory failure/ COPD History of obstructive lung disease. No smoking history. Alpha-1 anti-trypsin workup negative. Pulmonology consult appreciated. CT chest showed: Moderate- sized bilateral pleural effusions with adjacent compressive atelectasis and/or infiltrates; Diffuse ground-glass densities within the aerated portions of both lungs raising the possibility of pulmonary vascular congestion; Stable mediastinal lymphadenopathy which is nonspecific; Stable calcified granuloma within the left lower lobe. - oxygen as needed to keep saturations around 90% and Bipap as needed - Dr. Knapp, pulmonology following. Pt on duoneb QID, symbicort and solu-medrol IV BID. also on cefepime and azithro - continue with management per extension edger. -COPD is severe with multiple admissions to the hospital. ? Poor prognosis. -currently on nasal cannula. I discussed the case w Dr. Knapp yesterday who spoke w pt and her and they decided to switch her code status to DNR. In addition, he would like to try to wean pt off Bipap prior to transfer to SNF. Acute grade 1 diastolic CHF/ Coronary artery disease Echo with normal EF, grade 1 diastolic CHF. EKG reveals no signs of acute ST elevation; There is left axis deviation/mild LVH appreciated. Trops flat. - Firmware Developer was consulted. Recommended to discontinue metoprolol due to severe COPD which was done and started patient on a calcium channel miguel angel ( Cardizem 180 mg by mouth daily). added lisinopril 20mg po daily due to elevated BP's - Firmware Developer does not think patient is CHF. Firmware Developer discontinue Lasix. Lasix was restarted by extension edger at 20 mg IV twice a day but now on lasix 20mg po daily. -Pt did have a 11 run of Vtach on TELE and was asymptomatic, RN has placed a call to Dr. Nielsen regarding this. Pt currently asymptomatic Normocytic anemia/ Thrombocytopenia plts 155 on admission now down to 72 yesterday now going up 93 today. heparin induced plt ab neg CAP Previously on ciprofloxacin and Terramycin aerosols twice a day. Sputum culture with normal thalia. - continue cefepime/Zithromax. s/p vancomycin (discontinued on 10/23/16) - blood cultures and sputum cultures are negative. Muscle spasms -Most likely secondary to dehydration from severe diuresing. -Lasix was changed. -on Flexeril when necessary.on gabapentin 100mg po tid as i suspect there is a component of neuropathy hypocalcemia noted: replace w tums, monitor Hypernatremia The pt was on NS. resolved. - off NS. - sodium level stable at 141 (10/25/16) Deconditioned - physical therapist following. interested in rehab however concerned about the financial component. PPx: SCD/Lovenox Discharge Planning awaiting final recs from pul as well. Pt still required BiPAP last night CM to assist w d/c planning Problem Qualifiers (1) Hypertension: Qualified Code: I10 - Essential hypertension (2) CAD (coronary artery disease): Qualified Code: I25.10 - Coronary artery disease involving saxman heart without angina pectoris, unspecified vessel or lesion type (3) Osteoarthritis: Qualified Code: M19.90 - Osteoarthritis, unspecified osteoarthritis type, unspecified site Anjali Casas MD Oct 27, 2016 10:52
[2016-10-27] MEDS: predniSONE 20 MG TAB PO SCH (21:12)
[2016-10-27] MEDS: ENOXAPARIN SODIUM 40 MG/0.4 ML SYRINGE SQ SCH (21:13)
[2016-10-28] VITALS (9 sets, daily range): BP systolic 127–150; BP diastolic 57–70; PULSE 93–104; RESP 18–20; TEMP 98.4–98.8; O2SAT 90–100
[2016-10-28] MEDS: FUROSEMIDE 20 MG TAB PO SCH (07:35)
[2016-10-28] MEDS: MULTIVITAMIN TAB PO SCH (07:35)
[2016-10-28] MEDS: PANTOPRAZOLE SODIUM 40 MG VIAL IV SCH (07:35)
[2016-10-28] MEDS: ASPIRIN EC 81 MG TABEC PO SCH (07:35)
[2016-10-28] MEDS: ASCORBIC ACID 500 MG TAB PO SCH (07:36)
[2016-10-28] MEDS: GABAPENTIN 100 MG CAP PO SCH ×3 (07:36→16:29)
[2016-10-28] MEDS: CALCIUM CARBONATE 500 MG CHEWABLE TAB CHEW SCH ×2 (07:36→21:14)
[2016-10-28] MEDS: POTASSIUM CHLORIDE 20 MEQ CONTROLLED RELEASE TAB PO SCH (07:36)
[2016-10-28] MEDS: DOCUSATE SODIUM 50 MG/SENNA 8.6 MG TAB PO SCH ×2 (07:36→21:14)
[2016-10-28] MEDS: BUDESONIDE-FORMOTEROL 160/4.5 MCG INHALER INH SCH ×2 (07:36→21:00)
[2016-10-28] MEDS: LISINOPRIL 20 MG TAB PO SCH (07:36)
[2016-10-28] MEDS: DILTIAZEM-CD 180 MG CAP ER PO SCH (07:36)
[2016-10-28] MEDS: predniSONE 20 MG TAB PO SCH ×2 (07:36→21:14)
[2016-10-28] MEDS: ARTIFICIAL TEARS OPTH SOLN 15 ML BTL EACH EYE SCH ×3 (07:37→16:30)
[2016-10-28] MEDS: SODIUM CHLORIDE 0.9% FLUSH 10 ML FLUSH IV FLUSH SCH ×2 (07:37→21:15)
[2016-10-28] MEDS: RESP: ALBUTEROL 2.5 MG/IPRATROPIUM 0.5 MG NEB (SCH) INH ×4 (08:07→20:09)
[2016-10-28 08:55] LABS: BICARBONATE 43.2 MEQ/L (21.0-32.0); POTASSIUM 4.2 MEQ/L (3.5-5.1)
--- NOTE | 2016-10-28 11:03 | HHI.PR ---
Subjective Remarks sitting on the chair with no acute distress. on oxygen via [place]. has occasional cough. no fever. Objective Vitals Vital Signs Date Time Temp Pulse Resp B/P Pulse Ox O2 Delivery O2 Flow Rate FiO2 10/28/16 08:30 Nasal Cannula 2.00 Humidified 10/28/16 08:30 93 10/28/16 08:07 100 Nasal Cannula 2.00 10/28/16 08:00 98.7 96 18 150/70 95 10/28/16 04:55 98.4 93 18 149/70 94 10/28/16 04:00 Nasal Cannula 4.00 40 10/28/16 00:00 Nasal Cannula 4.00 40 10/27/16 23:35 99.3 97 18 146/65 97 10/27/16 20:22 98.6 94 18 132/64 95 10/27/16 20:00 97 10/27/16 20:00 Nasal Cannula 4.00 40 10/27/16 16:00 98.6 101 20 119/55 99 10/27/16 16:00 Nasal Cannula 4.00 40 10/27/16 15:31 100 Nasal Cannula 4.00 10/27/16 12:00 98.6 105 20 126/61 95 I/O 10/27/16 10/27/16 10/27/16 10/28/16 10/28/16 10/28/16 07:00 15:00 23:00 07:00 15:00 23:00 Intake Total 250 ml 600 ml 240 ml 120 ml Output Total 950 ml 0 ml Balance -700 ml 600 ml 240 ml 120 ml Intake Oral 250 ml 600 ml 240 ml 120 ml Output Urine Total 950 ml 0 ml # Voids 4 5 4 5 # Bowel Movements 0 4 1 0 Result Diagram: 10/27/16 0615 10/28/16 0717 Imaging Last Impressions Chest X-Ray 10/22/16 0600 Signed Impressions: Service Date/Time: Saturday, October 22, 2016 02:51 - CONCLUSION: No significant interval change. Ajit Luna MD Chest CT 10/20/16 0000 Signed Impressions: Service Date/Time: Thursday, October 20, 2016 16:55 - CONCLUSION: 1. Moderate- sized bilateral pleural effusions with adjacent compressive atelectasis and/or infiltrates. Clinical correlation is recommended. 2. Diffuse ground-glass densities within the aerated portions of both lungs raising the possibility of pulmonary vascular congestion. 3. Cardiomegaly. 4. Stable mediastinal lymphadenopathy which is nonspecific. 5. Degenerative changes and scoliosis of the thoracic spine. 6. Stable calcified granuloma within the left lower lobe. Shaw Mancini MD Lower Extremity Ultrasound 10/19/16 0000 Signed Impressions: Service Date/Time: October 18:51 - CONCLUSION: No DVT of either lower extremity. Negro Rodrigez MD Objective Remarks GENERAL: This is a well-nourished, well-developed patient, in no apparent distress. CARDIOVASCULAR: Regular rate and regular rhythm without murmurs, gallops, or rubs. RESPIRATORY: diminished air entry in bases GASTROINTESTINAL: Abdomen soft, non-tender, nondistended. Normal, active bowel sounds MUSCULOSKELETAL: Extremities without clubbing, cyanosis, or edema. NEURO: Alert & Oriented x4 to person, place, time, situation. Moves all ext x4 Procedures none Medications and IVs Current Medications Albuterol/ Ipratropium (Duoneb Neb) 3 ampule STK-MED ONCE .ROUTE ; Start at 14:08; Stop 10/19/16 at 14:09; Status DC Sodium Chloride (NS Flush) 2 ml UNSCH PRN IVF FLUSH AFTER USING IV ACCESS; Start 10/19/16 at 14:15; Stop 10/21/16 at 22:04; Status DC Methylprednisolone Sodium Succinate (SoluMEDROL INJ) 125 mg ONCE ONCE IVP Last administered on 10/19/16 14:26; Start 10/19/16 at 14:15; Stop 10/19/16 at 14:16; Status DC Albuterol/ Ipratropium (Duoneb Neb) 1 ampule Q15M INH Last administered on 10/19 14:36; Start 10/19/16 at 14:15; Stop 10/19/16 at 14:46; Status DC Furosemide (Lasix Inj) 40 mg ONCE ONCE IV PUSH Last administered on 10/19/16 16:19; Start 10/19/16 at 16:00; Stop 10/19/16 at 16:01; Status DC Aspirin (Ecotrin Ec) 81 mg DAILY PO Last administered on 10/28/16 07:35; Start 10/20/16 at 09:00 Budesonide/ Formoterol Fumarate (Symbicort 160-4.5 Inh) 2 puff Q12HR INH Last administered on 10/28/16 07:36; Start 10/19/16 at 21:00 Metoprolol Tartrate (Lopressor) 50 mg BID PO Last administered on 10/21/16 10: 09; Start 10/19/16 at 21:00; Stop 10/21/16 at 14:31; Status DC Tiotropium [place] (Spiriva Inh) 18 mcg DAILY INH Last administered on 11:12; Start 10/20/16 at 09:00; Stop 10/21/16 at 10:10; Status DC Multivitamins 1 tab 1 tab DAILY PO Last administered on 10/28/16 07:35; Start 10/20/16 at 09:00 Sodium Chloride (NS 1000 ml Inj) 1,000 ml @ 84 mls/hr [id number] IV Last administered on 10/21/16 05:37; Start 10/19/16 at 17:38; Stop 10/21/16 at 10:03 ; Status DC Sodium Chloride (NS Flush) 2 ml UNSCH PRN IV FLUSH FLUSH AFTER USING IV ACCESS ; Start 10/19/16 at 17:45 Sodium Chloride (NS Flush) 2 ml BID IV FLUSH Last administered on 10/28/16 07: 37; Start 10/19/16 at 21:00 Acetaminophen (Tylenol) 650 mg Q6H PRN PO FEVER >101F Last administered on 10/27 08:52; Start 10/19/16 at 17:45 Acetaminophen/ Hydrocodone Bitart ([place] 5-325 Mg) 1 tab Q4H PRN PO PAIN SCALE 1 TO 5 Last administered on 10/26/16 14:14; Start 10/19/16 at 17:45 Morphine Sulfate (Morphine Inj) 2 mg Q2H PRN IV PAIN SCALE 6 TO 10; Start 10/19 at 17:45 Pantoprazole Sodium (Protonix Inj) 40 mg DAILY IV Last administered on 07:35; Start 10/20/16 at 09:00 Artificial Tears (Tears Naturale Opth Soln) 1 drop TID EACH EYE Last administered on 10/28/16 07:37; Start 10/19/16 at 18:00 Ondansetron HCl (Zofran Inj) 4 mg Q6H PRN IV NAUSEA OR VOMITING Last administered on 10/28/16 07:35; Start 10/19/16 at 17:45 Albuterol/ Ipratropium (Duoneb Neb) 1 ampule Q4HR NEB INH Last administered on 10/20/16 11:04; Start 10/19/16 at 20:00; Stop 10/20/16 at 12:17; Status DC Albuterol Sulfate (Albuterol Neb) 2.5 mg Q2HR NEB PRN INH SOB/WHEEZING; Start 10/19/16 at 17:45 Enoxaparin Sodium (Lovenox Inj) 40 mg Q24H SQ Last administered on 10/27/16 21 :13; Start 10/19/16 at 21:00 Miscellaneous Information 1 [id number] XX Last administered on 10/19/16 17:45; Start 10/19/16 at 17:45 Chlorhexidine Gluconate (Chlorhexidine 2% Cloth) 3 pack Taper DAILY@04 TOP Last administered on 10/19/16 21:33; Start 10/20/16 at 04:00; Stop 10/21/16 at 10:03; Status DC Chlorhexidine Gluconate (Chlorhexidine 2% Cloth) 3 pack UNSCH PRN TOP HYGIENIC CARE; Start 10/19/16 at 17:45; Stop 10/21/16 at 10:03; Status DC Senna/Docusate Sodium (Alyssa-Colace) 1 tab BID PO Last administered on 07:36; Start 10/19/16 at 21:00 Magnesium Hydroxide (Milk Of Magnesia Liq) 30 ml Q12H PRN PO MILD - MODERATE CONSTIPATION Last administered on 10/21/16 11:40; Start 10/19/16 at 17:45 Sennosides (Senokot) 17.2 mg Q12H PRN PO MODERATE - SEVERE CONSTIPATION; Start 10/19/16 at 17:45 Bisacodyl (Dulcolax Supp) 10 mg DAILY PRN RECTAL SEVERE CONSITIPATION; Start at 17:45 Lactulose 30 ml 30 ml DAILY PRN PO SEVERE CONSITIPATION Last administered on 16:16; Start 10/19/16 at 17:45 Cefepime HCl 2000 mg/Sodium Chloride 100 ml @ 200 mls/hr Q8H IV Last administered on 10/27/16 12:35; Start 10/19/16 at 19:00; Stop 10/27/16 at 15:19 ; Status DC Azithromycin 500 mg/Sodium Chloride 250 ml @ 250 mls/hr Q24H IV Last administered on 10/25/16 20:52; Start 10/19/16 at 20:00; Stop 10/26/16 at 10:31 ; Status DC Pharmacy Profile Note (Vancomycin Consult Pharmacy) 0 ml @ 0 mls/hr UNSCH OTHER ; Start 10/19/16 at 17:45; Stop 10/23/16 at 15:49; Status DC Methylprednisolone Sodium Succinate 40 mg 40 mg Q12H IV Last administered on 03:40; Start 10/20/16 at 02:00; Stop 10/20/16 at 12:17; Status DC Vancomycin HCl/ Sodium Chloride (Vancomycin Inj/ NS 250 ml Inj) 257.5 ml @ 250 mls/hr Q12H IV Last administered on 10/21/16 10:08; Start 10/19/16 at 20:00; Stop 10/21/16 at 11:01; Status DC Miscellaneous Information SPECIFIC LAB TO BE DRAWN:VANCO TROUGH DATE TO... ONCE ONCE .XX ; Start 10/21/16 at 07:45; Stop 10/21/16 at 07:46; Status DC Ascorbic Acid (Vitamin C) 250 mg DAILY PO Last administered on 10/28/16 07:36 ; Start 10/20/16 at 09:00 Acetazolamide Sodium (Diamox Inj) 250 mg ONCE ONCE IV PUSH ; Start 10/20/16 at 07:00; Stop 10/20/16 at 07:01; Status UNV Miscellaneous (Pill Splitter) 1 ea UNSCH PRN OTHER SEE LABEL COMMENTS; Start at 07:00 Albuterol/ Ipratropium (Duoneb Neb) 1 ampule Q6HR NEB NEB Last administered on 10/24/16 16:00; Start 10/20/16 at 16:00; Stop 10/24/16 at 16:00; Status DC Methylprednisolone Sodium Succinate (SoluMEDROL INJ) 40 mg Q6HR IV Last administered on 10/24/16 17:16; Start 10/20/16 at 18:00; Stop 10/24/16 at 17:28 ; Status DC Lorazepam 0.5 mg 0.5 mg ONCE ONCE IV PUSH Last administered on 10/20/16 23:03 ; Start 10/20/16 at 22:15; Stop 10/20/16 at 22:16; Status DC Vancomycin HCl/ Sodium Chloride (Vancomycin Inj/ NS 250 ml Inj) 257.5 ml @ 250 mls/hr Q8H IV Last administered on 10/23/16 09:37; Start 10/21/16 at 18:00; Stop 10/23/16 at 12:40; Status DC Miscellaneous Information SPECIFIC LAB TO BE DRAWN:VANCO TROUGH DATE TO... ONCE ONCE .XX ; Start 10/22/16 at 09:45; Stop 10/22/16 at 09:46; Status DC Furosemide (Lasix Inj) 40 mg BID@09,18 IV PUSH Last administered on 10/22/16 08:34; Start 10/21/16 at 11:00; Stop 10/22/16 at 12:25; Status DC Diltiazem HCl (Cardizem Cd) 180 mg DAILY PO Last administered on 10/28/16 07: 36; Start 10/22/16 at 09:00 Furosemide (Lasix Inj) 20 mg DAILY IV PUSH Last administered on 10/21/16 15:38 ; Start 10/21/16 at 15:00; Stop 10/22/16 at 07:48; Status DC Potassium Chloride (KCl) 20 meq DAILY PO Last administered on 10/28/16 07:36; Start 10/22/16 at 09:00 Lorazepam (Ativan Inj) 1 mg HS PRN IV ANXIETY Last administered on 10/23/16 21 :30; Start 10/21/16 at 22:15 Miscellaneous Information SPECIFIC LAB TO BE DRAWN:VANCO TROUGH DATE TO... ONCE ONCE .XX ; Start 10/23/16 at 09:45; Stop 10/23/16 at 09:46; Status DC Furosemide (Lasix Inj) 20 mg DAILY IV PUSH ; Start 10/23/16 at 09:00; Stop 10/23 at 09:00; Status DC Furosemide (Lasix Inj) 20 mg BID IV PUSH Last administered on 10/24/16 08:10; Start 10/23/16 at 09:00; Stop 10/24/16 at 09:51; Status DC Lorazepam (Ativan) 0.5 mg ONCE ONCE PO ; Start 10/22/16 at 17:45; Stop at 17:48; Status DC Miscellaneous Information SPECIFIC LAB TO BE PRABHU... ONCE ONCE .XX ; Start 10/23 at 17:45; Stop 10/23/16 at 17:46; Status Cancel Lorazepam (Ativan) 0.25 mg Q12HR PRN PO anxiety Last administered on 10/26/16 14:14; Start 10/23/16 at 13:30 Miscellaneous (Pill Splitter) 1 ea UNSCH PRN OTHER SEE LABEL COMMENTS; Start at 13:45; Status Cancel Furosemide (Lasix) 20 mg DAILY PO Last administered on 10/28/16 07:35; Start 10/25/16 at 09:00 Cyclobenzaprine HCl (Flexeril) 5 mg ONCE ONCE PO Last administered on 12:45; Start 10/24/16 at 12:45; Stop 10/24/16 at 12:46; Status DC Cyclobenzaprine HCl (Flexeril) 5 mg Q8H PRN PO muscle spasm; Start 10/24/16 at 12:45 Methylprednisolone Sodium Succinate (SoluMEDROL INJ) 40 mg BID IV Last administered on 10/26/16 08:33; Start 10/24/16 at 21:00; Stop 10/26/16 at 12:32 ; Status DC Albuterol/ Ipratropium (Duoneb Neb) 1 ampule QID NEB INH Last administered on 10/28/16 08:07; Start 10/24/16 at 20:00 Calcium Carbonate (Tums Chew) 500 mg Q12HR CHEW Last administered on 10/28/16 07:36; Start 10/25/16 at 21:00 Calcium Carbonate (Tums Chew) 500 mg ONCE ONCE CHEW Last administered on 11:15; Start 10/25/16 at 11:15; Stop 10/25/16 at 11:39; Status DC Enalaprilat (Vasotec Inj) 2.5 mg Q6H PRN IV PUSH SBP>160, DBP>90 Last administered on 10/26/16 08:44; Start 10/26/16 at 05:15 Lisinopril (Prinivil) 20 mg DAILY PO Last administered on 10/28/16 07:36; Start 10/26/16 at 09:00 Gabapentin (Neurontin) 100 mg TID PO Last administered on 10/28/16 07:36; Start 10/26/16 at 09:00 Azithromycin (Zithromax) 500 mg Q24H PO Last administered on 10/26/16 20:28; Start 10/26/16 at 20:00; Stop 10/27/16 at 15:19; Status DC Methylprednisolone Sodium Succinate (SoluMEDROL INJ) 40 mg DAILY IV Last administered on 10/27/16 08:24; Start 10/27/16 at 09:00; Stop 10/27/16 at 15:19 ; Status DC Prednisone (Deltasone) 20 mg BID PO Last administered on 10/28/16 07:36; Start 10/27/16 at 21:00 Levofloxacin (Levaquin) 500 mg DAILY@11 PO ; Start 10/28/16 at 11:00 A/P Assessment and Plan A/P -Acute on chronic hypercarbic respiratory failure/ COPD- improving. History of obstructive lung disease. No smoking history. Alpha-1 anti-trypsin workup negative. CT chest showed: Moderate-sized bilateral pleural effusions with adjacent compressive atelectasis and/or infiltrates; Diffuse ground-glass densities within the aerated portions of both lungs raising the possibility of pulmonary vascular congestion; Stable mediastinal lymphadenopathy which is nonspecific; Stable calcified granuloma within the left lower lobe. oxygen as needed to keep saturations around 90% and Bipap as needed; of note the patient is oxygen dependent. continue antibiotic and prednisone. to try to wean pt off Bipap prior to transfer to SNF. pulmonary following. -Acute grade 1 diastolic CHF/ Coronary artery disease Echo with normal EF, grade 1 diastolic CHF. EKG reveals no signs of acute ST elevation; There is left axis deviation/mild LVH appreciated. Trops flat. Clean Up Supervisor was consulted. Recommended to discontinue metoprolol due to severe COPD which was done and started patient on a calcium channel miguel angel . added lisinopril 20mg po daily due to elevated BP's Clean Up Supervisor does not think patient is CHF. Clean Up Supervisor discontinue Lasix. Lasix was restarted by cutter hot knife at 20 mg IV twice a day but now on lasix 20mg po daily. Pt previously did have a 11 run of Vtach on TELE and was asymptomatic, RN has placed a call to Dr. Nielsen regarding this. Pt currently asymptomatic Normocytic anemia/ Thrombocytopenia- fairly stable- will monitor CAP Previously on ciprofloxacin and Terramycin aerosols twice a day. Sputum culture with normal thalia. - continue levaquin - blood cultures and sputum cultures are negative. Muscle spasms -Most likely secondary to dehydration from severe diuresing. -Lasix was changed. -on Flexeril when necessary.on gabapentin 100mg po tid as i suspect there is a component of neuropathy hypocalcemia noted: replace w tums, monitor Hypernatremia The pt was on NS. resolved. - off NS. Deconditioned - physical therapist following. PPx: SCD/Lovenox Discharge Planning dc planning to rehab when cleared by pulmonary. Cecy Paul MD Oct 28, 2016 11:02
[2016-10-28] MEDS ORDERED: LEVA500T20 PO (11:07)
[2016-10-28] MEDS ORDERED: CARD180C5 PO (11:07)
[2016-10-28] MEDS ORDERED: PRED5TAB PO (11:07)
[2016-10-28] MEDS ORDERED: LORA-392 PO (11:07)
[2016-10-28] MEDS ORDERED: LISI-515 PO (11:07)
[2016-10-28] MEDS: LEVOFLOXACIN 500 MG TAB PO SCH (12:41)
[2016-10-28] MEDS: ENOXAPARIN SODIUM 40 MG/0.4 ML SYRINGE SQ SCH (21:14)
[2016-10-29] VITALS (11 sets, daily range): BP systolic 103–153; BP diastolic 57–70; PULSE 98–121; RESP 18–22; TEMP 98.1–99.5; O2SAT 93–99
[2016-10-29] MEDS: PANTOPRAZOLE SODIUM 40 MG VIAL IV SCH (07:30)
[2016-10-29] MEDS: predniSONE 20 MG TAB PO SCH ×2 (07:30→21:23)
[2016-10-29] MEDS: ASCORBIC ACID 500 MG TAB PO SCH (07:30)
[2016-10-29] MEDS: MULTIVITAMIN TAB PO SCH (07:30)
[2016-10-29] MEDS: LISINOPRIL 20 MG TAB PO SCH (07:30)
[2016-10-29] MEDS: GABAPENTIN 100 MG CAP PO SCH ×3 (07:31→17:17)
[2016-10-29] MEDS: DOCUSATE SODIUM 50 MG/SENNA 8.6 MG TAB PO SCH ×2 (07:31→21:23)
[2016-10-29] MEDS: FUROSEMIDE 20 MG TAB PO SCH (07:31)
[2016-10-29] MEDS: DILTIAZEM-CD 180 MG CAP ER PO SCH (07:31)
[2016-10-29] MEDS: ASPIRIN EC 81 MG TABEC PO SCH (07:31)
[2016-10-29] MEDS: SODIUM CHLORIDE 0.9% FLUSH 10 ML FLUSH IV FLUSH SCH ×2 (07:31→21:00)
[2016-10-29] MEDS: POTASSIUM CHLORIDE 20 MEQ CONTROLLED RELEASE TAB PO SCH (07:31)
[2016-10-29] MEDS: CALCIUM CARBONATE 500 MG CHEWABLE TAB CHEW SCH ×2 (07:31→21:23)
[2016-10-29] MEDS: BUDESONIDE-FORMOTEROL 160/4.5 MCG INHALER INH SCH ×2 (07:32→21:00)
[2016-10-29] MEDS: ARTIFICIAL TEARS OPTH SOLN 15 ML BTL EACH EYE SCH ×3 (07:32→17:18)
[2016-10-29] MEDS: RESP: ALBUTEROL 2.5 MG/IPRATROPIUM 0.5 MG NEB (SCH) INH ×4 (08:03→18:56)
--- NOTE | 2016-10-29 10:53 | HHI.PR ---
Subjective Remarks in no acute distress. on oxygen via [place]. says that her sob is better. no fever. Objective Vitals Vital Signs Date Time Temp Pulse Resp B/P Pulse Ox O2 Delivery O2 Flow Rate FiO2 10/29/16 08:04 98 Nasal Cannula 2.00 10/29/16 08:00 99.5 108 18 140/69 97 10/29/16 06:28 94 Room Air 2.00 Nasal Cannula 10/29/16 05:34 98.4 99 22 136/70 95 10/29/16 04:00 Nasal Cannula 2.00 10/29/16 00:00 Nasal Cannula 2.00 10/29/16 00:00 98.1 98 20 153/67 93 10/28/16 21:15 Nasal Cannula 2.00 10/28/16 20:10 99 10/28/16 20:00 98.5 104 20 134/63 95 10/28/16 16:00 98.8 102 18 127/57 97 10/28/16 15:11 98 Nasal Cannula 2.00 10/28/16 12:00 98.6 101 18 129/60 90 I/O 10/28/16 10/28/16 10/28/16 10/29/16 10/29/16 10/29/16 07:00 15:00 23:00 07:00 15:00 23:00 Intake Total 120 ml 960 ml 6 ml Output Total 0 ml 1000 ml 150 ml 600 ml Balance 120 ml -40 ml -150 ml -594 ml Intake Oral 120 ml 960 ml IV Total 6 ml Output Urine Total 0 ml 1000 ml 150 ml 600 ml # Voids 5 # Bowel Movements 0 0 0 0 Result Diagram: 10/27/16 0615 10/28/16 0717 Imaging Last Impressions Chest X-Ray 10/22/16 0600 Signed Impressions: Service Date/Time: Saturday, October 22, 2016 02:51 - CONCLUSION: No significant interval change. Ajit Luna MD Chest CT 10/20/16 0000 Signed Impressions: Service Date/Time: Thursday, October 20, 2016 16:55 - CONCLUSION: 1. Moderate- sized bilateral pleural effusions with adjacent compressive atelectasis and/or infiltrates. Clinical correlation is recommended. 2. Diffuse ground-glass densities within the aerated portions of both lungs raising the possibility of pulmonary vascular congestion. 3. Cardiomegaly. 4. Stable mediastinal lymphadenopathy which is nonspecific. 5. Degenerative changes and scoliosis of the thoracic spine. 6. Stable calcified granuloma within the left lower lobe. Shaw Mancini MD Lower Extremity Ultrasound 10/19/16 0000 Signed Impressions: Service Date/Time: October 18:51 - CONCLUSION: No DVT of either lower extremity. Negro Rodrigez MD Objective Remarks GENERAL: This is a well-nourished, well-developed patient, in no apparent distress. CARDIOVASCULAR: Regular rate and regular rhythm without murmurs, gallops, or rubs. RESPIRATORY: diminished air entry in bases GASTROINTESTINAL: Abdomen soft, non-tender, nondistended. Normal, active bowel sounds MUSCULOSKELETAL: Extremities without clubbing, cyanosis, or edema. NEURO: Alert & Oriented x4 to person, place, time, situation. Moves all ext x4 Procedures none Medications and IVs Current Medications Albuterol/ Ipratropium (Duoneb Neb) 3 ampule STK-MED ONCE .ROUTE ; Start at 14:08; Stop 10/19/16 at 14:09; Status DC Sodium Chloride (NS Flush) 2 ml UNSCH PRN IVF FLUSH AFTER USING IV ACCESS; Start 10/19/16 at 14:15; Stop 10/21/16 at 22:04; Status DC Methylprednisolone Sodium Succinate (SoluMEDROL INJ) 125 mg ONCE ONCE IVP Last administered on 10/19/16 14:26; Start 10/19/16 at 14:15; Stop 10/19/16 at 14:16; Status DC Albuterol/ Ipratropium (Duoneb Neb) 1 ampule Q15M INH Last administered on 10/19 14:36; Start 10/19/16 at 14:15; Stop 10/19/16 at 14:46; Status DC Furosemide (Lasix Inj) 40 mg ONCE ONCE IV PUSH Last administered on 10/19/16 16:19; Start 10/19/16 at 16:00; Stop 10/19/16 at 16:01; Status DC Aspirin (Ecotrin Ec) 81 mg DAILY PO Last administered on 10/29/16 07:31; Start 10/20/16 at 09:00 Budesonide/ Formoterol Fumarate (Symbicort 160-4.5 Inh) 2 puff Q12HR INH Last administered on 10/29/16 07:32; Start 10/19/16 at 21:00 Metoprolol Tartrate (Lopressor) 50 mg BID PO Last administered on 10/21/16 10: 09; Start 10/19/16 at 21:00; Stop 10/21/16 at 14:31; Status DC Tiotropium [place] (Spiriva Inh) 18 mcg DAILY INH Last administered on 11:12; Start 10/20/16 at 09:00; Stop 10/21/16 at 10:10; Status DC Multivitamins 1 tab 1 tab DAILY PO Last administered on 10/29/16 07:30; Start 10/20/16 at 09:00 Sodium Chloride (NS 1000 ml Inj) 1,000 ml @ 84 mls/hr [id number] IV Last administered on 10/21/16 05:37; Start 10/19/16 at 17:38; Stop 10/21/16 at 10:03 ; Status DC Sodium Chloride (NS Flush) 2 ml UNSCH PRN IV FLUSH FLUSH AFTER USING IV ACCESS ; Start 10/19/16 at 17:45 Sodium Chloride (NS Flush) 2 ml BID IV FLUSH Last administered on 10/29/16 07: 31; Start 10/19/16 at 21:00 Acetaminophen (Tylenol) 650 mg Q6H PRN PO FEVER >101F Last administered on 10/27 08:52; Start 10/19/16 at 17:45 Acetaminophen/ Hydrocodone Bitart ([place] 5-325 Mg) 1 tab Q4H PRN PO PAIN SCALE 1 TO 5 Last administered on 10/26/16 14:14; Start 10/19/16 at 17:45 Morphine Sulfate (Morphine Inj) 2 mg Q2H PRN IV PAIN SCALE 6 TO 10; Start 10/19 at 17:45 Pantoprazole Sodium (Protonix Inj) 40 mg DAILY IV Last administered on 07:30; Start 10/20/16 at 09:00 Artificial Tears (Tears Naturale Opth Soln) 1 drop TID EACH EYE Last administered on 10/29/16 07:32; Start 10/19/16 at 18:00 Ondansetron HCl (Zofran Inj) 4 mg Q6H PRN IV NAUSEA OR VOMITING Last administered on 10/28/16 07:35; Start 10/19/16 at 17:45 Albuterol/ Ipratropium (Duoneb Neb) 1 ampule Q4HR NEB INH Last administered on 10/20/16 11:04; Start 10/19/16 at 20:00; Stop 10/20/16 at 12:17; Status DC Albuterol Sulfate (Albuterol Neb) 2.5 mg Q2HR NEB PRN INH SOB/WHEEZING; Start 10/19/16 at 17:45 Enoxaparin Sodium (Lovenox Inj) 40 mg Q24H SQ Last administered on 10/28/16 21 :14; Start 10/19/16 at 21:00 Miscellaneous Information 1 [id number] Last administered on 10/19/16 17:45; Start 10/19/16 at 17:45 Chlorhexidine Gluconate (Chlorhexidine 2% Cloth) 3 pack Taper DAILY@04 TOP Last administered on 10/19/16 21:33; Start 10/20/16 at 04:00; Stop 10/21/16 at 10:03; Status DC Chlorhexidine Gluconate (Chlorhexidine 2% Cloth) 3 pack UNSCH PRN TOP HYGIENIC CARE; Start 10/19/16 at 17:45; Stop 10/21/16 at 10:03; Status DC Senna/Docusate Sodium (Alyssa-Colace) 1 tab BID PO Last administered on 07:31; Start 10/19/16 at 21:00 Magnesium Hydroxide (Milk Of Magnesia Liq) 30 ml Q12H PRN PO MILD - MODERATE CONSTIPATION Last administered on 10/21/16 11:40; Start 10/19/16 at 17:45 Sennosides (Senokot) 17.2 mg Q12H PRN PO MODERATE - SEVERE CONSTIPATION; Start 10/19/16 at 17:45 Bisacodyl (Dulcolax Supp) 10 mg DAILY PRN RECTAL SEVERE CONSITIPATION; Start at 17:45 Lactulose 30 ml 30 ml DAILY PRN PO SEVERE CONSITIPATION Last administered on 16:16; Start 10/19/16 at 17:45 Cefepime HCl 2000 mg/Sodium Chloride 100 ml @ 200 mls/hr Q8H IV Last administered on 10/27/16 12:35; Start 10/19/16 at 19:00; Stop 10/27/16 at 15:19 ; Status DC Azithromycin 500 mg/Sodium Chloride 250 ml @ 250 mls/hr Q24H IV Last administered on 10/25/16 20:52; Start 10/19/16 at 20:00; Stop 10/26/16 at 10:31 ; Status DC Pharmacy Profile Note (Vancomycin Consult Pharmacy) 0 ml @ 0 mls/hr UNSCH OTHER ; Start 10/19/16 at 17:45; Stop 10/23/16 at 15:49; Status DC Methylprednisolone Sodium Succinate 40 mg 40 mg Q12H IV Last administered on 03:40; Start 10/20/16 at 02:00; Stop 10/20/16 at 12:17; Status DC Vancomycin HCl/ Sodium Chloride (Vancomycin Inj/ NS 250 ml Inj) 257.5 ml @ 250 mls/hr Q12H IV Last administered on 10/21/16 10:08; Start 10/19/16 at 20:00; Stop 10/21/16 at 11:01; Status DC Miscellaneous Information SPECIFIC LAB TO BE DRAWN:VANCO TROUGH DATE TO... ONCE ONCE .XX ; Start 10/21/16 at 07:45; Stop 10/21/16 at 07:46; Status DC Ascorbic Acid (Vitamin C) 250 mg DAILY PO Last administered on 10/29/16 07:30 ; Start 10/20/16 at 09:00 Acetazolamide Sodium (Diamox Inj) 250 mg ONCE ONCE IV PUSH ; Start 10/20/16 at 07:00; Stop 10/20/16 at 07:01; Status UNV Miscellaneous (Pill Splitter) 1 ea UNSCH PRN OTHER SEE LABEL COMMENTS; Start at 07:00 Albuterol/ Ipratropium (Duoneb Neb) 1 ampule Q6HR NEB NEB Last administered on 10/24/16 16:00; Start 10/20/16 at 16:00; Stop 10/24/16 at 16:00; Status DC Methylprednisolone Sodium Succinate (SoluMEDROL INJ) 40 mg Q6HR IV Last administered on 10/24/16 17:16; Start 10/20/16 at 18:00; Stop 10/24/16 at 17:28 ; Status DC Lorazepam 0.5 mg 0.5 mg ONCE ONCE IV PUSH Last administered on 10/20/16 23:03 ; Start 10/20/16 at 22:15; Stop 10/20/16 at 22:16; Status DC Vancomycin HCl/ Sodium Chloride (Vancomycin Inj/ NS 250 ml Inj) 257.5 ml @ 250 mls/hr Q8H IV Last administered on 10/23/16 09:37; Start 10/21/16 at 18:00; Stop 10/23/16 at 12:40; Status DC Miscellaneous Information SPECIFIC LAB TO BE DRAWN:VANCO TROUGH DATE TO... ONCE ONCE .XX ; Start 10/22/16 at 09:45; Stop 10/22/16 at 09:46; Status DC Furosemide (Lasix Inj) 40 mg BID@09,18 IV PUSH Last administered on 10/22/16 08:34; Start 10/21/16 at 11:00; Stop 10/22/16 at 12:25; Status DC Diltiazem HCl (Cardizem Cd) 180 mg DAILY PO Last administered on 10/29/16 07: 31; Start 10/22/16 at 09:00 Furosemide (Lasix Inj) 20 mg DAILY IV PUSH Last administered on 10/21/16 15:38 ; Start 10/21/16 at 15:00; Stop 10/22/16 at 07:48; Status DC Potassium Chloride (KCl) 20 meq DAILY PO Last administered on 10/29/16 07:31; Start 10/22/16 at 09:00 Lorazepam (Ativan Inj) 1 mg HS PRN IV ANXIETY Last administered on 10/23/16 21 :30; Start 10/21/16 at 22:15 Miscellaneous Information SPECIFIC LAB TO BE DRAWN:VANCO TROUGH DATE TO... ONCE ONCE .XX ; Start 10/23/16 at 09:45; Stop 10/23/16 at 09:46; Status DC Furosemide (Lasix Inj) 20 mg DAILY IV PUSH ; Start 10/23/16 at 09:00; Stop 10/23 at 09:00; Status DC Furosemide (Lasix Inj) 20 mg BID IV PUSH Last administered on 10/24/16 08:10; Start 10/23/16 at 09:00; Stop 10/24/16 at 09:51; Status DC Lorazepam (Ativan) 0.5 mg ONCE ONCE PO ; Start 10/22/16 at 17:45; Stop at 17:48; Status DC Miscellaneous Information SPECIFIC LAB TO BE ... ONCE ONCE .XX ; Start 10/23 at 17:45; Stop 10/23/16 at 17:46; Status Cancel Lorazepam (Ativan) 0.25 mg Q12HR PRN PO anxiety Last administered on 10/26/16 14:14; Start 10/23/16 at 13:30 Miscellaneous (Pill Splitter) 1 ea UNSCH PRN OTHER SEE LABEL COMMENTS; Start at 13:45; Status Cancel Furosemide (Lasix) 20 mg DAILY PO Last administered on 10/29/16 07:31; Start 10/25/16 at 09:00 Cyclobenzaprine HCl (Flexeril) 5 mg ONCE ONCE PO Last administered on 12:45; Start 10/24/16 at 12:45; Stop 10/24/16 at 12:46; Status DC Cyclobenzaprine HCl (Flexeril) 5 mg Q8H PRN PO muscle spasm; Start 10/24/16 at 12:45 Methylprednisolone Sodium Succinate (SoluMEDROL INJ) 40 mg BID IV Last administered on 10/26/16 08:33; Start 10/24/16 at 21:00; Stop 10/26/16 at 12:32 ; Status DC Albuterol/ Ipratropium (Duoneb Neb) 1 ampule QID NEB INH Last administered on 10/29/16 08:03; Start 10/24/16 at 20:00 Calcium Carbonate (Tums Chew) 500 mg Q12HR CHEW Last administered on 10/29/16 07:31; Start 10/25/16 at 21:00 Calcium Carbonate (Tums Chew) 500 mg ONCE ONCE CHEW Last administered on 11:15; Start 10/25/16 at 11:15; Stop 10/25/16 at 11:39; Status DC Enalaprilat (Vasotec Inj) 2.5 mg Q6H PRN IV PUSH SBP>160, DBP>90 Last administered on 10/26/16 08:44; Start 10/26/16 at 05:15 Lisinopril (Prinivil) 20 mg DAILY PO Last administered on 10/29/16 07:30; Start 10/26/16 at 09:00 Gabapentin (Neurontin) 100 mg TID PO Last administered on 10/29/16 07:31; Start 10/26/16 at 09:00 Azithromycin (Zithromax) 500 mg Q24H PO Last administered on 10/26/16 20:28; Start 10/26/16 at 20:00; Stop 10/27/16 at 15:19; Status DC Methylprednisolone Sodium Succinate (SoluMEDROL INJ) 40 mg DAILY IV Last administered on 10/27/16 08:24; Start 10/27/16 at 09:00; Stop 10/27/16 at 15:19 ; Status DC Prednisone (Deltasone) 20 mg BID PO Last administered on 10/29/16 07:30; Start 10/27/16 at 21:00 Levofloxacin (Levaquin) 500 mg DAILY@11 PO Last administered on 10/28/16 12:41 ; Start 10/28/16 at 11:00 A/P Assessment and Plan A/P -Acute on chronic hypercarbic respiratory failure/ COPD- improving. History of obstructive lung disease. No smoking history. Alpha-1 anti-trypsin workup negative. CT chest showed: Moderate-sized bilateral pleural effusions with adjacent compressive atelectasis and/or infiltrates; Diffuse ground-glass densities within the aerated portions of both lungs raising the possibility of pulmonary vascular congestion; Stable mediastinal lymphadenopathy which is nonspecific; Stable calcified granuloma within the left lower lobe. oxygen as needed to keep saturations around 90% and Bipap as needed; of note the patient is oxygen dependent. continue levaquin and prednisone. to try to wean pt off Bipap prior to transfer to SNF. pulmonary following. -Acute grade 1 diastolic CHF/ Coronary artery disease Echo with normal EF, grade 1 diastolic CHF. EKG reveals no signs of acute ST elevation; There is left axis deviation/mild LVH appreciated. Trops flat. [employer] Serv[employer] was consulted. Recommended to discontinue metoprolol due to severe COPD which was done and started patient on a calcium channel miguel angel . added lisinopril 20mg po daily due to elevated BP's [employer] Servicer does not think patient is CHF. [employer] discontinue Lasix. Lasix was restarted by pumping station engineer at 20 mg IV twice a day but now on lasix 20mg po daily. Pt previously did have a 11 run of Vtach on TELE and was asymptomatic, RN has placed a call to Dr. Nielsen regarding this. Pt currently asymptomatic Normocytic anemia/ Thrombocytopenia- fairly stable- will monitor CAP Previously on ciprofloxacin and Terramycin aerosols twice a day. Sputum culture with normal thalia. - continue levaquin - blood cultures and sputum cultures are negative. Muscle spasms -Most likely secondary to dehydration from severe diuresing. -Lasix was changed. -on Flexeril when necessary.on gabapentin 100mg po tid as i suspect there is a component of neuropathy hypocalcemia noted: replace w tums, monitor Hypernatremia The pt was on NS. resolved. - off NS. Deconditioned - physical therapist following. PPx: SCD/Lovenox Discharge Planning dc planning to rehab when cleared by pulmonary-possible early this week. Cecy Paul MD Oct 29, 2016 10:53
[2016-10-29] MEDS: LEVOFLOXACIN 500 MG TAB PO SCH (11:19)
[2016-10-29] MEDS: ENOXAPARIN SODIUM 40 MG/0.4 ML SYRINGE SQ SCH (21:24)
[2016-10-29] MEDS: LORazepam 0.5 MG TAB PO PRN (21:24)
[2016-10-30] VITALS: BP 128/64; PULSE 112; RESP 18; TEMP 98.6; O2SAT 99
[2016-10-30 04:00] VITALS: BP 147/68; PULSE 109; RESP 20; TEMP 98.5; O2SAT 97
[2016-10-30 08:00] VITALS: BP 134/63; PULSE 101; RESP 18; TEMP 98.3; O2SAT 95
[2016-10-30 08:13] VITALS: O2SAT 95
[2016-10-30] MEDS: RESP: ALBUTEROL 2.5 MG/IPRATROPIUM 0.5 MG NEB (SCH) INH ×2 (08:13→12:40)
--- NOTE | 2016-10-30 08:13 | HHI.PR ---
Subjective Remarks f/u; copd exacerbation in no acute distress. denies pain. afebrile. d/w the RN and the . Objective Vitals Vital Signs Date Time Temp Pulse Resp B/P Pulse Ox O2 Delivery O2 Flow Rate FiO2 10/30/16 04:00 98.5 109 20 147/68 97 10/30/16 00:00 99 Nasal Cannula 2.00 10/30/16 00:00 98.6 112 18 128/64 99 10/29/16 21:30 99 Nasal Cannula 2.00 10/29/16 20:10 121 10/29/16 20:00 98.1 109 18 108/58 97 10/29/16 16:44 99 Nasal Cannula 2.00 10/29/16 16:00 99.1 113 18 103/57 95 10/29/16 12:00 99.3 109 18 151/68 93 10/29/16 11:31 95 Nasal Cannula 2.00 10/29/16 08:40 Nasal Cannula 2.00 10/29/16 08:40 103 I/O 10/29/16 10/29/16 10/29/16 10/30/16 10/30/16 10/30/16 07:00 15:00 23:00 07:00 15:00 23:00 Intake Total 6 ml 720 ml 4 ml Output Total 600 ml 1000 ml 500 ml Balance -594 ml -280 ml -500 ml 4 ml Intake Oral 720 ml IV Total 6 ml 4 ml Output Urine Total 600 ml 1000 ml 500 ml # Bowel Movements 0 1 Result Diagram: 10/27/16 0615 10/28/16 0717 Imaging Last Impressions Chest X-Ray 10/22/16 0600 Signed Impressions: Service Date/Time: Saturday, October 22, 2016 02:51 - CONCLUSION: No significant interval change. Ajit Luna MD Chest CT 10/20/16 0000 Signed Impressions: Service Date/Time: Thursday, October 20, 2016 16:55 - CONCLUSION: 1. Moderate- sized bilateral pleural effusions with adjacent compressive atelectasis and/or infiltrates. Clinical correlation is recommended. 2. Diffuse ground-glass densities within the aerated portions of both lungs raising the possibility of pulmonary vascular congestion. 3. Cardiomegaly. 4. Stable mediastinal lymphadenopathy which is nonspecific. 5. Degenerative changes and scoliosis of the thoracic spine. 6. Stable calcified granuloma within the left lower lobe. Shaw Mancini MD Lower Extremity Ultrasound 10/19/16 0000 Signed Impressions: Service Date/Time: October 18:51 - CONCLUSION: No DVT of either lower extremity. Negro Rodrigez MD Objective Remarks GENERAL: This is a well-nourished, well-developed patient, in no apparent distress. CARDIOVASCULAR: Regular rate and regular rhythm without murmurs, gallops, or rubs. RESPIRATORY: diminished air entry in bases GASTROINTESTINAL: Abdomen soft, non-tender, nondistended. Normal, active bowel sounds MUSCULOSKELETAL: Extremities without clubbing, cyanosis, or edema. NEURO: Alert & Oriented x4 to person, place, time, situation. Moves all ext x4 Procedures none Medications and IVs Current Medications Albuterol/ Ipratropium (Duoneb Neb) 3 ampule STK-MED ONCE .ROUTE ; Start at 14:08; Stop 10/19/16 at 14:09; Status DC Sodium Chloride (NS Flush) 2 ml UNSCH PRN IVF FLUSH AFTER USING IV ACCESS; Start 10/19/16 at 14:15; Stop 10/21/16 at 22:04; Status DC Methylprednisolone Sodium Succinate (SoluMEDROL INJ) 125 mg ONCE ONCE IVP Last administered on 10/19/16 14:26; Start 10/19/16 at 14:15; Stop 10/19/16 at 14:16; Status DC Albuterol/ Ipratropium (Duoneb Neb) 1 ampule Q15M INH Last administered on 10/19 14:36; Start 10/19/16 at 14:15; Stop 10/19/16 at 14:46; Status DC Furosemide (Lasix Inj) 40 mg ONCE ONCE IV PUSH Last administered on 10/19/16 16:19; Start 10/19/16 at 16:00; Stop 10/19/16 at 16:01; Status DC Aspirin (Ecotrin Ec) 81 mg DAILY PO Last administered on 10/29/16 07:31; Start 10/20/16 at 09:00 Budesonide/ Formoterol Fumarate (Symbicort 160-4.5 Inh) 2 puff Q12HR INH Last administered on 10/29/16 21:00; Start 10/19/16 at 21:00 Metoprolol Tartrate (Lopressor) 50 mg BID PO Last administered on 10/21/16 10: 09; Start 10/19/16 at 21:00; Stop 10/21/16 at 14:31; Status DC Tiotropium [place] (Spiriva Inh) 18 mcg DAILY INH Last administered on 11:12; Start 10/20/16 at 09:00; Stop 10/21/16 at 10:10; Status DC Multivitamins 1 tab 1 tab DAILY PO Last administered on 10/29/16 07:30; Start 10/20/16 at 09:00 Sodium Chloride (NS 1000 ml Inj) 1,000 ml @ 84 mls/hr [id number] IV Last administered on 10/21/16 05:37; Start 10/19/16 at 17:38; Stop 10/21/16 at 10:03 ; Status DC Sodium Chloride (NS Flush) 2 ml UNSCH PRN IV FLUSH FLUSH AFTER USING IV ACCESS ; Start 10/19/16 at 17:45 Sodium Chloride (NS Flush) 2 ml BID IV FLUSH Last administered on 10/29/16 21: 00; Start 10/19/16 at 21:00 Acetaminophen (Tylenol) 650 mg Q6H PRN PO FEVER >101F Last administered on 10/27 08:52; Start 10/19/16 at 17:45 Acetaminophen/ Hydrocodone Bitart ([place] 5-325 Mg) 1 tab Q4H PRN PO PAIN SCALE 1 TO 5 Last administered on 10/26/16 14:14; Start 10/19/16 at 17:45 Morphine Sulfate (Morphine Inj) 2 mg Q2H PRN IV PAIN SCALE 6 TO 10; Start 10/19 at 17:45 Pantoprazole Sodium (Protonix Inj) 40 mg DAILY IV Last administered on 07:30; Start 10/20/16 at 09:00 Artificial Tears (Tears Naturale Opth Soln) 1 drop TID EACH EYE Last administered on 10/29/16 17:18; Start 10/19/16 at 18:00 Ondansetron HCl (Zofran Inj) 4 mg Q6H PRN IV NAUSEA OR VOMITING Last administered on 10/28/16 07:35; Start 10/19/16 at 17:45 Albuterol/ Ipratropium (Duoneb Neb) 1 ampule Q4HR NEB INH Last administered on 10/20/16 11:04; Start 10/19/16 at 20:00; Stop 10/20/16 at 12:17; Status DC Albuterol Sulfate (Albuterol Neb) 2.5 mg Q2HR NEB PRN INH SOB/WHEEZING Last administered on 10/30/16 03:22; Start 10/19/16 at 17:45 Enoxaparin Sodium (Lovenox Inj) 40 mg Q24H SQ Last administered on 10/29/16 21 :24; Start 10/19/16 at 21:00 Miscellaneous Information 1 [id number] Last administered on 10/19/16 17:45; Start 10/19/16 at 17:45 Chlorhexidine Gluconate (Chlorhexidine 2% Cloth) 3 pack Taper DAILY@04 TOP Last administered on 10/19/16 21:33; Start 10/20/16 at 04:00; Stop 10/21/16 at 10:03; Status DC Chlorhexidine Gluconate (Chlorhexidine 2% Cloth) 3 pack UNSCH PRN TOP HYGIENIC CARE; Start 10/19/16 at 17:45; Stop 10/21/16 at 10:03; Status DC Senna/Docusate Sodium (Alyssa-Colace) 1 tab BID PO Last administered on 21:23; Start 10/19/16 at 21:00 Magnesium Hydroxide (Milk Of Magnesia Liq) 30 ml Q12H PRN PO MILD - MODERATE CONSTIPATION Last administered on 10/21/16 11:40; Start 10/19/16 at 17:45 Sennosides (Senokot) 17.2 mg Q12H PRN PO MODERATE - SEVERE CONSTIPATION; Start 10/19/16 at 17:45 Bisacodyl (Dulcolax Supp) 10 mg DAILY PRN RECTAL SEVERE CONSITIPATION; Start at 17:45 Lactulose 30 ml 30 ml DAILY PRN PO SEVERE CONSITIPATION Last administered on 16:16; Start 10/19/16 at 17:45 Cefepime HCl 2000 mg/Sodium Chloride 100 ml @ 200 mls/hr Q8H IV Last administered on 10/27/16 12:35; Start 10/19/16 at 19:00; Stop 10/27/16 at 15:19 ; Status DC Azithromycin 500 mg/Sodium Chloride 250 ml @ 250 mls/hr Q24H IV Last administered on 10/25/16 20:52; Start 10/19/16 at 20:00; Stop 10/26/16 at 10:31 ; Status DC Pharmacy Profile Note (Vancomycin Consult Pharmacy) 0 ml @ 0 mls/hr UNSCH OTHER ; Start 10/19/16 at 17:45; Stop 10/23/16 at 15:49; Status DC Methylprednisolone Sodium Succinate 40 mg 40 mg Q12H IV Last administered on 03:40; Start 10/20/16 at 02:00; Stop 10/20/16 at 12:17; Status DC Vancomycin HCl/ Sodium Chloride (Vancomycin Inj/ NS 250 ml Inj) 257.5 ml @ 250 mls/hr Q12H IV Last administered on 10/21/16 10:08; Start 10/19/16 at 20:00; Stop 10/21/16 at 11:01; Status DC Miscellaneous Information SPECIFIC LAB TO BE DRAWN:VANCO TROUGH DATE TO... ONCE ONCE .XX ; Start 10/21/16 at 07:45; Stop 10/21/16 at 07:46; Status DC Ascorbic Acid (Vitamin C) 250 mg DAILY PO Last administered on 10/29/16 07:30 ; Start 10/20/16 at 09:00 Acetazolamide Sodium (Diamox Inj) 250 mg ONCE ONCE IV PUSH ; Start 10/20/16 at 07:00; Stop 10/20/16 at 07:01; Status UNV Miscellaneous (Pill Splitter) 1 ea UNSCH PRN OTHER SEE LABEL COMMENTS; Start at 07:00 Albuterol/ Ipratropium (Duoneb Neb) 1 ampule Q6HR NEB NEB Last administered on 10/24/16 16:00; Start 10/20/16 at 16:00; Stop 10/24/16 at 16:00; Status DC Methylprednisolone Sodium Succinate (SoluMEDROL INJ) 40 mg Q6HR IV Last administered on 10/24/16 17:16; Start 10/20/16 at 18:00; Stop 10/24/16 at 17:28 ; Status DC Lorazepam 0.5 mg 0.5 mg ONCE ONCE IV PUSH Last administered on 10/20/16 23:03 ; Start 10/20/16 at 22:15; Stop 10/20/16 at 22:16; Status DC Vancomycin HCl/ Sodium Chloride (Vancomycin Inj/ NS 250 ml Inj) 257.5 ml @ 250 mls/hr Q8H IV Last administered on 10/23/16 09:37; Start 10/21/16 at 18:00; Stop 10/23/16 at 12:40; Status DC Miscellaneous Information SPECIFIC LAB TO BE DRAWN:VANCO TROUGH DATE TO... ONCE ONCE .XX ; Start 10/22/16 at 09:45; Stop 10/22/16 at 09:46; Status DC Furosemide (Lasix Inj) 40 mg BID@09,18 IV PUSH Last administered on 10/22/16 08:34; Start 10/21/16 at 11:00; Stop 10/22/16 at 12:25; Status DC Diltiazem HCl (Cardizem Cd) 180 mg DAILY PO Last administered on 10/29/16 07: 31; Start 10/22/16 at 09:00 Furosemide (Lasix Inj) 20 mg DAILY IV PUSH Last administered on 10/21/16 15:38 ; Start 10/21/16 at 15:00; Stop 10/22/16 at 07:48; Status DC Potassium Chloride (KCl) 20 meq DAILY PO Last administered on 10/29/16 07:31; Start 10/22/16 at 09:00 Lorazepam (Ativan Inj) 1 mg HS PRN IV ANXIETY Last administered on 10/23/16 21 :30; Start 10/21/16 at 22:15 Miscellaneous Information SPECIFIC LAB TO BE DRAWN:VANCO TROUGH DATE TO... ONCE ONCE .XX ; Start 10/23/16 at 09:45; Stop 10/23/16 at 09:46; Status DC Furosemide (Lasix Inj) 20 mg DAILY IV PUSH ; Start 10/23/16 at 09:00; Stop 10/23 at 09:00; Status DC Furosemide (Lasix Inj) 20 mg BID IV PUSH Last administered on 10/24/16 08:10; Start 10/23/16 at 09:00; Stop 10/24/16 at 09:51; Status DC Lorazepam (Ativan) 0.5 mg ONCE ONCE PO ; Start 10/22/16 at 17:45; Stop at 17:48; Status DC Miscellaneous Information SPECIFIC LAB TO BE ... ONCE ONCE .XX ; Start 10/23 at 17:45; Stop 10/23/16 at 17:46; Status Cancel Lorazepam (Ativan) 0.25 mg Q12HR PRN PO anxiety Last administered on 10/29/16 21:24; Start 10/23/16 at 13:30 Miscellaneous (Pill Splitter) 1 ea UNSCH PRN OTHER SEE LABEL COMMENTS; Start at 13:45; Status Cancel Furosemide (Lasix) 20 mg DAILY PO Last administered on 10/29/16 07:31; Start 10/25/16 at 09:00 Cyclobenzaprine HCl (Flexeril) 5 mg ONCE ONCE PO Last administered on 12:45; Start 10/24/16 at 12:45; Stop 10/24/16 at 12:46; Status DC Cyclobenzaprine HCl (Flexeril) 5 mg Q8H PRN PO muscle spasm; Start 10/24/16 at 12:45 Methylprednisolone Sodium Succinate (SoluMEDROL INJ) 40 mg BID IV Last administered on 10/26/16 08:33; Start 10/24/16 at 21:00; Stop 10/26/16 at 12:32 ; Status DC Albuterol/ Ipratropium (Duoneb Neb) 1 ampule QID NEB INH Last administered on 10/29/16 18:56; Start 10/24/16 at 20:00 Calcium Carbonate (Tums Chew) 500 mg Q12HR CHEW Last administered on 10/29/16 21:23; Start 10/25/16 at 21:00 Calcium Carbonate (Tums Chew) 500 mg ONCE ONCE CHEW Last administered on 11:15; Start 10/25/16 at 11:15; Stop 10/25/16 at 11:39; Status DC Enalaprilat (Vasotec Inj) 2.5 mg Q6H PRN IV PUSH SBP>160, DBP>90 Last administered on 10/26/16 08:44; Start 10/26/16 at 05:15 Lisinopril (Prinivil) 20 mg DAILY PO Last administered on 10/29/16 07:30; Start 10/26/16 at 09:00 Gabapentin (Neurontin) 100 mg TID PO Last administered on 10/29/16 17:17; Start 10/26/16 at 09:00 Azithromycin (Zithromax) 500 mg Q24H PO Last administered on 10/26/16 20:28; Start 10/26/16 at 20:00; Stop 10/27/16 at 15:19; Status DC Methylprednisolone Sodium Succinate (SoluMEDROL INJ) 40 mg DAILY IV Last administered on 10/27/16 08:24; Start 10/27/16 at 09:00; Stop 10/27/16 at 15:19 ; Status DC Prednisone (Deltasone) 20 mg BID PO Last administered on 10/29/16 21:23; Start 10/27/16 at 21:00 Levofloxacin (Levaquin) 500 mg DAILY@11 PO Last administered on 10/29/16 11:19 ; Start 10/28/16 at 11:00 A/P Assessment and Plan A/P -Acute on chronic hypercarbic respiratory failure/ COPD- History of obstructive lung disease. No smoking history. Alpha-1 anti-trypsin workup negative. CT chest showed: Moderate-sized bilateral pleural effusions with adjacent compressive atelectasis and/or infiltrates; Diffuse ground-glass densities within the aerated portions of both lungs raising the possibility of pulmonary vascular congestion; Stable mediastinal lymphadenopathy which is nonspecific; Stable calcified granuloma within the left lower lobe. oxygen as needed to keep saturations around 90% and Bipap as needed; of note the patient is oxygen dependent. continue levaquin and prednisone. has been off the BiPaP over night. pulmonary follow-up appreciated and recommended palliative care/ hospice evaluation. -Acute grade 1 diastolic CHF/ Coronary artery disease Echo with normal EF, grade 1 diastolic CHF. EKG reveals no signs of acute ST elevation; There is left axis deviation/mild LVH appreciated. Trops flat. Document Image Technician was consulted. Recommended to discontinue metoprolol due to severe COPD which was done and started patient on a calcium channel miguel angel . added lisinopril 20mg po daily due to elevated BP's Document Image Technician does not think patient is CHF. Document Image Technician discontinue Lasix. Lasix was restarted by sewer pipe offbearer at 20 mg IV twice a day but now on lasix 20mg po daily. Pt previously did have a 11 run of Vtach on TELE and was asymptomatic, RN has placed a call to Dr. Nielsen regarding this. Pt currently asymptomatic Normocytic anemia/ Thrombocytopenia- fairly stable- will monitor CAP Previously on ciprofloxacin and Terramycin aerosols twice a day. Sputum culture with normal thalia. - continue levaquin - blood cultures and sputum cultures are negative. Muscle spasms -Most likely secondary to dehydration from severe diuresing. -Lasix was changed. -on Flexeril when necessary.on gabapentin 100mg po tid as i suspect there is a component of neuropathy hypocalcemia noted: replace w tums, monitor Hypernatremia The pt was on NS. resolved. - off NS. Deconditioned - physical therapist following. PPx: SCD/Lovenox Discharge Planning dc to hospice. had a long discussion with the patient and the . see med list. time spent 35 min. Cecy Paul MD Oct 30, 2016 08:13
--- NOTE | 2016-10-30 08:14 | HHI.DCPOC ---
Discharge Care Plan Diagnosis: (1) Acute exacerbation of chronic obstructive pulmonary disease (COPD) Your Health Problems Are: Shortness of Breath Goals to Promote Your Health * To prevent worsening of your condition and complications * To maintain your health at the optimal level Directions to Meet Your Goals Take your medications as prescribed Follow your dietary instruction Follow activity as directed Keep your appointments as scheduled Take your immunizations and boosters as scheduled If your symptoms worsen call your PCP, if no PCP go to Urgent Care Center or Emergency Room Smoking is Dangerous to Your Health. Avoid second hand smoke Call the 24-hour hour crisis hotline for domestic abuse at Cecy Paul MD Oct 30, 2016 08:14
[2016-10-30] MEDS: POTASSIUM CHLORIDE 20 MEQ CONTROLLED RELEASE TAB PO SCH (09:41)
[2016-10-30] MEDS: DILTIAZEM-CD 180 MG CAP ER PO SCH (09:46)
[2016-10-30] MEDS: CALCIUM CARBONATE 500 MG CHEWABLE TAB CHEW SCH (09:46)
[2016-10-30] MEDS: predniSONE 20 MG TAB PO SCH (09:46)
[2016-10-30] MEDS: FUROSEMIDE 20 MG TAB PO SCH (09:47)
[2016-10-30] MEDS: GABAPENTIN 100 MG CAP PO SCH ×2 (09:47→14:56)
[2016-10-30] MEDS: ASCORBIC ACID 500 MG TAB PO SCH (09:47)
[2016-10-30] MEDS: ASPIRIN EC 81 MG TABEC PO SCH (09:47)
[2016-10-30] MEDS: LISINOPRIL 20 MG TAB PO SCH (09:48)
[2016-10-30] MEDS: MULTIVITAMIN TAB PO SCH (09:49)
[2016-10-30] MEDS: DOCUSATE SODIUM 50 MG/SENNA 8.6 MG TAB PO SCH (09:49)
[2016-10-30] MEDS: PANTOPRAZOLE SODIUM 40 MG VIAL IV SCH (09:52)
[2016-10-30] MEDS: BUDESONIDE-FORMOTEROL 160/4.5 MCG INHALER INH SCH (09:59)
[2016-10-30] MEDS: ARTIFICIAL TEARS OPTH SOLN 15 ML BTL EACH EYE SCH (10:00)
[2016-10-30] MEDS: SODIUM CHLORIDE 0.9% FLUSH 10 ML FLUSH IV FLUSH SCH (10:04)
[2016-10-30 10:35] VITALS: PULSE 105
[2016-10-30] MEDS: LEVOFLOXACIN 500 MG TAB PO SCH (11:29)
--- NOTE | 2016-10-30 11:33 | HHI.HCPN ---
Palliative care consulted to assist with goals of care, consulted by Dr. Knapp with possible plan to discharge to hospice. Met with Mrs. Pinedo and Jovi. Mrs. Pinedo presents anxious, frustrated, and confused. Verbalizes she is having trouble remembering things, does not wish to make decisions on her own. She is well supported by her , Jovi, and states she would like him to serve as her voice and make decisions regarding her care. Mrs. Pinedo becomes tearful regarding her current medical condition. Verbalizes she does not want to stay in the hospital, and does not wish to come back and forth to the hospital anymore. Gently discussed hospice, she defers to Jovi to make decision, although she verbalizes agreement to meeting with hospice. Met with in waiting area per his request. He verbalized understanding of Mrs. Pinedo's medical condition. He reviews with me his conversation with Dr. Knapp and medical attending. He is appropriately tearful throughout conversation. Answered questions and concerns to the best of my ability. Verbalizes some concern regarding Mrs. Pinedo hallucinating. He desires to meet with hospice with desire to go to [facility]. Hospice order entered by Migdalia PUGA. Case management notified. Hospice admission notified. Palliative care number provided. Palliative care will continue to follow throughout hospitalization. Nguyen Connor, DRIER TRANSFER CAR OPERATOR Oct 30, 2016 11:33
[2016-10-30 12:00] VITALS: BP 145/69; PULSE 110; RESP 18; TEMP 98.4; O2SAT 94
--- NOTE | 2016-10-30 12:30 | HHI.DS ---
Discharge Summary Admission Date Oct 19, 2016 at 16:48 Discharge Date: Oct 30, 2016 Admitting Diagnosis respiratory distress, hypoxia, respiratory acidosis (1) Acute exacerbation of chronic obstructive pulmonary disease (COPD) ICD Code: J44.1 Diagnosis: Principal (2) Atypical pneumonia ICD Code: J18.9 Diagnosis: Principal (3) Chronic respiratory failure with hypoxia ICD Code: J96.11 Diagnosis: Principal (4) Hypertension ICD Code: I10 Diagnosis: Principal (5) CAD (coronary artery disease) ICD Code: I25.10 Diagnosis: Principal (6) Vertical strabismus, left eye ICD Code: H50.22 Diagnosis: Principal (7) Osteoarthritis ICD Code: M19.90 Diagnosis: Principal (8) History of myocardial infarction ICD Code: I25.2 Diagnosis: Principal Procedures none Brief History - From Admission 66-year-old female. Date of admission 10/19/2016. Past medical history includes chronic respiratory failure on 3-4 L nasal cannula at home and follows with Dr. Knapp for pulmonology. Past medical history as includes osteoarthritis, history of coronary disease status post [place] 10 years ago and hypertension. Patient resists the [facility] ED with a two-week history of increasing shortness of breath, sputum production/green to white. No hemoptysis. CBC/BMP: 10/27/16 0615 10/28/16 0717 Significant Findings Laboratory Tests Test 10/28/16 07:17 Chloride Level 93 MEQ/L (98-107) Carbon Dioxide Level 43.2 MEQ/L (21.0-32.0) Anion Gap 3 MEQ/L (5-15) Creatinine 0.34 MG/DL (0.50-1.00) Random Glucose 136 MG/DL (74-106) Calcium Level 8.4 MG/DL (8.5-10.1) Imaging Last Impressions Chest X-Ray 10/22/16 0600 Signed Impressions: Service Date/Time: Saturday, October 22, 2016 02:51 - CONCLUSION: No significant interval change. Ajit Luna MD Chest CT 10/20/16 0000 Signed Impressions: Service Date/Time: Thursday, October 20, 2016 16:55 - CONCLUSION: 1. Moderate- sized bilateral pleural effusions with adjacent compressive atelectasis and/or infiltrates. Clinical correlation is recommended. 2. Diffuse ground-glass densities within the aerated portions of both lungs raising the possibility of pulmonary vascular congestion. 3. Cardiomegaly. 4. Stable mediastinal lymphadenopathy which is nonspecific. 5. Degenerative changes and scoliosis of the thoracic spine. 6. Stable calcified granuloma within the left lower lobe. Shaw Mancini MD Lower Extremity Ultrasound 10/19/16 0000 Signed Impressions: Service Date/Time: October 18:51 - CONCLUSION: No DVT of either lower extremity. Negro Rodrigez MD PE at Discharge GENERAL: This is a well-nourished, well-developed patient, in no apparent distress. CARDIOVASCULAR: Regular rate and regular rhythm without murmurs, gallops, or rubs. RESPIRATORY: diminished air entry in bases GASTROINTESTINAL: Abdomen soft, non-tender, nondistended. Normal, active bowel sounds MUSCULOSKELETAL: Extremities without clubbing, cyanosis, or edema. NEURO: Alert & Oriented x4 to person, place, time, situation. Moves all ext x4 Transfer Summary Please see note Hospital Course -Acute on chronic hypercarbic respiratory failure/ COPD- History of obstructive lung disease. No smoking history. Alpha-1 anti-trypsin workup negative. CT chest showed: Moderate-sized bilateral pleural effusions with adjacent compressive atelectasis and/or infiltrates; Diffuse ground-glass densities within the aerated portions of both lungs raising the possibility of pulmonary vascular congestion; Stable mediastinal lymphadenopathy which is nonspecific; Stable calcified granuloma within the left lower lobe. oxygen as needed to keep saturations around 90% and Bipap as needed; of note the patient is oxygen dependent. continue levaquin and prednisone. has been off the BiPaP over night. pulmonary follow-up appreciated and recommended palliative care/ hospice evaluation. -Acute grade 1 diastolic CHF/ Coronary artery disease Echo with normal EF, grade 1 diastolic CHF. EKG reveals no signs of acute ST elevation; There is left axis deviation/mild LVH appreciated. Trops flat. Supervisor Steffen House was consulted. Recommended to discontinue metoprolol due to severe COPD which was done and started patient on a calcium channel miguel angel . added lisinopril 20mg po daily due to elevated BP's Supervisor Steffen House does not think patient is CHF. Supervisor Steffen House discontinue Lasix. Lasix was restarted by die repair at 20 mg IV twice a day but now on lasix 20mg po daily. Pt previously did have a 11 run of Vtach on TELE and was asymptomatic, RN has placed a call to Dr. Nielsen regarding this. Pt currently asymptomatic Normocytic anemia/ Thrombocytopenia- fairly stable- will monitor CAP Previously on ciprofloxacin and Terramycin aerosols twice a day. Sputum culture with normal thalia. - continue levaquin - blood cultures and sputum cultures are negative. Muscle spasms -Most likely secondary to dehydration from severe diuresing. -Lasix was changed. -on Flexeril when necessary.on gabapentin 100mg po tid as i suspect there is a component of neuropathy hypocalcemia noted: replace w tums, monitor Hypernatremia The pt was on NS. resolved. - off NS. Deconditioned - physical therapist following. Pt Condition on Discharge: Fair Discharge Disposition: Hospice/Med Facility Discharge Time: > 30 minutes Discharge Instructions DIET: Follow Instructions for: Heart Healthy Diet Activities you can perform: Regular-No Restrictions Follow up Referrals: PCP Follow-up Pulmonology New Medications: Prednisone (Prednisone) 5 Mg Tab 5 MG PO DIRECTED 30 mg po daily for two days then 20 mg po daily for two days then 10 mg po daily for two days then 5 mg po daily for two days then stop. copd Days 8 Ref 0 TAB Diltiazem CD 24 HR (Cardizem CD 24 HR) 180 Mg Caper 180 MG PO DAILY hypertension Days 30 Ref 0 CAP Levofloxacin (Levaquin) 500 Mg Tablet 500 MG PO DAILY@11 pneumonia Days 7 Ref 0 TAB Lisinopril (Lisinopril) 20 Mg Tab 20 MG PO DAILY hypertension Days 30 Ref 0 TAB Lorazepam (Ativan) 0.5 Mg Tab 0.25 MG PO Q12HR PRN anxiety #10 Ref 0 TAB Continued Medications: Albuterol 8.5 GM Inh (Proair Hfa 8.5 GM Inh) 90 Mcg/Act Aer 2 PUFF INH Q4-6H 108 mcg/actuation PRN SHORTNESS OF BREATH #1 Ref 0 INHALER Albuterol Neb (Albuterol Neb) 2.5 Mg/3 Ml Neb 2.5 MG NEB TID NEB PRN SHORTNESS OF BREATH #60 Ref 0 NEBULE Ascorbic Acid (Vitamin C) 250 Mg Chew 250 MG CHEW BID Nutritional Supplement #[address] (Aspirin 81) 81 Mg Tabdr 81 MG PO DAILY Ref 0 TAB Budesonide-Formoterol Inh (Symbicort Inh) 160-4.5 Mcg/Act Aero 2 PUFF INH Q12HR #1 Ref 0 INHALER Lactobacillus Acidophilus (Probiotic) 1 Cap Cap 1 CAP PO BID Nutritional Supplement #90 Ref 0 CAP Multiple Vitamin (Multi Vitamin Daily) 1 Tab Tab 1 TAB PO DAILY Sodium Chloride (Sodium Chloride) 1 Gm Tab 1 GM PO BID Electrolyte Replacement Ref 0 TAB Sodium Chloride (Sodium Chloride) 1 Gm Tab 1 GM PO BID Electrolyte Replacement Ref 0 TAB Tiotropium Inh (Spiriva Handihaler) 18 Mcg Cap 18 MCG INH DAILY 1 capsule = 18 mcg COPD #30 Ref 0 CAP Discontinued Medications: Ciprofloxacin (Cipro) 500 Mg Tab 500 MG PO BID Infection Ref 0 TAB Metoprolol Tartrate (Metoprolol Tartrate) 50 Mg Tab 50 MG PO BID #60 Ref 0 TAB Hnsbibazpoiss-XM-Tddkcwcfzeb Liq (Mucinex Congestion & Cough) 2.5-5-100 Mg/5 Ml Liq Pseudoephedrine-Guaifenesin (Mucinex D Maximum Strength) 120-1,200 Mg Tab Unknown Dose Tobramycin Neb (Tobramycin Neb) 300 Mg/5 Ml Neb 300 MG NEB TID Infection Ref 0 Cecy Arcos MD Oct 30, 2016 12:30
[2016-10-30] MEDS: LORazepam 0.5 MG TAB PO PRN (14:57)
== END 2016-10-30 15:22 | disposition hospice, inpatient (51) | DRG 189 ==
LOC: NEPE 13:45 → NEDA 16:48 → HIMW 20:24 → N04B 10-20 15:38 → HIME 10-21 11:00 → N04A 10-26 22:00
PROVIDERS: ADMIT Internal Medicine; ATTEND Internal Medicine
PROC: 5A09457 Assistance with Respiratory Ventilation, 24-96 Consecutive Hours, Continuous Positive Airway Pressure (ICD-10-PCS; principal; 2016-10-19)
DX: J96.21 Acute and chronic respiratory failure with hypoxia (principal); E41 Nutritional marasmus; I50.31 Acute diastolic (congestive) heart failure; I47.2 Ventricular tachycardia; J18.9 Pneumonia, unspecified organism; E87.0 Hyperosmolality and hypernatremia; E87.4 Mixed disorder of acid-base balance; D69.6 Thrombocytopenia, unspecified; E83.51 Hypocalcemia; J44.0 Chronic obstructive pulmonary disease with (acute) lower respiratory infection; J44.1 Chronic obstructive pulmonary disease with (acute) exacerbation; Z68.1 Body mass index [BMI] 19.9 or less, adult; R44.3 Hallucinations, unspecified; E86.0 Dehydration; I11.0 Hypertensive heart disease with heart failure; J96.22 Acute and chronic respiratory failure with hypercapnia; Z99.81 Dependence on supplemental oxygen; I10 Essential (primary) hypertension; I25.10 Atherosclerotic heart disease of native coronary artery without angina pectoris; H50.22 Vertical strabismus, left eye; I25.2 Old myocardial infarction; D64.9 Anemia, unspecified; M62.838 Other muscle spasm; T50.1X5A Adverse effect of loop [high-ceiling] diuretics, initial encounter; M46.92 Unspecified inflammatory spondylopathy, cervical region; I83.90 Asymptomatic varicose veins of unspecified lower extremity; Z51.5 Encounter for palliative care; Z66 Do not resuscitate; Z88.2 Allergy status to sulfonamides
CPT/HCPCS: 36600; 71010; 71250; 80048; 80053; 80076; 80202; 81001; 82805; 83605; 83690; 83735; 83880; 84100; 84155; 84484; 85025; 85027; 85610; 85730; 86022; 87040; 87070; 87205; 87641; 93005; 93306; 93970; 94002; 94003; 94150; 94640; 94664; 96374; 96375; C9113; J0456; J0692; J1650; J1940; J2060; J2405; J2920; J2930; J3370; J7030; J7050; J7512; J7613